=== PATIENT | female | born 1950 | race Caucasian/White ===

== ENCOUNTER 2017-07-10 11:35 | Emergency (ER) | payer MEDICARE, OTHER ==
--- NOTE | 2017-07-10 12:15 | PDOC ---
History of Present Illness - General Chief Complaint: Blood Sugar Problem Stated Complaint: Blood Sugar Problem Time Seen by Provider: 07/10/17 12:13 History Source: Patient - History of Present Illness Initial Comments: 07/10/17 12:49 66F with pmh of HTN, bleeding ulcers and anemia s/p transfusion 2 weeks ago presents with weakness and high blood sugar of 300 after pre-syncopal episode during visit to her PCP this morning [employer] Dr. Hazel Ledesma. Patient says that Dr. Ledesma asked her to stop taking her blood pressure medication. Called DR. Ledesma who said she was never on bloop pressure medication. He just told her to halve her Glipizide from 10mg to 5mg. Past History - Past Medical History Allergies/Adverse Reactions: Allergies Allergy/AdvReac Type Severity Reaction Status Date / Time No Known Allergies Allergy Verified 07/10/17 12:16 Home Medications: Ambulatory Orders Cholecalciferol (Vitamin D3) [Vitamin D3] 5,000 unit PO DAILY 07/10/17 Ferrous Sulfate [Ferosul] 300 mg PO DAILY 07/10/17 Glipizide 10 mg PO DAILY 07/10/17 Linagliptin [Tradjenta] 5 mg PO DAILY 07/10/17 Mesalamine [Asacol Hd -] 800 mg PO TID 07/10/17 Pantoprazole Sodium 40 mg PO DAILY 07/10/17 Review of Systems - Review of Systems Constitutional: No: Symptoms Reported HEENTM: No: Symptoms Reported Respiratory: No: Symptoms reported Cardiac (ROS): No: Symptoms Reported ABD/GI: No: Symptoms Reported : No: Symptoms Reported Musculoskeletal: Yes: Muscle Weakness (b/t) Neurological: Yes: Weakness *Physical Exam - Physical Exam General Appearance: Yes: Nourished, Appropriately Dressed, Apparent Distress HEENT: positive: EOMI, ESTEBAN, Normal ENT Inspection Neck: positive: Trachea midline. negative: Tender Respiratory/Chest: positive: Lungs Clear, Normal Breath Sounds. negative: Chest Tender Cardiovascular: positive: Regular Rhythm, Regular Rate, S1, S2 Vascular Pulses: Dorsalis-Pedis (R): 2+, Doralis-Pedis (L): 2+ Gastrointestinal/Abdominal: positive: Normal Bowel Sounds. negative: Tender Extremity: positive: Normal Capillary Refill Integumentary: positive: Normal Color Neurologic: positive: Fully Oriented, Alert, Normal Mood/Affect, Other (feels weaker) ED Treatment Course - LABORATORY CBC & Chemistry Diagram: 07/10/17 12:45 07/10/17 12:45 Medical Decision Making - Medical Decision Making 07/10/17 16:33 66F with pmh of HTN, bleeding ulcers and anemia s/p transfusion 2 weeks ago presents with weakness and high blood sugar of 300 after pre-syncopal episode during visit to her PCP this morning Anemia vs infection vs DKA - hyperglycemic event CBC negative for anemia, UA + for glucose, no ketones. Negative cardiac enzymes and EKG Spoke to Dr. Interiano who agrees to discharge patient and have her follow come to his office outpatient if she can ambulate. Patient able to ambulate, ready for discharge. 07/10/17 18:51 07/10/17 18:56 07/10/17 18:58 *DC/Admit/Observation/Transfer Diagnosis at time of Disposition: Hyperglycemia, Pre-syncope - Discharge Dispostion Disposition: HOME Condition at time of disposition: Improved Admit: No - Referrals Referrals: Thomas Interiano MD [Primary Care Provider] - - Patient Instructions Print Language: SWEDISH
[2017-07-10 12:16] VITALS: TEMP 98.4; BMI 34.7
[2017-07-10] MEDS ORDERED: SODIUM CHLORIDE 0.9% 1000 ML INFUS.BAG IV ONE (12:18)
[2017-07-10 12:52] LABS: BASOPHIL 0.2 % (0-2.0); EOSINOPHIL 0.3 % (0-4.5); MCHC 33.4 g/dl (32.0-36.0); MEAN CELL VOLUME 83.9 fl (80-96); NEUTROPHILS 82.3 % (42.8-82.8); PLATELET COUNT 151 K/MM3 (134-434); WHITE BLOOD COUNT 4.4 K/mm3 (4.0-10.0)
[2017-07-10 12:55] LABS: VENOUS BLOOD GAS HCO3 26.3 meq/L (19-25); VENOUS PH 7.42 (7.32-7.42)
[2017-07-10 13:20] LABS: CO2 28 mmol/L (21-32); GLUCOSE,RANDOM 260 mg/dL (74-106)
[2017-07-10 13:21] LABS: ALBUMIN 3.5 g/dl (3.4-5.0); ANION GAP 8 (8-16); CALCIUM 8.9 mg/dL (8.5-10.1); SGOT/AST 16 U/L (15-37); SGPT/ALT 30 U/L (12-78)
[2017-07-10 14:25] LABS: ALK PHOS 84 U/L (45-117); CREATININE 0.9 mg/dL (0.55-1.02); TOT PROT 6.8 g/dl (6.4-8.2)
[2017-07-10 16:11] LABS: BILIRUBIN,TOTAL 0.4 mg/dL (0.2-1.0)
[2017-07-10 16:17] LABS: URINE APPEARANCE CLEAR; URINE BILIRUBIN NEGATIVE (NEGATIVE); URINE BLOOD NEGATIVE (NEGATIVE); URINE COLOR COLORLESS; URINE GLUCOSE (UA) 3+ (NEGATIVE); URINE KETONE NEGATIVE (NEGATIVE); URINE LEUK ESTERASE NEGATIVE (NEGATIVE); URINE NITRITE NEGATIVE (NEGATIVE); URINE PROTEIN NEGATIVE (NEGATIVE); URINE UROBILINOGEN NEGATIVE mg/dL (0.2-1.0)
[2017-07-10 18:44] LABS: CPK 77 IU/L (26-192); TROPONIN I < 0.02 ng/ml (0.00-0.05)
[2017-07-10 19:09] VITALS: BP 158/75; PULSE 62
[2017-07-10 21:21] LABS: CPK 78 IU/L (26-192); TROPONIN I < 0.02 ng/ml (0.00-0.05)
--- NOTE | 2017-07-12 16:48 | EKG ---
Test Reason : Blood Pressure : / mmHG Vent. Rate : 083 BPM Atrial Rate : 083 BPM P-R Int : 154 ms QRS Dur : 072 ms QT Int : 380 ms P-R-T Axes : 054 001 010 degrees QTc Int : 446 ms NORMAL SINUS RHYTHM POSSIBLE LEFT ATRIAL ENLARGEMENT LEFT VENTRICULAR HYPERTROPHY ABNORMAL ECG NO PREVIOUS ECGS AVAILABLE Confirmed by LONNIE KHALIL MD ([id number]) on 07/12/2017 4:48:04 PM Referred By: Confirmed By:LONNIE KHALIL MD
== END 2017-07-10 19:10 | disposition home or self-care (01) ==
LOC: JER 11:35
DX: R73.9 Hyperglycemia, unspecified (principal); I10 Essential (primary) hypertension; D64.9 Anemia, unspecified
CPT/HCPCS: 36415; 80053; 81003; 82009; 82803; 84484; 85025; 93005; 93010; 99284-25

== ENCOUNTER 2017-09-18 17:40 | Inpatient (IN) | payer MEDICARE, OTHER ==
[2017-09-18 20:47] LABS: BASOPHIL 0.4 % (0-2.0); EOSINOPHIL 0.6 % (0-4.5); MCH 27.8 pg (25.7-33.7); MCHC 33.8 g/dl (32.0-36.0); MEAN CELL VOLUME 82.4 fl (80-96); MEAN PLT VOLUME 7.5 fl (7.5-11.1); NEUTROPHILS 81.7 % (42.8-82.8); PLATELET COUNT 220 K/MM3 (134-434); RDW 13.8 % (11.6-15.6)
--- NOTE | 2017-09-18 21:04 | PDOC ---
History of Present Illness <Ilda Rodriguez - Last Filed: 09/18/17 21:07> - General History Source: Patient Exam Limitations: No Limitations - History of Present Illness Initial Comments: 09/18/17 21:50 The patient is a 67 year old female, with a significant past medical history of NIDDM, HLD who presents to the emergency department with redness, swelling and pain to R foot for the past 5 days. Patient reports stepping on a nail on , and since then has been experiencing these symptoms. Patient has been treating the area with local cream however denies any relief. Upon arrival, patient reports headache. Patients vital signs significant for 99.3 temperature. She denies chest pain, dizziness. She denies abdominal pain, nausea, vomit, diarrhea or constipation. She denies dysuria, frequency, urgency or hematuria. Patient denies sick contacts or recent travel. <Unique Munoz - Last Filed: 09/18/17 21:51> - General Chief Complaint: Wound Infection Stated Complaint: FOOT INFECTION Time Seen by Provider: 09/18/17 19:23 Past History - Past Medical History Cancer: Yes (Uterine) Diabetes: Yes HTN: Yes - Immunization History Immunization Up to Date: Yes - Suicide/Smoking/Psychosocial Hx Smoking History: Never smoked Have you smoked in the past 12 months: No Information on smoking cessation initiated: No Hx Alcohol Use: No Drug/Substance Use Hx: No Substance Use Type: None <Ilda Rodriguez - Last Filed: 09/18/17 21:07> <Unique Munoz - Last Filed: 09/18/17 21:51> - Past Medical History Allergies/Adverse Reactions: Allergies Allergy/AdvReac Type Severity Reaction Status Date / Time No Known Allergies Allergy Verified 09/18/17 17:45 Home Medications: Ambulatory Orders Cholecalciferol (Vitamin D3) [Vitamin D3] 5,000 unit PO DAILY 07/10/17 Ferrous Sulfate [Ferosul] 300 mg PO BID 07/10/17 Linagliptin [Tradjenta] 5 mg PO DAILY 07/10/17 Mesalamine [Asacol Hd -] 800 mg PO TID 07/10/17 Pantoprazole Sodium 40 mg PO DAILY 07/10/17 Amlodipine Besylate 5 mg PO DAILY 09/18/17 Aspirin [ASA -] 81 mg PO DAILY 09/18/17 Hydrochlorothiazide [Hctz -] 12.5 mg PO DAILY 09/18/17 Insulin Degludec [Tresiba Flextouch U-100] 55 unit SQ DAILY 09/18/17 Metformin HCl 500 mg PO DAILY 09/18/17 Oxybutynin Chloride [Ditropan Xl] 10 mg PO DAILY 09/18/17 Psyllium Husk [Metamucil] 425 gm PO DAILY 09/18/17 Ramipril 2.5 mg PO DAILY 09/18/17 Review of Systems - Review of Systems Able to Perform ROS?: Yes Comments:: 09/18/17 21:50 CONSTITUTIONAL: Absent: fever, chills, diaphoresis, generalized weakness, malaise, loss of appetite HEENT: Absent: rhinorrhea, nasal congestion, throat pain, throat swelling, difficulty swallowing, mouth swelling, ear pain, eye pain, visual Changes CARDIOVASCULAR: Absent: chest pain, syncope, palpitations, irregular heart rate, lightheadedness , peripheral edema RESPIRATORY: Absent: cough, shortness of breath, dyspnea with exertion, orthopnea, wheezing, stridor, hemoptysis GASTROINTESTINAL: Absent: abdominal pain, abdominal distension, nausea, vomiting, diarrhea, constipation, melena, hematochezia GENITOURINARY: Absent: dysuria, frequency, urgency, hesitancy, hematuria, flank pain, genital pain MUSCULOSKELETAL: Absent: myalgia, arthralgia, joint swelling SKIN: + R foot puncture wound. Absent: rash, itching, pallor HEMATOLOGIC/IMMUNOLOGIC: Absent: easy bleeding, easy bruising, lymphadenopathy, frequent infections ENDOCRINE: Absent: unexplained weight gain, unexplained weight loss, heat intolerance, cold intolerance NEUROLOGIC: Absent: headache, focal weakness or paresthesias, dizziness, unsteady gait, seizure, mental status changes, bladder or bowel incontinence PSYCHIATRIC: Absent: anxiety, depression, suicidal or homicidal ideation, hallucinations. <Unique Munoz - Last Filed: 09/18/17 21:51> *Physical Exam - Vital Signs Last Vital Signs Temp Pulse Resp BP Pulse Ox 99.3 F 96 H 18 165/85 99 09/18/17 17:43 09/18/17 17:43 09/18/17 17:43 09/18/17 17:43 09/18/17 20:43 <Ilda Rodriguez - Last Filed: 09/18/17 21:07> - Vital Signs Last Vital Signs Temp Pulse Resp BP Pulse Ox 99.3 F 96 H 18 165/85 99 09/18/17 17:43 09/18/17 17:43 09/18/17 17:43 09/18/17 17:43 09/18/17 20:43 - Physical Exam Comments: 09/18/17 21:51 GENERAL: Well developed, well nourished. Awake and alert. No acute distress. HEENT: Normocephalic, atraumatic. PERRLA, EOMI. No conjunctival pallor. Sclera are non- icteric. Moist mucous membranes. Oropharynx is clear. NECK: Supple. Full ROM. No JVD. Carotid pulses 2+ and symmetric, without bruits. No thyromegaly. No lymphadenopathy. CARDIOVASCULAR: Regular rate and rhythm. +3/6 Systolic murmur. No rubs, or gallops. Distal pulses are 2+ and symmetric. PULMONARY: No evidence of respiratory distress. Lungs clear to auscultation bilaterally. No wheezing, rales or rhonchi. ABDOMINAL: Soft. Non-tender. Non-distended. No rebound or guarding. No organomegaly. Normoactive bowel sounds. MUSCULOSKELETAL Normal range of motion at all joints. No bony deformities or tenderness. No CVA tenderness. EXTREMITIES: +Warm, swollen, erythematous, R foot with streaking from knee to foot. +Puncture wound on ball of R foot. No cyanosis. No clubbing. No edema. No calf tenderness. SKIN: Warm and dry. Normal capillary refill. No rashes. No jaundice. NEUROLOGICAL: Alert, awake, appropriate. Cranial nerves 2-12 intact. No deficits to light touch and temperature in face, upper extremities and lower extremities. No motor deficits in the in face, upper extremities and lower extremities. Normoreflexic in the upper and lower extremities. Normal speech. Toes are down-going bilaterally. Gait is normal without ataxia. PSYCHIATRIC: Cooperative. Good eye contact. Appropriate mood and affect. <Unique Munoz - Last Filed: 09/18/17 21:51> ED Treatment Course - LABORATORY CBC & Chemistry Diagram: 09/18/17 20:30 09/18/17 20:30 - ADDITIONAL ORDERS Additional order review: 09/18/17 20:30 RBC 3.65 MCV 82.4 MCHC 33.8 RDW 13.8 MPV 7.5 Neutrophils % 81.7 Lymphocytes % 11.1 Monocytes % 6.2 Eosinophils % 0.6 D Basophils % 0.4 - RADIOLOGY Radiology Studies Ordered: Category Date Time Status CHEST X-RAY PORTABLE* [RAD] Stat Radiology 09/18/17 20:23 Ordered FOOT-RIGHT [RAD] Stat Radiology 09/18/17 20:37 Ordered <Ilda Rodriguez - Last Filed: 09/18/17 21:07> - LABORATORY CBC & Chemistry Diagram: 09/18/17 20:30 09/18/17 20:30 - ADDITIONAL ORDERS Additional order review: Laboratory Results 09/18/17 09/18/17 09/18/17 20:30 20:30 20:30 PT with INR 12.20 H INR 1.08 PTT (Actin FS) 29.2 Sodium 138 Potassium 4.6 Chloride 104 Carbon Dioxide 27 Anion Gap 7 L BUN 22 H Creatinine 1.1 H D Creat Clearance w eGFR 49.54 Random Glucose 165 H D Lactic Acid 1.1 Calcium 8.5 Total Bilirubin 0.5 D AST 12 L D ALT 35 Alkaline Phosphatase 81 Total Protein 7.2 Albumin 3.2 L 09/18/17 20:30 RBC 3.65 MCV 82.4 MCHC 33.8 RDW 13.8 MPV 7.5 Neutrophils % 81.7 Lymphocytes % 11.1 Monocytes % 6.2 Eosinophils % 0.6 D Basophils % 0.4 <Unique Munoz - Last Filed: 09/18/17 21:51> *DC/Admit/Observation/Transfer - Discharge Dispostion Admit: Yes <Ilda Rodriguez - Last Filed: 09/18/17 21:07> - Attestations Scribe Attestion: 09/18/17 21:51 Documentation prepared by Unique Munoz, acting as diagnostic medical sonographer for Ilda Rodriguez MD <Unique Munoz - Last Filed: 09/18/17 21:51> Diagnosis at time of Disposition: Puncture wound of foot without foreign body Qualifiers: Encounter type: initial encounter Laterality: right Qualified Code(s): S91.331A - Puncture wound without foreign body, right foot, initial encounter Cellulitis, leg Qualifiers: Laterality: right Qualified Code(s): L03.115 - Cellulitis of right lower limb Diabetes Qualifiers: Diabetes mellitus type: type 2 Diabetes mellitus complication status: with other specified complication Diabetes mellitus mcfp insulin use: without emt intermediate use Qualified Code(s): E11.69 - Type 2 diabetes mellitus with other specified complication - Referrals Referrals: Arlene Mcknight [Primary Care Provider] -
[2017-09-18 21:17] LABS: INR 1.08 (0.82-1.09); PROTHROMBIN TIME (PATIENT) 12.2 SEC (9.98-11.88)
[2017-09-18 21:19] LABS: ACTIVATED PTT 29.2 SECONDS (26.9-34.4)
[2017-09-18 21:25] LABS: ALBUMIN 3.2 g/dl (3.4-5.0); ALK PHOS 81 U/L (45-117); ANION GAP 7 (8-16); BILIRUBIN,TOTAL 0.5 mg/dL (0.2-1.0); CALCIUM 8.5 mg/dL (8.5-10.1); CO2 27 mmol/L (21-32); CREATININE 1.1 mg/dL (0.55-1.02); GLUCOSE,RANDOM 165 mg/dL (74-106); SGOT/AST 12 U/L (15-37); SGPT/ALT 35 U/L (12-78); TOT PROT 7.2 g/dl (6.4-8.2)
[2017-09-18] MEDS ORDERED: PIPERACILLIN/TAZOB 3.375 GM 50 ML IVPB ONE ×2 (22:25→22:32)
[2017-09-18] MEDS ORDERED: VANCOMYCIN 1,000 MG in DEXTROSE 5%-WATER - 250 ML IVPB STA (22:26)
[2017-09-18] MEDS ORDERED: TETANUS AND DIPHTHERIA TOXOID 0.5 ML DISP.SYRIN IM ONE (22:27)
[2017-09-18] MEDS ORDERED: VANCOMYCIN 1 GRAM (PRE-DOCKED) 250 ML IVPB ONE (22:32)
[2017-09-18] MEDS: HEPARIN NA (PORCINE) 5,000 UNITS/ML 1ML VIAL SQ SCH (22:50)
--- NOTE | 2017-09-18 22:58 | HP ---
Admitting History and Physical - Primary Care Physician PCP: Temo Guevara - Admission History of Present Illness: 67 year old female, with a significant past medical history of NIDDM, HLD who presents to the emergency department with redness, swelling and pain to R foot for the past 5 days. Patient reports stepping on a nail on , and since then has been experiencing these symptoms. Patient has been treating the area with local cream however denies any relief. Upon arrival, patient reports headache. Patients vital signs significant for 99.3 temperature. - Past Medical History Cardiovascular: Yes: HTN, Hyperlipdemia Endocrine: Yes: Diabetes Mellitus - Smoking History Smoking history: Never smoked Have you smoked in the past 12 months: No - Alcohol/Substance Use Hx Alcohol Use: No Home Medications - Allergies Allergies/Adverse Reactions: Allergies Allergy/AdvReac Type Severity Reaction Status Date / Time No Known Allergies Allergy Verified 09/18/17 17:45 - Home Medications Home Medications: Ambulatory Orders Cholecalciferol (Vitamin D3) [Vitamin D3] 5,000 unit PO DAILY 07/10/17 Ferrous Sulfate [Ferosul] 300 mg PO DAILY 07/10/17 Linagliptin [Tradjenta] 5 mg PO DAILY 07/10/17 Mesalamine [Asacol Hd -] 800 mg PO TID 07/10/17 Pantoprazole Sodium 40 mg PO DAILY 07/10/17 Amlodipine Besylate 5 mg PO DAILY 09/18/17 Aspirin [ASA -] 81 mg PO DAILY 09/18/17 Hydrochlorothiazide [Hctz -] 12.5 mg PO DAILY 09/18/17 Insulin Degludec [Tresiba Flextouch U-100] 55 unit SQ DAILY 09/18/17 Metformin HCl 500 mg PO DAILY 09/18/17 Oxybutynin Chloride [Ditropan Xl] 10 mg PO DAILY 09/18/17 Psyllium Husk [Metamucil] 425 gm PO DAILY 09/18/17 Ramipril 2.5 mg PO DAILY 09/18/17 Physical Examination Vital Signs: Vital Signs Temperature 99.3 F 09/18/17 17:43 Pulse Rate 96 H 09/18/17 17:43 Respiratory Rate 18 09/18/17 17:43 Blood Pressure 165/85 09/18/17 17:43 O2 Sat by Pulse Oximetry (%) 99 09/18/17 20:43 Constitutional: Yes: No Distress HENT: Yes: Atraumatic Neck: Yes: Supple Cardiovascular: Yes: Regular Rate and Rhythm Respiratory: Yes: CTA Bilaterally Gastrointestinal: Yes: Normal Bowel Sounds Extremities: Yes: Other (R foot cellulitis) Neurological: Yes: Alert, Oriented Problem List - Problems (1) Diabetes Assessment/Plan: insulin bgms Code(s): E11.9 - TYPE 2 DIABETES MELLITUS WITHOUT COMPLICATIONS Qualifiers: Diabetes mellitus type: type 2 Diabetes mellitus complication status: with other specified complication Diabetes mellitus senior care insulin use: without senior care use Qualified Code(s): E11.69 - Type 2 diabetes mellitus with other specified complication; E11.69 - Type 2 diabetes mellitus with other specified complication; E11.69 - Type 2 diabetes mellitus with other specified complication; E11.69 - Type 2 diabetes mellitus with other specified complication; Z79.4 - terminal carman (current) use of insulin; Z79.4 - terminal carman ( current) use of insulin; Z79.4 - terminal carman (current) use of insulin; Z79.4 - terminal carman (current) use of insulin (2) Puncture wound of foot without foreign body Assessment/Plan: iv abx id and ortho consult Code(s): S91.339A - PUNCTURE WOUND WITHOUT FOREIGN BODY, UNSP FOOT, INIT ENCNTR Qualifiers: Encounter type: initial encounter Laterality: right Qualified Code( s): S91.331A - Puncture wound without foreign body, right foot, initial encounter; S91.331A - Puncture wound without foreign body, right foot, initial encounter (3) Cellulitis and abscess of foot Code(s): L03.119 - CELLULITIS OF UNSPECIFIED PART OF LIMB L02.619 - CUTANEOUS ABSCESS OF UNSPECIFIED FOOT Assessment/Plan Laboratory Tests 09/18/17 09/18/17 09/18/17 20:30 20:30 20:30 WBC 7.0 D RBC 3.65 Hgb 10.2 L Hct 30.1 L MCV 82.4 MCH 27.8 MCHC 33.8 RDW 13.8 Plt Count 220 D MPV 7.5 Neutrophils % 81.7 Lymphocytes % 11.1 Monocytes % 6.2 Eosinophils % 0.6 D Basophils % 0.4 PT with INR 12.20 H INR 1.08 PTT (Actin FS) 29.2 Sodium 138 Potassium 4.6 Chloride 104 Carbon Dioxide 27 Anion Gap 7 L BUN 22 H Creatinine 1.1 H D Creat Clearance w eGFR 49.54 Random Glucose 165 H D Lactic Acid Calcium 8.5 Total Bilirubin 0.5 D AST 12 L D ALT 35 Alkaline Phosphatase 81 Total Protein 7.2 Albumin 3.2 L 09/18/17 20:30 WBC RBC Hgb Hct MCV MCH MCHC RDW Plt Count MPV Neutrophils % Lymphocytes % Monocytes % Eosinophils % Basophils % PT with INR INR PTT (Actin FS) Sodium Potassium Chloride Carbon Dioxide Anion Gap BUN Creatinine Creat Clearance w eGFR Random Glucose Lactic Acid 1.1 Calcium Total Bilirubin AST ALT Alkaline Phosphatase Total Protein Albumin Active Medications Generic Name Dose Route Start Last Admin Trade Name Freq PRN Reason Stop Dose Admin Amlodipine Besylate 5 mg 09/19/17 10:00 Norvasc - PO DAILY [facility] Aspirin 81 mg 09/19/17 10:00 Asa - PO DAILY [facility] Heparin Sodium (Porcine) 5,000 unit 09/18/17 22:49 Heparin - SQ BID [facility] Hydrochlorothiazide 12.5 mg 09/19/17 10:00 Hctz - PO DAILY [facility] Vancomycin HCl 1,000 mg/ 250 mls @ 250 mls/hr 09/18/17 22:26 09/18/17 22:46 Dextrose IVPB 09/18/17 23:25 250 mls/hr ONCE STA Administration Protocol Insulin Aspart 1 vial 09/19/17 07:00 Novolog Vial Sliding Scale - SQ ACHS [facility] Protocol Mesalamine 800 mg 09/19/17 06:00 Asacol Hd - PO TID [facility] Metformin HCl 500 mg 09/19/17 07:00 Glucophage - PO DAILY@0700 [facility] Non-Formulary Medication 10 mg 09/19/17 10:00 Oxybutynin Chloride [Ditropan Xl] PO DAILY [facility] Pantoprazole Sodium 40 mg 09/19/17 10:00 Protonix - PO DAILY [facility] Sitagliptin Phosphate 50 mg 09/19/17 07:00 Januvia - PO DAILY@0700 [facility]
[2017-09-19 01:19] VITALS: BMI 24.7
[2017-09-19] MEDS: metFORMIN HCL 500 MG TABLET (FP) PO SCH (06:08)
[2017-09-19] MEDS: sitaGLIPtin PHOSPHATE 50 MG TABLET PO SCH (06:08)
[2017-09-19] MEDS: MESALAMINE 800 MG TABLET.DR PO SCH ×4 (06:08→21:30)
[2017-09-19] MEDS: INSULIN SLIDING SCALE (NOVOLOG) 1 VIAL SQ SCH ×4 (06:09→21:29)
[2017-09-19] MEDS ORDERED: PT OWN MED DRAWER 7, Y5N ONE (09:07)
[2017-09-19] MEDS: amLODIPine BESYLATE 5 MG TABLET (FP) PO SCH (09:09)
[2017-09-19] MEDS: ASPIRIN 81 MG CHEWABLE TABLETS PO SCH (09:09)
[2017-09-19] MEDS: HYDROCHLOROTHIAZIDE 12.5 MG CAPSULE (FP) PO SCH (09:09)
[2017-09-19] MEDS: PANTOPRAZOLE 40 MG TABLET (FP) PO SCH (09:09)
[2017-09-19] MEDS: HEPARIN NA (PORCINE) 5,000 UNITS/ML 1ML VIAL SQ SCH ×2 (09:09→21:30)
[2017-09-19] MEDS ORDERED: PATIENT'S OWN MEDICATION (NON-FORMULARY) (Oxybutynin Chloride [Ditropan Xl] 10 MG) PO SCH (10:00)
[2017-09-19] MEDS ORDERED: INSULIN (NOVOLOG) ASPART 100 UNITS/ML 10ML VIAL ONE ×2 (11:25→21:04)
--- NOTE | 2017-09-19 15:44 | CON.ID ---
Consult Consult Specialty:: infectious diseases Reason for Consultation:: cellulitits of the rt leg and foot/nail injury - History of Present Illness Chief Complaint: pain swelling and redness of the rt leg History of Present Illness: 67 year old female, with a significant past medical history of NIDDM, HLD admitted with redness, swelling and pain to R foot for the past 5 days. Patient reports stepping on a nail on , and since then has been experiencing these symptoms. Patient has been treating the area with local cream however denies any relief. Upon arrival, patient reports headache. Patients vital signs significant for 99.3 temperature. patient lives in a basement and did not know the nail was there now she is c/o of pain and swelling which has not improved - History Source History Provided By: Patient Limitations to Obtaining History: Language Barrier - Past Medical History Cardio/Vascular: Yes: HTN, Hyperlipdemia Endocrine: Yes: Diabetes Mellitus - Alcohol/Substance Use Hx Alcohol Use: No - Smoking History Smoking history: Never smoked Have you smoked in the past 12 months: No Home Medications - Allergies Allergies/Adverse Reactions: Allergies Allergy/AdvReac Type Severity Reaction Status Date / Time No Known Allergies Allergy Verified 09/18/17 17:45 - Home Medications Home Medications: Ambulatory Orders Cholecalciferol (Vitamin D3) [Vitamin D3] 5,000 unit PO DAILY 07/10/17 Ferrous Sulfate [Ferosul] 300 mg PO DAILY 07/10/17 Linagliptin [Tradjenta] 5 mg PO DAILY 07/10/17 Mesalamine [Asacol Hd -] 800 mg PO TID 07/10/17 Pantoprazole Sodium 40 mg PO DAILY 07/10/17 Amlodipine Besylate 5 mg PO DAILY 09/18/17 Aspirin [ASA -] 81 mg PO DAILY 09/18/17 Hydrochlorothiazide [Hctz -] 12.5 mg PO DAILY 09/18/17 Insulin Degludec [Tresiba Flextouch U-100] 55 unit SQ DAILY 09/18/17 Metformin HCl 500 mg PO DAILY 09/18/17 Oxybutynin Chloride [Ditropan Xl] 10 mg PO DAILY 09/18/17 Psyllium Husk [Metamucil] 425 gm PO DAILY 09/18/17 Ramipril 2.5 mg PO DAILY 09/18/17 Review of Systems - Review of Systems Constitutional: reports: No Symptoms Eyes: reports: No Symptoms HENT: reports: No Symptoms Neck: reports: No Symptoms Cardiovascular: reports: No Symptoms Respiratory: reports: No Symptoms Gastrointestinal: reports: No Symptoms Genitourinary: reports: No Symptoms Musculoskeletal: reports: Muscle Pain, Other Integumentary: reports: Change in Color, Erythema, Wound Neurological: reports: No Symptoms Endocrine: reports: No Symptoms Hematology/Lymphatic: reports: No Symptoms Psychiatric: reports: No Symptoms Physical Exam Vital Signs: Vital Signs Temperature 99.1 F 09/19/17 14:12 Pulse Rate 84 09/19/17 14:12 Respiratory Rate 20 09/19/17 14:12 Blood Pressure 153/63 09/19/17 14:12 O2 Sat by Pulse Oximetry (%) 98 09/19/17 09:00 Constitutional: Yes: Well Nourished, Calm, Mild Distress Eyes: Yes: Conjunctiva Clear HENT: Yes: Atraumatic Neck: Yes: Supple, Trachea Midline Cardiovascular: Yes: Regular Rate and Rhythm Respiratory: Yes: Regular, CTA Bilaterally Gastrointestinal: Yes: Normal Bowel Sounds, Soft Musculoskeletal: Yes: Muscle Pain, Other Extremities: Yes: Erythema, Other (nail njury site noted) Integumentary: Yes: Erythema, Other Wound/Incision: Yes: Clean/Dry Neurological: Yes: Alert, Oriented Psychiatric: Yes: Alert, Oriented Imaging - Results Chest X-ray: Report Reviewed, Image Reviewed X-ray: Report Reviewed, Image Reviewed Assessment/Plan history noted,also noticed streaking of the leg and swelling and tenderness Problem List - Problems (1) Diabetes Code(s): E11.9 - TYPE 2 DIABETES MELLITUS WITHOUT COMPLICATIONS Qualifiers: Diabetes mellitus type: type 2 Diabetes mellitus complication status: with other specified complication Diabetes mellitus mcc insulin use: without mcc use Qualified Code(s): E11.69 - Type 2 diabetes mellitus with other specified complication; E11.69 - Type 2 diabetes mellitus with other specified complication; E11.69 - Type 2 diabetes mellitus with other specified complication; E11.69 - Type 2 diabetes mellitus with other specified complication; Z79.4 - office services coordinator (current) use of insulin; Z79.4 - snf ( current) use of insulin; Z79.4 - snf (current) use of insulin; Z79.4 - snf (current) use of insulin (2) Puncture wound of foot without foreign body Code(s): S91.339A - PUNCTURE WOUND WITHOUT FOREIGN BODY, UNSP FOOT, INIT ENCNTR Qualifiers: Encounter type: initial encounter Laterality: right Qualified Code( s): S91.331A - Puncture wound without foreign body, right foot, initial encounter; S91.331A - Puncture wound without foreign body, right foot, initial encounter (3) Cellulitis and abscess of foot Code(s): L03.119 - CELLULITIS OF UNSPECIFIED PART OF LIMB L02.619 - CUTANEOUS ABSCESS OF UNSPECIFIED FOOT plan patient going to need abx for few days started on vanco and zosyn elevation of leg rest as per primary team
[2017-09-19] MEDS: PIPERACILLIN/TAZOB 3.375 GM 50 ML IVPB SCH (16:09)
--- NOTE | 2017-09-19 16:35 | PN ---
Progress Note, Physician - Current Medication List Current Medications: Active Medications Amlodipine Besylate (Norvasc -) 5 mg PO DAILY [facility] Last Admin: 09/19/17 09:09 Dose: 5 mg Aspirin (Asa -) 81 mg PO DAILY [facility] Last Admin: 09/19/17 09:09 Dose: 81 mg Heparin Sodium (Porcine) (Heparin -) 5,000 unit SQ BID [facility] Last Admin: 09/19/17 09:09 Dose: 5,000 unit Hydrochlorothiazide (Hctz -) 12.5 mg PO DAILY [facility] Last Admin: 09/19/17 09:09 Dose: 12.5 mg Vancomycin HCl 1,250 mg/ (Dextrose) 250 mls @ 166.667 mls/hr IVPB DAILY@2200 [facility] PRN Reason: Protocol Piperacillin/Tazobactam/Dextrose (Zosyn 3.375gm Ivpb (Premix)) 50 mls @ 100 mls /hr IVPB Q8H-IV [facility] PRN Reason: Protocol Last Admin: 09/19/17 16:09 Dose: 100 mls/hr Insulin Aspart (Novolog Vial Sliding Scale -) 1 vial SQ ACHS [facility] PRN Reason: Protocol Last Admin: 09/19/17 11:27 Dose: 4 units Mesalamine (Asacol Hd -) 800 mg PO TID [facility] Last Admin: 09/19/17 15:47 Dose: 800 mg Metformin HCl (Glucophage -) 500 mg PO DAILY@0700 [facility] Last Admin: 09/19/17 06:08 Dose: 500 mg Oxybutynin Chloride (Ditropan -) 5 mg PO BID [facility] Pantoprazole Sodium (Protonix -) 40 mg PO DAILY [facility] Last Admin: 09/19/17 09:09 Dose: 40 mg Sitagliptin Phosphate (Januvia -) 50 mg PO DAILY@0700 [facility] Last Admin: 09/19/17 06:08 Dose: 50 mg - Objective Vital Signs: Vital Signs Temperature 99.1 F 09/19/17 14:12 Pulse Rate 84 09/19/17 14:12 Respiratory Rate 20 09/19/17 14:12 Blood Pressure 153/63 09/19/17 14:12 O2 Sat by Pulse Oximetry (%) 98 09/19/17 09:00 Constitutional: Yes: No Distress HENT: Yes: Atraumatic Neck: Yes: Supple Cardiovascular: Yes: Regular Rate and Rhythm Respiratory: Yes: CTA Bilaterally Gastrointestinal: Yes: Normal Bowel Sounds Extremities: Yes: Other (r foot cellulitis) Neurological: Yes: Alert, Oriented Labs: INR, PTT INR 1.08 (0.82-1.09) 09/18/17 20:30 Problem List - Problems (1) Diabetes Assessment/Plan: insulin bgms Code(s): E11.9 - TYPE 2 DIABETES MELLITUS WITHOUT COMPLICATIONS Qualifiers: Diabetes mellitus type: type 2 Diabetes mellitus complication status: with other specified complication Diabetes mellitus local company intermodal truck driver insulin use: without shelter use Qualified Code(s): E11.69 - Type 2 diabetes mellitus with other specified complication; E11.69 - Type 2 diabetes mellitus with other specified complication; E11.69 - Type 2 diabetes mellitus with other specified complication; E11.69 - Type 2 diabetes mellitus with other specified complication; Z79.4 - termite helper (current) use of insulin; Z79.4 - long-term ( current) use of insulin; Z79.4 - termite helper (current) use of insulin; Z79.4 - termite helper (current) use of insulin (2) Puncture wound of foot without foreign body Assessment/Plan: iv abx id and ortho consult Code(s): S91.339A - PUNCTURE WOUND WITHOUT FOREIGN BODY, UNSP FOOT, INIT ENCNTR Qualifiers: Encounter type: initial encounter Laterality: right Qualified Code( s): S91.331A - Puncture wound without foreign body, right foot, initial encounter; S91.331A - Puncture wound without foreign body, right foot, initial encounter (3) Cellulitis and abscess of foot Code(s): L03.119 - CELLULITIS OF UNSPECIFIED PART OF LIMB L02.619 - CUTANEOUS ABSCESS OF UNSPECIFIED FOOT
--- NOTE | 2017-09-19 16:39 | PN ---
Progress Note (short form) - Note Progress Note: Pt seen and examined. She does not speak israeli. She sustained a puncture wound to the right foot, after stepping on a nail 4 days ago. The right foot became increasingly swollen, red, painful. No pus or discharge. WBC=7.0 Bld Cx Pending PE Right foot with moderate swelling, erythema, tenderness. Grossly NVI. Good ROM at the ankle, but ROM of the foot is painful. No drainage, no obvious fluid collection. Imp Right foot cellulitis s/p puncture wound. No surgery required at this time. Rec No surgery necessary at this time. Con't IV antibiotics and elevation.
--- NOTE | 2017-09-19 19:52 | EKG ---
Test Reason : Blood Pressure : / mmHG Vent. Rate : 085 BPM Atrial Rate : 085 BPM P-R Int : 156 ms QRS Dur : 074 ms QT Int : 370 ms P-R-T Axes : 057 012 028 degrees QTc Int : 440 ms NORMAL SINUS RHYTHM MINIMAL VOLTAGE CRITERIA FOR LVH, MAY BE NORMAL VARIANT NONSPECIFIC ST ABNORMALITY ABNORMAL ECG WHEN COMPARED WITH ECG OF 10-JUL-2017 11:55, NO SIGNIFICANT CHANGE WAS FOUND REPEATV IF INDICATED Confirmed by LONNIE KHALIL MD ([id number]) on 09/19/2017 7:52:07 PM Referred By: Confirmed By:LONNIE KHALIL MD
[2017-09-19] MEDS: VANCOMYCIN 1,250 MG in DEXTROSE 5%-WATER - 250 ML IVPB SCH (21:30)
[2017-09-19] MEDS: OXYBUTYNIN CHLORIDE 5 MG TABLET PO SCH (21:30)
[2017-09-19] MEDS: ACETAMINOPHEN 325 MG TABLET (FP) PO PRN (21:53)
[2017-09-20] MEDS: PIPERACILLIN/TAZOB 3.375 GM 50 ML IVPB SCH ×3 (01:21→17:17)
[2017-09-20] MEDS: metFORMIN HCL 500 MG TABLET (FP) PO SCH (06:16)
[2017-09-20] MEDS: sitaGLIPtin PHOSPHATE 50 MG TABLET PO SCH (06:16)
[2017-09-20] MEDS: MESALAMINE 800 MG TABLET.DR PO SCH ×3 (06:17→21:38)
[2017-09-20] MEDS: INSULIN SLIDING SCALE (NOVOLOG) 1 VIAL SQ SCH ×4 (06:18→21:39)
[2017-09-20] MEDS ORDERED: INSULIN (NOVOLOG) ASPART 100 UNITS/ML 10ML VIAL ONE ×2 (06:40→11:53)
--- NOTE | 2017-09-20 09:35 | PN ---
Progress Note (short form) - Note Progress Note: Ortho Pt seen and examined s/p puncture wound right foot Selected Entries 09/20/17 09:13 Temperature 98.3 F Pulse Rate 87 Respiratory 20 Rate Blood Pressure 144/65 Laboratory Tests 09/18/17 20:30 Hgb 10.2 L Hct 30.1 L Plt Count 220 D + swelling, + errythema that has not extended, + ttp nvi a/p Abx as per ID no surgery at this time elevation pain control will follow d/w Dr. Patel
[2017-09-20] MEDS ORDERED: PT OWN MED DRAWER 7, Y5N ONE ×5 (09:52→21:31)
[2017-09-20] MEDS: ASPIRIN 81 MG CHEWABLE TABLETS PO SCH (09:54)
[2017-09-20] MEDS: amLODIPine BESYLATE 5 MG TABLET (FP) PO SCH (09:54)
[2017-09-20] MEDS: OXYBUTYNIN CHLORIDE 5 MG TABLET PO SCH ×2 (09:54→21:38)
[2017-09-20] MEDS: HEPARIN NA (PORCINE) 5,000 UNITS/ML 1ML VIAL SQ SCH ×2 (09:55→21:39)
[2017-09-20] MEDS: HYDROCHLOROTHIAZIDE 12.5 MG CAPSULE (FP) PO SCH (09:55)
[2017-09-20] MEDS: PANTOPRAZOLE 40 MG TABLET (FP) PO SCH (09:55)
--- NOTE | 2017-09-20 15:40 | PN ---
Progress Note, Physician History of Present Illness: swelling slightly better cellulitis better pain still present - Current Medication List Current Medications: Active Medications Acetaminophen (Tylenol -) 650 mg PO Q6H PRN PRN Reason: FEVER OR PAIN Last Admin: 09/19/17 21:53 Dose: 650 mg Amlodipine Besylate (Norvasc -) 5 mg PO DAILY [facility] Last Admin: 09/20/17 09:54 Dose: 5 mg Aspirin (Asa -) 81 mg PO DAILY [facility] Last Admin: 09/20/17 09:54 Dose: 81 mg Heparin Sodium (Porcine) (Heparin -) 5,000 unit SQ BID [facility] Last Admin: 09/20/17 09:55 Dose: 5,000 unit Hydrochlorothiazide (Hctz -) 12.5 mg PO DAILY [facility] Last Admin: 09/20/17 09:55 Dose: 12.5 mg Vancomycin HCl 1,250 mg/ (Dextrose) 250 mls @ 166.667 mls/hr IVPB DAILY@2200 [facility] PRN Reason: Protocol Last Admin: 09/19/17 21:30 Dose: 166.667 mls/hr Piperacillin/Tazobactam/Dextrose (Zosyn 3.375gm Ivpb (Premix)) 50 mls @ 100 mls /hr IVPB Q8H-IV [facility] PRN Reason: Protocol Last Admin: 09/20/17 11:39 Dose: 100 mls/hr Insulin Aspart (Novolog Vial Sliding Scale -) 1 vial SQ ACHS [facility] PRN Reason: Protocol Last Admin: 09/20/17 11:54 Dose: 4 units Mesalamine (Asacol Hd -) 800 mg PO TID [facility] Last Admin: 09/20/17 14:18 Dose: 800 mg Metformin HCl (Glucophage -) 500 mg PO DAILY@0700 [facility] Last Admin: 09/20/17 06:16 Dose: 500 mg Oxybutynin Chloride (Ditropan -) 5 mg PO BID [facility] Last Admin: 09/20/17 09:54 Dose: 5 mg Pantoprazole Sodium (Protonix -) 40 mg PO DAILY [facility] Last Admin: 09/20/17 09:55 Dose: 40 mg Sitagliptin Phosphate (Januvia -) 50 mg PO DAILY@0700 [facility] Last Admin: 09/20/17 06:16 Dose: 50 mg - Objective Vital Signs: Vital Signs Temperature 99.5 F 09/20/17 15:12 Pulse Rate 86 09/20/17 15:12 Respiratory Rate 20 09/20/17 15:12 Blood Pressure 139/77 09/20/17 15:12 O2 Sat by Pulse Oximetry (%) 100 09/20/17 09:00 Constitutional: Yes: No Distress, Calm Neck: Yes: Supple, Trachea Midline Cardiovascular: Yes: Regular Rate and Rhythm Respiratory: Yes: Regular, CTA Bilaterally Gastrointestinal: Yes: Normal Bowel Sounds, Soft Musculoskeletal: Yes: WNL Extremities: Yes: Other Integumentary: Yes: Erythema Wound/Incision: Yes: Clean/Dry Neurological: Yes: Alert, Oriented Psychiatric: Yes: Alert, Oriented Labs: INR, PTT INR 1.08 (0.82-1.09) 09/18/17 20:30 Assessment/Plan history noted,also noticed streaking of the leg and swelling and tenderness Problem List - Problems (1) Diabetes Code(s): E11.9 - TYPE 2 DIABETES MELLITUS WITHOUT COMPLICATIONS Qualifiers: Diabetes mellitus type: type 2 Diabetes mellitus complication status: with other specified complication Diabetes mellitus custodial insulin use: without intermodal dispatcher use Qualified Code(s): E11.69 - Type 2 diabetes mellitus with other specified complication; E11.69 - Type 2 diabetes mellitus with other specified complication; E11.69 - Type 2 diabetes mellitus with other specified complication; E11.69 - Type 2 diabetes mellitus with other specified complication; Z79.4 - shelter (current) use of insulin; Z79.4 - shelter ( current) use of insulin; Z79.4 - bed bug exterminator (current) use of insulin; Z79.4 - bed bug exterminator (current) use of insulin (2) Puncture wound of foot without foreign body Code(s): S91.339A - PUNCTURE WOUND WITHOUT FOREIGN BODY, UNSP FOOT, INIT ENCNTR Qualifiers: Encounter type: initial encounter Laterality: right Qualified Code( s): S91.331A - Puncture wound without foreign body, right foot, initial encounter; S91.331A - Puncture wound without foreign body, right foot, initial encounter (3) Cellulitis and abscess of foot Code(s): L03.119 - CELLULITIS OF UNSPECIFIED PART OF LIMB L02.619 - CUTANEOUS ABSCESS OF UNSPECIFIED FOOT punctuate wound plan continue abx follow the cellulitits elevation of the leg rest as per primary
--- NOTE | 2017-09-20 17:44 | PN ---
Progress Note, Physician - Current Medication List Current Medications: Active Medications Acetaminophen (Tylenol -) 650 mg PO Q6H PRN PRN Reason: FEVER OR PAIN Last Admin: 09/19/17 21:53 Dose: 650 mg Amlodipine Besylate (Norvasc -) 5 mg PO DAILY [facility] Last Admin: 09/20/17 09:54 Dose: 5 mg Aspirin (Asa -) 81 mg PO DAILY [facility] Last Admin: 09/20/17 09:54 Dose: 81 mg Heparin Sodium (Porcine) (Heparin -) 5,000 unit SQ BID [facility] Last Admin: 09/20/17 09:55 Dose: 5,000 unit Hydrochlorothiazide (Hctz -) 12.5 mg PO DAILY [facility] Last Admin: 09/20/17 09:55 Dose: 12.5 mg Vancomycin HCl 1,250 mg/ (Dextrose) 250 mls @ 166.667 mls/hr IVPB DAILY@2200 [facility] PRN Reason: Protocol Last Admin: 09/19/17 21:30 Dose: 166.667 mls/hr Piperacillin/Tazobactam/Dextrose (Zosyn 3.375gm Ivpb (Premix)) 50 mls @ 100 mls /hr IVPB Q8H-IV [facility] PRN Reason: Protocol Last Admin: 09/20/17 17:17 Dose: 100 mls/hr Insulin Aspart (Novolog Vial Sliding Scale -) 1 vial SQ ACHS [facility] PRN Reason: Protocol Last Admin: 09/20/17 17:17 Dose: 4 units Mesalamine (Asacol Hd -) 800 mg PO TID [facility] Last Admin: 09/20/17 14:18 Dose: 800 mg Metformin HCl (Glucophage -) 500 mg PO DAILY@0700 [facility] Last Admin: 09/20/17 06:16 Dose: 500 mg Oxybutynin Chloride (Ditropan -) 5 mg PO BID [facility] Last Admin: 09/20/17 09:54 Dose: 5 mg Pantoprazole Sodium (Protonix -) 40 mg PO DAILY [facility] Last Admin: 09/20/17 09:55 Dose: 40 mg Sitagliptin Phosphate (Januvia -) 50 mg PO DAILY@0700 [facility] Last Admin: 09/20/17 06:16 Dose: 50 mg - Objective Vital Signs: Vital Signs Temperature 99.5 F 09/20/17 15:12 Pulse Rate 86 09/20/17 15:12 Respiratory Rate 20 09/20/17 15:12 Blood Pressure 139/77 09/20/17 15:12 O2 Sat by Pulse Oximetry (%) 100 09/20/17 09:00 Constitutional: Yes: No Distress HENT: Yes: Atraumatic Neck: Yes: Supple Cardiovascular: Yes: Regular Rate and Rhythm Respiratory: Yes: CTA Bilaterally Gastrointestinal: Yes: Normal Bowel Sounds Extremities: Yes: Other (R foot cellulitis) Neurological: Yes: Alert, Oriented Labs: INR, PTT INR 1.08 (0.82-1.09) 09/18/17 20:30 Problem List - Problems (1) Diabetes Assessment/Plan: insulin bgms Code(s): E11.9 - TYPE 2 DIABETES MELLITUS WITHOUT COMPLICATIONS Qualifiers: Diabetes mellitus type: type 2 Diabetes mellitus complication status: with other specified complication Diabetes mellitus prison insulin use: without oil heaterman use Qualified Code(s): E11.69 - Type 2 diabetes mellitus with other specified complication; E11.69 - Type 2 diabetes mellitus with other specified complication; E11.69 - Type 2 diabetes mellitus with other specified complication; E11.69 - Type 2 diabetes mellitus with other specified complication; Z79.4 - skilled nursing (current) use of insulin; Z79.4 - intermediate card tender ( current) use of insulin; Z79.4 - intermediate card tender (current) use of insulin; Z79.4 - intermediate card tender (current) use of insulin (2) Puncture wound of foot without foreign body Assessment/Plan: iv abx id and ortho consult Code(s): S91.339A - PUNCTURE WOUND WITHOUT FOREIGN BODY, UNSP FOOT, INIT ENCNTR Qualifiers: Encounter type: initial encounter Laterality: right Qualified Code( s): S91.331A - Puncture wound without foreign body, right foot, initial encounter; S91.331A - Puncture wound without foreign body, right foot, initial encounter (3) Cellulitis and abscess of foot Code(s): L03.119 - CELLULITIS OF UNSPECIFIED PART OF LIMB L02.619 - CUTANEOUS ABSCESS OF UNSPECIFIED FOOT
[2017-09-20] MEDS: VANCOMYCIN 1,250 MG in DEXTROSE 5%-WATER - 250 ML IVPB SCH (21:46)
[2017-09-21] MEDS: PIPERACILLIN/TAZOB 3.375 GM 50 ML IVPB SCH ×3 (02:14→17:18)
[2017-09-21] MEDS: MESALAMINE 800 MG TABLET.DR PO SCH ×3 (06:14→21:50)
[2017-09-21] MEDS: metFORMIN HCL 500 MG TABLET (FP) PO SCH (06:15)
[2017-09-21] MEDS: INSULIN SLIDING SCALE (NOVOLOG) 1 VIAL SQ SCH ×5 (06:16→21:51)
[2017-09-21] MEDS: sitaGLIPtin PHOSPHATE 50 MG TABLET PO SCH (06:16)
[2017-09-21 07:34] LABS: BASOPHIL 0.3 % (0-2.0); EOSINOPHIL 0.7 % (0-4.5); MCH 27.1 pg (25.7-33.7); MEAN CELL VOLUME 79.6 fl (80-96); MEAN PLT VOLUME 7.3 fl (7.5-11.1); NEUTROPHILS 77.2 % (42.8-82.8); PLATELET COUNT 224 K/MM3 (134-434); RDW 13.8 % (11.6-15.6); WHITE BLOOD COUNT 7.2 K/mm3 (4.0-10.0)
[2017-09-21 08:03] LABS: ALBUMIN 2.7 g/dl (3.4-5.0); ANION GAP 7 (8-16); CALCIUM 8.3 mg/dL (8.5-10.1); CO2 27 mmol/L (21-32)
[2017-09-21 08:06] LABS: ALK PHOS 88 U/L (45-117); BILIRUBIN,TOTAL 0.5 mg/dL (0.2-1.0); GLUCOSE,RANDOM 174 mg/dL (74-106); SGOT/AST 19 U/L (15-37); SGPT/ALT 37 U/L (12-78); TOT PROT 6.5 g/dl (6.4-8.2)
[2017-09-21] MEDS ORDERED: PT OWN MED DRAWER 7, Y5N ONE ×2 (09:05→21:15)
[2017-09-21] MEDS: HYDROCHLOROTHIAZIDE 12.5 MG CAPSULE (FP) PO SCH (09:19)
[2017-09-21] MEDS: ASPIRIN 81 MG CHEWABLE TABLETS PO SCH (09:19)
[2017-09-21] MEDS: amLODIPine BESYLATE 5 MG TABLET (FP) PO SCH (09:19)
[2017-09-21] MEDS: HEPARIN NA (PORCINE) 5,000 UNITS/ML 1ML VIAL SQ SCH ×2 (09:19→21:51)
[2017-09-21] MEDS: PANTOPRAZOLE 40 MG TABLET (FP) PO SCH (09:19)
[2017-09-21] MEDS: OXYBUTYNIN CHLORIDE 5 MG TABLET PO SCH ×2 (09:19→21:50)
[2017-09-21] MEDS ORDERED: INSULIN (NOVOLOG) ASPART 100 UNITS/ML 10ML VIAL ONE (11:56)
--- NOTE | 2017-09-21 15:14 | PN ---
Progress Note, Physician History of Present Illness: patient still with c/o of the foot foot still swollen and now i think has formed pus tenderness present redness still there - Current Medication List Current Medications: Active Medications Acetaminophen (Tylenol -) 650 mg PO Q6H PRN PRN Reason: FEVER OR PAIN Last Admin: 09/19/17 21:53 Dose: 650 mg Amlodipine Besylate (Norvasc -) 5 mg PO DAILY [facility] Last Admin: 09/21/17 09:19 Dose: 5 mg Aspirin (Asa -) 81 mg PO DAILY [facility] Last Admin: 09/21/17 09:19 Dose: 81 mg Heparin Sodium (Porcine) (Heparin -) 5,000 unit SQ BID [facility] Last Admin: 09/21/17 09:19 Dose: 5,000 unit Hydrochlorothiazide (Hctz -) 12.5 mg PO DAILY [facility] Last Admin: 09/21/17 09:19 Dose: 12.5 mg Vancomycin HCl 1,250 mg/ (Dextrose) 250 mls @ 166.667 mls/hr IVPB DAILY@2200 [facility] PRN Reason: Protocol Last Admin: 09/20/17 21:46 Dose: 166.667 mls/hr Piperacillin/Tazobactam/Dextrose (Zosyn 3.375gm Ivpb (Premix)) 50 mls @ 100 mls /hr IVPB Q8H-IV [facility] PRN Reason: Protocol Last Admin: 09/21/17 09:19 Dose: 100 mls/hr Insulin Aspart (Novolog Vial Sliding Scale -) 1 vial SQ ACHS [facility] PRN Reason: Protocol Last Admin: 09/21/17 12:07 Dose: 4 units Mesalamine (Asacol Hd -) 800 mg PO TID [facility] Last Admin: 09/21/17 14:20 Dose: 800 mg Metformin HCl (Glucophage -) 500 mg PO DAILY@0700 [facility] Last Admin: 09/21/17 06:15 Dose: 500 mg Oxybutynin Chloride (Ditropan -) 5 mg PO BID [facility] Last Admin: 09/21/17 09:19 Dose: 5 mg Pantoprazole Sodium (Protonix -) 40 mg PO DAILY [facility] Last Admin: 09/21/17 09:19 Dose: 40 mg Sitagliptin Phosphate (Januvia -) 50 mg PO DAILY@0700 [facility] Last Admin: 10/26/17 06:16 Dose: 50 mg - Objective Vital Signs: Vital Signs Temperature 97.9 F 09/21/17 14:09 Pulse Rate 79 09/21/17 14:09 Respiratory Rate 20 09/21/17 14:09 Blood Pressure 131/65 09/21/17 14:09 O2 Sat by Pulse Oximetry (%) 98 09/20/17 21:00 Constitutional: Yes: Calm, Mild Distress Eyes: Yes: Conjunctiva Clear HENT: Yes: Atraumatic Cardiovascular: Yes: Regular Rate and Rhythm Respiratory: Yes: Regular, CTA Bilaterally Gastrointestinal: Yes: Normal Bowel Sounds, Soft Musculoskeletal: Yes: Other Extremities: Yes: Other (left foot abscess) Integumentary: Yes: Erythema, Other Wound/Incision: Yes: Open to air Neurological: Yes: Alert, Oriented Psychiatric: Yes: Alert, Oriented Labs: CBC, BMP 09/21/17 06:00 09/21/17 06:00 INR, PTT INR 1.08 (0.82-1.09) 09/18/17 20:30 Assessment/Plan history noted,also noticed streaking of the leg and swelling and tenderness Problem List - Problems (1) Diabetes Code(s): E11.9 - TYPE 2 DIABETES MELLITUS WITHOUT COMPLICATIONS Qualifiers: Diabetes mellitus type: type 2 Diabetes mellitus complication status: with other specified complication Diabetes mellitus intermediate accountant insulin use: without intermediate accountant use Qualified Code(s): E11.69 - Type 2 diabetes mellitus with other specified complication; E11.69 - Type 2 diabetes mellitus with other specified complication; E11.69 - Type 2 diabetes mellitus with other specified complication; E11.69 - Type 2 diabetes mellitus with other specified complication; Z79.4 - long-term (current) use of insulin; Z79.4 - long-term ( current) use of insulin; Z79.4 - long-term (current) use of insulin; Z79.4 - long-term (current) use of insulin (2) Puncture wound of foot without foreign body Code(s): S91.339A - PUNCTURE WOUND WITHOUT FOREIGN BODY, UNSP FOOT, INIT ENCNTR Qualifiers: Encounter type: initial encounter Laterality: right Qualified Code( s): S91.331A - Puncture wound without foreign body, right foot, initial encounter; S91.331A - Puncture wound without foreign body, right foot, initial encounter (3) Cellulitis and abscess of foot Code(s): L03.119 - CELLULITIS OF UNSPECIFIED PART OF LIMB L02.619 - CUTANEOUS ABSCESS OF UNSPECIFIED FOOT punctuate wound plan continue abx follow the cellulitits patient needs incision and drainage rest as per the team
--- NOTE | 2017-09-21 19:41 | PN ---
Progress Note, Physician History of Present Illness: no complaints - Current Medication List Current Medications: Active Medications Acetaminophen (Tylenol -) 650 mg PO Q6H PRN PRN Reason: FEVER OR PAIN Last Admin: 09/19/17 21:53 Dose: 650 mg Amlodipine Besylate (Norvasc -) 5 mg PO DAILY [facility] Last Admin: 09/21/17 09:19 Dose: 5 mg Aspirin (Asa -) 81 mg PO DAILY [facility] Last Admin: 09/21/17 09:19 Dose: 81 mg Heparin Sodium (Porcine) (Heparin -) 5,000 unit SQ BID [facility] Last Admin: 09/21/17 09:19 Dose: 5,000 unit Hydrochlorothiazide (Hctz -) 12.5 mg PO DAILY [facility] Last Admin: 09/21/17 09:19 Dose: 12.5 mg Vancomycin HCl 1,250 mg/ (Dextrose) 250 mls @ 166.667 mls/hr IVPB DAILY@2200 [facility] PRN Reason: Protocol Last Admin: 09/20/17 21:46 Dose: 166.667 mls/hr Piperacillin/Tazobactam/Dextrose (Zosyn 3.375gm Ivpb (Premix)) 50 mls @ 100 mls /hr IVPB Q8H-IV [facility] PRN Reason: Protocol Last Admin: 09/21/17 17:18 Dose: 100 mls/hr Insulin Aspart (Novolog Vial Sliding Scale -) 1 vial SQ ACHS [facility] PRN Reason: Protocol Last Admin: 09/21/17 17:31 Dose: Not Given Mesalamine (Asacol Hd -) 800 mg PO TID [facility] Last Admin: 09/21/17 14:20 Dose: 800 mg Metformin HCl (Glucophage -) 500 mg PO DAILY@0700 [facility] Last Admin: 09/21/17 06:15 Dose: 500 mg Oxybutynin Chloride (Ditropan -) 5 mg PO BID [facility] Last Admin: 09/21/17 09:19 Dose: 5 mg Pantoprazole Sodium (Protonix -) 40 mg PO DAILY [facility] Last Admin: 09/21/17 09:19 Dose: 40 mg Sitagliptin Phosphate (Januvia -) 50 mg PO DAILY@0700 [facility] Last Admin: 09/21/17 06:16 Dose: 50 mg - Objective Vital Signs: Vital Signs Temperature 98.2 F 09/21/17 18:00 Pulse Rate 74 09/21/17 18:00 Respiratory Rate 20 09/21/17 18:00 Blood Pressure 135/68 09/21/17 18:00 O2 Sat by Pulse Oximetry (%) 95 09/21/17 09:00 Constitutional: Yes: No Distress HENT: Yes: Atraumatic Neck: Yes: Supple Cardiovascular: Yes: Regular Rate and Rhythm Respiratory: Yes: CTA Bilaterally Extremities: Yes: Other (R FOOT SWOLLEN) Neurological: Yes: Alert, Oriented Labs: CBC, BMP 09/21/17 06:00 09/21/17 06:00 INR, PTT INR 1.08 (0.82-1.09) 09/18/17 20:30 Problem List - Problems (1) Diabetes Assessment/Plan: insulin bgms Code(s): E11.9 - TYPE 2 DIABETES MELLITUS WITHOUT COMPLICATIONS Qualifiers: Diabetes mellitus type: type 2 Diabetes mellitus complication status: with other specified complication Diabetes mellitus long-term insulin use: without extermination supervisor use Qualified Code(s): E11.69 - Type 2 diabetes mellitus with other specified complication; E11.69 - Type 2 diabetes mellitus with other specified complication; E11.69 - Type 2 diabetes mellitus with other specified complication; E11.69 - Type 2 diabetes mellitus with other specified complication; Z79.4 - watermaster (current) use of insulin; Z79.4 - watermaster ( current) use of insulin; Z79.4 - group home (current) use of insulin; Z79.4 - group home (current) use of insulin (2) Puncture wound of foot without foreign body Assessment/Plan: iv abx id and ortho NEED TO FOLLOW UP Code(s): S91.339A - PUNCTURE WOUND WITHOUT FOREIGN BODY, UNSP FOOT, INIT ENCNTR Qualifiers: Encounter type: initial encounter Laterality: right Qualified Code( s): S91.331A - Puncture wound without foreign body, right foot, initial encounter; S91.331A - Puncture wound without foreign body, right foot, initial encounter (3) Cellulitis and abscess of foot Code(s): L03.119 - CELLULITIS OF UNSPECIFIED PART OF LIMB L02.619 - CUTANEOUS ABSCESS OF UNSPECIFIED FOOT
[2017-09-21] MEDS: VANCOMYCIN 1,250 MG in DEXTROSE 5%-WATER - 250 ML IVPB SCH (21:51)
[2017-09-22] MEDS: PIPERACILLIN/TAZOB 3.375 GM 50 ML IVPB SCH ×3 (01:08→16:59)
[2017-09-22] MEDS: MESALAMINE 800 MG TABLET.DR PO SCH ×3 (06:20→21:15)
[2017-09-22] MEDS: sitaGLIPtin PHOSPHATE 50 MG TABLET PO SCH (06:21)
[2017-09-22] MEDS: metFORMIN HCL 500 MG TABLET (FP) PO SCH (06:21)
[2017-09-22] MEDS: INSULIN SLIDING SCALE (NOVOLOG) 1 VIAL SQ SCH ×4 (06:22→21:15)
[2017-09-22] MEDS: PANTOPRAZOLE 40 MG TABLET (FP) PO SCH (10:01)
[2017-09-22] MEDS: OXYBUTYNIN CHLORIDE 5 MG TABLET PO SCH ×2 (10:01→21:14)
[2017-09-22] MEDS: HEPARIN NA (PORCINE) 5,000 UNITS/ML 1ML VIAL SQ SCH ×2 (10:01→21:14)
[2017-09-22] MEDS: ASPIRIN 81 MG CHEWABLE TABLETS PO SCH (10:01)
[2017-09-22] MEDS: amLODIPine BESYLATE 5 MG TABLET (FP) PO SCH (10:01)
[2017-09-22] MEDS: HYDROCHLOROTHIAZIDE 12.5 MG CAPSULE (FP) PO SCH (10:01)
[2017-09-22] MEDS ORDERED: INSULIN (NOVOLOG) ASPART 100 UNITS/ML 10ML VIAL ONE (11:25)
[2017-09-22] MEDS: ACETAMINOPHEN 325 MG TABLET (FP) PO PRN ×2 (11:35→22:08)
--- NOTE | 2017-09-22 12:21 | PN ---
Progress Note (short form) - Note Progress Note: Ortho Pt seen and examined s/p puncture wound right foot- abscess has formed Selected Entries 09/22/17 05:24 Temperature 98.6 F Pulse Rate 80 Respiratory 20 Rate Blood Pressure 146/77 Laboratory Tests 09/21/17 06:00 WBC 7.2 Hgb 9.6 L Hct 28.2 L Plt Count 224 + swelling, + erythema,+ abscess on bottom of foot + ttp nvi a/p Will need I & D Podiatry consulted Keep NPO d/w Dr. Pryor
[2017-09-22] MEDS ORDERED: LIDOCAINE HCL 1%, 10 MG/ML (20ML VIAL) ONE (13:49)
--- NOTE | 2017-09-22 14:13 | PN ---
Progress Note (short form) - Note Progress Note: Ortho Pt seen and examined s/p puncture wound right foot- abscess has formed- seen with Dr. Pryor a/p Will need I & D Consent obtained, local administered, Under sterile technique right foot was I&D cultures sent Podiatry consult will follow
[2017-09-22] MEDS ORDERED: oxyCODONE HCL 5 MG TABLET PO PRN (14:14)
[2017-09-22] MEDS ORDERED: LIDOCAINE HCL 1%, 10 MG/ML (20ML VIAL) NR ONE (14:15)
--- NOTE | 2017-09-22 14:23 | PN ---
Progress Note, Physician History of Present Illness: no complaints - Current Medication List Current Medications: Active Medications Acetaminophen (Tylenol -) 650 mg PO Q6H PRN PRN Reason: FEVER OR PAIN Last Admin: 09/22/17 11:35 Dose: 650 mg Amlodipine Besylate (Norvasc -) 5 mg PO DAILY [facility] Last Admin: 09/22/17 10:01 Dose: 5 mg Aspirin (Asa -) 81 mg PO DAILY [facility] Last Admin: 09/22/17 10:01 Dose: 81 mg Heparin Sodium (Porcine) (Heparin -) 5,000 unit SQ BID [facility] Last Admin: 09/22/17 10:01 Dose: 5,000 unit Hydrochlorothiazide (Hctz -) 12.5 mg PO DAILY [facility] Last Admin: 09/22/17 10:01 Dose: 12.5 mg Vancomycin HCl 1,250 mg/ (Dextrose) 250 mls @ 166.667 mls/hr IVPB DAILY@2200 [facility] PRN Reason: Protocol Last Admin: 09/21/17 21:51 Dose: 166.667 mls/hr Piperacillin/Tazobactam/Dextrose (Zosyn 3.375gm Ivpb (Premix)) 50 mls @ 100 mls /hr IVPB Q8H-IV [facility] PRN Reason: Protocol Last Admin: 09/22/17 10:03 Dose: 100 mls/hr Insulin Aspart (Novolog Vial Sliding Scale -) 1 vial SQ ACHS [facility] PRN Reason: Protocol Last Admin: 09/22/17 11:27 Dose: 2 units Lidocaine HCl (Xylocaine 1%) 10 ml SQ ONCE ONE Stop: 09/22/17 14:16 Mesalamine (Asacol Hd -) 800 mg PO TID [facility] Last Admin: 09/22/17 06:20 Dose: 800 mg Metformin HCl (Glucophage -) 500 mg PO DAILY@0700 [facility] Last Admin: 09/22/17 06:21 Dose: 500 mg Oxybutynin Chloride (Ditropan -) 5 mg PO BID [facility] Last Admin: 09/22/17 10:01 Dose: 5 mg Oxycodone HCl (Roxicodone -) 5 mg PO Q4H PRN PRN Reason: PAIN LEVEL 6-10 Pantoprazole Sodium (Protonix -) 40 mg PO DAILY [facility] Last Admin: 09/22/17 10:01 Dose: 40 mg Sitagliptin Phosphate (Januvia -) 50 mg PO DAILY@0700 [facility] Last Admin: 09/22/17 06:21 Dose: 50 mg - Objective Vital Signs: Vital Signs Temperature 98.2 F 09/22/17 13:58 Pulse Rate 80 09/22/17 13:58 Respiratory Rate 20 09/22/17 13:58 Blood Pressure 132/64 09/22/17 13:58 O2 Sat by Pulse Oximetry (%) 96 09/21/17 21:00 Constitutional: Yes: No Distress HENT: Yes: Atraumatic Neck: Yes: Supple Cardiovascular: Yes: Regular Rate and Rhythm Respiratory: Yes: CTA Bilaterally Gastrointestinal: Yes: Normal Bowel Sounds Extremities: Yes: Other (r foot swollen, cellulitis) Edema: Yes Edema: RLE: Trace (r foot) Neurological: Yes: Alert, Oriented Labs: CBC, BMP 09/21/17 06:00 09/21/17 06:00 INR, PTT INR 1.08 (0.82-1.09) 09/18/17 20:30 Problem List - Problems (1) Diabetes Assessment/Plan: insulin, oral hypoglycemics bgms Code(s): E11.9 - TYPE 2 DIABETES MELLITUS WITHOUT COMPLICATIONS Qualifiers: Diabetes mellitus type: type 2 Diabetes mellitus complication status: with other specified complication Diabetes mellitus predatory animal exterminator insulin use: without usp use Qualified Code(s): E11.69 - Type 2 diabetes mellitus with other specified complication; E11.69 - Type 2 diabetes mellitus with other specified complication; E11.69 - Type 2 diabetes mellitus with other specified complication; E11.69 - Type 2 diabetes mellitus with other specified complication; Z79.4 - predatory animal exterminator (current) use of insulin; Z79.4 - nursing home ( current) use of insulin; Z79.4 - nursing home (current) use of insulin; Z79.4 - nursing home (current) use of insulin (2) Puncture wound of foot without foreign body Assessment/Plan: iv abx for i and d podiatry consult ordered Code(s): S91.339A - PUNCTURE WOUND WITHOUT FOREIGN BODY, UNSP FOOT, INIT ENCNTR Qualifiers: Encounter type: initial encounter Laterality: right Qualified Code( s): S91.331A - Puncture wound without foreign body, right foot, initial encounter; S91.331A - Puncture wound without foreign body, right foot, initial encounter (3) Cellulitis and abscess of foot Assessment/Plan: on abx Code(s): L03.119 - CELLULITIS OF UNSPECIFIED PART OF LIMB L02.619 - CUTANEOUS ABSCESS OF UNSPECIFIED FOOT
--- NOTE | 2017-09-22 14:24 | PN ---
Progress Note, Physician History of Present Illness: stable i and d done no issues dsg in place - Current Medication List Current Medications: Active Medications Acetaminophen (Tylenol -) 650 mg PO Q6H PRN PRN Reason: FEVER OR PAIN Last Admin: 09/22/17 11:35 Dose: 650 mg Amlodipine Besylate (Norvasc -) 5 mg PO DAILY [facility] Last Admin: 09/22/17 10:01 Dose: 5 mg Aspirin (Asa -) 81 mg PO DAILY [facility] Last Admin: 09/22/17 10:01 Dose: 81 mg Heparin Sodium (Porcine) (Heparin -) 5,000 unit SQ BID [facility] Last Admin: 09/22/17 10:01 Dose: 5,000 unit Hydrochlorothiazide (Hctz -) 12.5 mg PO DAILY [facility] Last Admin: 09/22/17 10:01 Dose: 12.5 mg Piperacillin/Tazobactam/Dextrose (Zosyn 3.375gm Ivpb (Premix)) 50 mls @ 100 mls /hr IVPB Q8H-IV [facility] PRN Reason: Protocol Last Admin: 09/22/17 10:03 Dose: 100 mls/hr Insulin Aspart (Novolog Vial Sliding Scale -) 1 vial SQ ACHS [facility] PRN Reason: Protocol Last Admin: 09/22/17 11:27 Dose: 2 units Lidocaine HCl (Xylocaine 1%) 10 ml SQ ONCE ONE Stop: 09/22/17 14:16 Mesalamine (Asacol Hd -) 800 mg PO TID [facility] Last Admin: 09/22/17 06:20 Dose: 800 mg Metformin HCl (Glucophage -) 500 mg PO DAILY@0700 [facility] Last Admin: 09/22/17 06:21 Dose: 500 mg Oxybutynin Chloride (Ditropan -) 5 mg PO BID [facility] Last Admin: 09/22/17 10:01 Dose: 5 mg Oxycodone HCl (Roxicodone -) 5 mg PO Q4H PRN PRN Reason: PAIN LEVEL 6-10 Pantoprazole Sodium (Protonix -) 40 mg PO DAILY [facility] Last Admin: 09/22/17 10:01 Dose: 40 mg Sitagliptin Phosphate (Januvia -) 50 mg PO DAILY@0700 [facility] Last Admin: 09/22/17 06:21 Dose: 50 mg - Objective Vital Signs: Vital Signs Temperature 98.2 F 09/22/17 13:58 Pulse Rate 80 09/22/17 13:58 Respiratory Rate 20 09/22/17 13:58 Blood Pressure 132/64 09/22/17 13:58 O2 Sat by Pulse Oximetry (%) 96 09/21/17 21:00 Constitutional: Yes: No Distress, Calm Cardiovascular: Yes: Regular Rate and Rhythm Respiratory: Yes: Regular, CTA Bilaterally Gastrointestinal: Yes: Normal Bowel Sounds, Soft Musculoskeletal: Yes: WNL Extremities: Yes: Other Wound/Incision: Yes: Dressing Dry and Intact, Other (i and d done) Neurological: Yes: Alert, Oriented Psychiatric: Yes: Alert, Oriented Labs: CBC, BMP 09/21/17 06:00 09/21/17 06:00 INR, PTT INR 1.08 (0.82-1.09) 09/18/17 20:30 Assessment/Plan history noted,also noticed streaking of the leg and swelling and tenderness Problem List - Problems (1) Diabetes Code(s): E11.9 - TYPE 2 DIABETES MELLITUS WITHOUT COMPLICATIONS Qualifiers: Diabetes mellitus type: type 2 Diabetes mellitus complication status: with other specified complication Diabetes mellitus regional intermodal truck driver insulin use: without skilled nursing use Qualified Code(s): E11.69 - Type 2 diabetes mellitus with other specified complication; E11.69 - Type 2 diabetes mellitus with other specified complication; E11.69 - Type 2 diabetes mellitus with other specified complication; E11.69 - Type 2 diabetes mellitus with other specified complication; Z79.4 - rodent exterminator (current) use of insulin; Z79.4 - [facility] ( current) use of insulin; Z79.4 - [facility] (current) use of insulin; Z79.4 - [facility] (current) use of insulin (2) Puncture wound of foot without foreign body Code(s): S91.339A - PUNCTURE WOUND WITHOUT FOREIGN BODY, UNSP FOOT, INIT ENCNTR Qualifiers: Encounter type: initial encounter Laterality: right Qualified Code( s): S91.331A - Puncture wound without foreign body, right foot, initial encounter; S91.331A - Puncture wound without foreign body, right foot, initial encounter (3) Cellulitis and abscess of foot Code(s): L03.119 - CELLULITIS OF UNSPECIFIED PART OF LIMB L02.619 - CUTANEOUS ABSCESS OF UNSPECIFIED FOOT punctuate wound plan continue abx follow the cellulitits await for cx rest as per primary team
--- NOTE | 2017-09-22 16:01 | CONS ---
DATE OF CONSULTATION: 09/22/2017 ORTHOPEDIC CONSULTATION HISTORY OF PRESENT ILLNESS: Patient is a 67-year-old female who has been in the hospital the past few days status post stepping on a nail. She was placed on IV antibiotics and was getting better, however, today she got worse, and the foot looked more erythematous with an area of what appeared to be some fluctuance on the plantar surface of the foot near the puncture wound. No streaking. No lymphadenopathy. Otherwise, good range of motion in her ankle and her toes. As patient was going in the wrong direction with the obvious area of fluctuance, I consented the patient for a bedside incision and drainage via traffic coordinator, the nurse on the floor. PROCEDURE: Patient's foot was prepped with One Step Prep. The area was infiltrated with 1% lidocaine plain. A small 1-inch stab incision over the maximum fluctuance was performed in the plantar aspect of the foot. Culture stick was applied and sent. The wound was opened with a clamp in all directions to allow egress of all fluid. It was irrigated with irrigation on the floor and then was packed with Iodoform bandage and a sterile dressing. The patient tolerated the bedside procedure well and I will follow the patient on the floor. Podiatry consult has been called as well. DANIA MANCUSO M.D. [id number]
[2017-09-22] MEDS ORDERED: PT OWN MED DRAWER 7, Y5N ONE ×2 (16:50→20:09)
[2017-09-23] MEDS: PIPERACILLIN/TAZOB 3.375 GM 50 ML IVPB SCH ×3 (02:17→17:24)
[2017-09-23] MEDS ORDERED: PT OWN MED DRAWER 7, Y5N ONE ×2 (05:34→19:58)
[2017-09-23] MEDS: INSULIN SLIDING SCALE (NOVOLOG) 1 VIAL SQ SCH ×4 (06:19→22:42)
[2017-09-23] MEDS: MESALAMINE 800 MG TABLET.DR PO SCH ×3 (06:20→22:42)
[2017-09-23] MEDS: metFORMIN HCL 500 MG TABLET (FP) PO SCH (06:20)
[2017-09-23] MEDS: sitaGLIPtin PHOSPHATE 50 MG TABLET PO SCH (06:20)
[2017-09-23] MEDS: HEPARIN NA (PORCINE) 5,000 UNITS/ML 1ML VIAL SQ SCH ×2 (10:14→22:42)
[2017-09-23] MEDS: PANTOPRAZOLE 40 MG TABLET (FP) PO SCH (10:15)
[2017-09-23] MEDS: HYDROCHLOROTHIAZIDE 12.5 MG CAPSULE (FP) PO SCH (10:15)
[2017-09-23] MEDS: ASPIRIN 81 MG CHEWABLE TABLETS PO SCH (10:15)
[2017-09-23] MEDS: ACETAMINOPHEN 325 MG TABLET (FP) PO PRN (10:15)
[2017-09-23] MEDS: amLODIPine BESYLATE 5 MG TABLET (FP) PO SCH (10:15)
[2017-09-23] MEDS: OXYBUTYNIN CHLORIDE 5 MG TABLET PO SCH ×2 (10:15→22:42)
[2017-09-23] MEDS ORDERED: INSULIN (NOVOLOG) ASPART 100 UNITS/ML 10ML VIAL ONE (11:45)
--- NOTE | 2017-09-23 15:09 | PN ---
Progress Note, Physician History of Present Illness: Pt seen and examined. Chart reviewed, events noted. Pt with Rt foot cellulitis/ abscess due to puncture by nail. She states she has sharp pain during nighttime occasionally but pain has decreased, denies chills. Has no specific complaints. - Current Medication List Current Medications: Active Medications Acetaminophen (Tylenol -) 650 mg PO Q6H PRN PRN Reason: FEVER OR PAIN Last Admin: 09/23/17 10:15 Dose: 650 mg Amlodipine Besylate (Norvasc -) 5 mg PO DAILY [facility] Last Admin: 09/23/17 10:15 Dose: 5 mg Aspirin (Asa -) 81 mg PO DAILY [facility] Last Admin: 09/23/17 10:15 Dose: 81 mg Heparin Sodium (Porcine) (Heparin -) 5,000 unit SQ BID [facility] Last Admin: 09/23/17 10:14 Dose: 5,000 unit Hydrochlorothiazide (Hctz -) 12.5 mg PO DAILY [facility] Last Admin: 09/23/17 10:15 Dose: 12.5 mg Piperacillin/Tazobactam/Dextrose (Zosyn 3.375gm Ivpb (Premix)) 50 mls @ 100 mls /hr IVPB Q8H-IV [facility] PRN Reason: Protocol Last Admin: 09/23/17 10:17 Dose: 100 mls/hr Insulin Aspart (Novolog Vial Sliding Scale -) 1 vial SQ ACHS [facility] PRN Reason: Protocol Last Admin: 09/23/17 11:46 Dose: 4 units Mesalamine (Asacol Hd -) 800 mg PO TID [facility] Last Admin: 09/23/17 13:54 Dose: 800 mg Metformin HCl (Glucophage -) 500 mg PO DAILY@0700 [facility] Last Admin: 09/23/17 06:20 Dose: 500 mg Oxybutynin Chloride (Ditropan -) 5 mg PO BID [facility] Last Admin: 09/23/17 10:15 Dose: 5 mg Oxycodone HCl (Roxicodone -) 5 mg PO Q4H PRN PRN Reason: PAIN LEVEL 6-10 Last Admin: 09/22/17 16:43 Dose: 5 mg Pantoprazole Sodium (Protonix -) 40 mg PO DAILY [facility] Last Admin: 09/23/17 10:15 Dose: 40 mg Sitagliptin Phosphate (Januvia -) 50 mg PO DAILY@0700 [facility] Last Admin: 09/23/17 06:20 Dose: 50 mg - Objective Vital Signs: Vital Signs Temperature 98.3 F 09/23/17 11:00 Pulse Rate 85 09/23/17 11:00 Respiratory Rate 18 09/23/17 11:00 Blood Pressure 114/72 09/23/17 11:00 O2 Sat by Pulse Oximetry (%) 100 09/23/17 09:00 Constitutional: Yes: No Distress, Calm Cardiovascular: Yes: Regular Rate and Rhythm Respiratory: Yes: CTA Bilaterally Gastrointestinal: Yes: Normal Bowel Sounds, Soft Extremities: Yes: Other (Rt foot edema/warmth, dressing intact, plantar wound site clean) Wound/Incision: Yes: Dressing Dry and Intact Labs: CBC, BMP 09/21/17 06:00 09/21/17 06:00 INR, PTT INR 1.08 (0.82-1.09) 09/18/17 20:30 Microbiology 09/18/17 20:30 Blood - Peripheral Venous Blood Culture - Preliminary NO GROWTH OBTAINED AFTER 96 HOURS, INCUBATION TO CONTINUE FOR 1 DAYS. 09/18/17 20:30 Blood - Peripheral Venous Blood Culture - Preliminary NO GROWTH OBTAINED AFTER 96 HOURS, INCUBATION TO CONTINUE FOR 1 DAYS. Problem List - Problems (1) Cellulitis and abscess of foot Code(s): L03.119 - CELLULITIS OF UNSPECIFIED PART OF LIMB L02.619 - CUTANEOUS ABSCESS OF UNSPECIFIED FOOT (2) Diabetes Code(s): E11.9 - TYPE 2 DIABETES MELLITUS WITHOUT COMPLICATIONS Qualifiers: Diabetes mellitus type: type 2 Diabetes mellitus complication status: with other specified complication Diabetes mellitus detention insulin use: without cyber systems engineer use Qualified Code(s): E11.69 - Type 2 diabetes mellitus with other specified complication; E11.69 - Type 2 diabetes mellitus with other specified complication; E11.69 - Type 2 diabetes mellitus with other specified complication; E11.69 - Type 2 diabetes mellitus with other specified complication; Z79.4 - assisted (current) use of insulin; Z79.4 - butane compressor operator ( current) use of insulin; Z79.4 - assisted (current) use of insulin; Z79.4 - assisted (current) use of insulin (3) Puncture wound of foot without foreign body Code(s): S91.339A - PUNCTURE WOUND WITHOUT FOREIGN BODY, UNSP FOOT, INIT ENCNTR Qualifiers: Encounter type: initial encounter Laterality: right Qualified Code( s): S91.331A - Puncture wound without foreign body, right foot, initial encounter; S91.331A - Puncture wound without foreign body, right foot, initial encounter Assessment/Plan Rt foot s/p I+D - continue current antibiotic - f/u fluid culture - blood cultures no growth thus far continue monitor
--- NOTE | 2017-09-23 17:05 | PN ---
Progress Note, Physician History of Present Illness: no complaints - Current Medication List Current Medications: Active Medications Acetaminophen (Tylenol -) 650 mg PO Q6H PRN PRN Reason: FEVER OR PAIN Last Admin: 09/23/17 10:15 Dose: 650 mg Amlodipine Besylate (Norvasc -) 5 mg PO DAILY [facility] Last Admin: 09/23/17 10:15 Dose: 5 mg Aspirin (Asa -) 81 mg PO DAILY [facility] Last Admin: 09/23/17 10:15 Dose: 81 mg Heparin Sodium (Porcine) (Heparin -) 5,000 unit SQ BID [facility] Last Admin: 09/23/17 10:14 Dose: 5,000 unit Hydrochlorothiazide (Hctz -) 12.5 mg PO DAILY [facility] Last Admin: 09/23/17 10:15 Dose: 12.5 mg Piperacillin/Tazobactam/Dextrose (Zosyn 3.375gm Ivpb (Premix)) 50 mls @ 100 mls /hr IVPB Q8H-IV [facility] PRN Reason: Protocol Last Admin: 09/23/17 10:17 Dose: 100 mls/hr Insulin Aspart (Novolog Vial Sliding Scale -) 1 vial SQ ACHS [facility] PRN Reason: Protocol Last Admin: 09/23/17 11:46 Dose: 4 units Mesalamine (Asacol Hd -) 800 mg PO TID [facility] Last Admin: 09/23/17 13:54 Dose: 800 mg Metformin HCl (Glucophage -) 500 mg PO DAILY@0700 [facility] Last Admin: 09/23/17 06:20 Dose: 500 mg Oxybutynin Chloride (Ditropan -) 5 mg PO BID [facility] Last Admin: 09/23/17 10:15 Dose: 5 mg Oxycodone HCl (Roxicodone -) 5 mg PO Q4H PRN PRN Reason: PAIN LEVEL 6-10 Last Admin: 09/22/17 16:43 Dose: 5 mg Pantoprazole Sodium (Protonix -) 40 mg PO DAILY [facility] Last Admin: 09/23/17 10:15 Dose: 40 mg Sitagliptin Phosphate (Januvia -) 50 mg PO DAILY@0700 [facility] Last Admin: 09/23/17 06:20 Dose: 50 mg - Objective Vital Signs: Vital Signs Temperature 98.3 F 09/23/17 15:05 Pulse Rate 73 09/23/17 15:05 Respiratory Rate 18 09/23/17 15:05 Blood Pressure 132/59 09/23/17 15:05 O2 Sat by Pulse Oximetry (%) 100 09/23/17 09:00 Constitutional: Yes: No Distress HENT: Yes: Atraumatic Neck: Yes: Supple Cardiovascular: Yes: Regular Rate and Rhythm Respiratory: Yes: CTA Bilaterally Gastrointestinal: Yes: Normal Bowel Sounds Extremities: Yes: Other (R FOOT IN DRESSING S/P 1 AND D) Neurological: Yes: Alert, Oriented Labs: CBC, BMP 09/21/17 06:00 09/21/17 06:00 INR, PTT INR 1.08 (0.82-1.09) 09/18/17 20:30 Problem List - Problems (1) Diabetes Assessment/Plan: insulin, oral hypoglycemics bgms Code(s): E11.9 - TYPE 2 DIABETES MELLITUS WITHOUT COMPLICATIONS Qualifiers: Diabetes mellitus type: type 2 Diabetes mellitus complication status: with other specified complication Diabetes mellitus marine oil terminal superintendent insulin use: without marine oil terminal superintendent use Qualified Code(s): E11.69 - Type 2 diabetes mellitus with other specified complication; E11.69 - Type 2 diabetes mellitus with other specified complication; E11.69 - Type 2 diabetes mellitus with other specified complication; E11.69 - Type 2 diabetes mellitus with other specified complication; Z79.4 - watermaster (current) use of insulin; Z79.4 - watermaster ( current) use of insulin; Z79.4 - [facility] (current) use of insulin; Z79.4 - [facility] (current) use of insulin (2) Puncture wound of foot without foreign body Assessment/Plan: iv abx S/P i and d wound care and dressing change Code(s): S91.339A - PUNCTURE WOUND WITHOUT FOREIGN BODY, UNSP FOOT, INIT ENCNTR Qualifiers: Encounter type: initial encounter Laterality: right Qualified Code( s): S91.331A - Puncture wound without foreign body, right foot, initial encounter; S91.331A - Puncture wound without foreign body, right foot, initial encounter (3) Cellulitis and abscess of foot Code(s): L03.119 - CELLULITIS OF UNSPECIFIED PART OF LIMB L02.619 - CUTANEOUS ABSCESS OF UNSPECIFIED FOOT
--- NOTE | 2017-09-23 20:05 | PN ---
Progress Note (short form) - Note Progress Note: MUCH IMPROVED DECREASED SWELLING AND REDNESS PLAN: CONTINUE ABX, CHANGE PACKING DAILY
[2017-09-24] MEDS: PIPERACILLIN/TAZOB 3.375 GM 50 ML IVPB SCH ×3 (01:52→17:33)
[2017-09-24] MEDS: sitaGLIPtin PHOSPHATE 50 MG TABLET PO SCH (06:06)
[2017-09-24] MEDS: INSULIN SLIDING SCALE (NOVOLOG) 1 VIAL SQ SCH ×4 (06:06→21:56)
[2017-09-24] MEDS: MESALAMINE 800 MG TABLET.DR PO SCH ×3 (06:06→21:51)
[2017-09-24] MEDS: metFORMIN HCL 500 MG TABLET (FP) PO SCH (06:06)
[2017-09-24] MEDS: ASPIRIN 81 MG CHEWABLE TABLETS PO SCH (10:14)
[2017-09-24] MEDS: OXYBUTYNIN CHLORIDE 5 MG TABLET PO SCH ×2 (10:14→21:51)
[2017-09-24] MEDS: PANTOPRAZOLE 40 MG TABLET (FP) PO SCH (10:14)
[2017-09-24] MEDS: HEPARIN NA (PORCINE) 5,000 UNITS/ML 1ML VIAL SQ SCH ×2 (10:14→21:51)
[2017-09-24] MEDS: amLODIPine BESYLATE 5 MG TABLET (FP) PO SCH (10:14)
[2017-09-24] MEDS: HYDROCHLOROTHIAZIDE 12.5 MG CAPSULE (FP) PO SCH (10:14)
--- NOTE | 2017-09-24 15:17 | PN ---
Progress Note, Physician History of Present Illness: no complaints - Current Medication List Current Medications: Active Medications Acetaminophen (Tylenol -) 650 mg PO Q6H PRN PRN Reason: FEVER OR PAIN Last Admin: 09/23/17 10:15 Dose: 650 mg Amlodipine Besylate (Norvasc -) 5 mg PO DAILY [facility] Last Admin: 09/24/17 10:14 Dose: 5 mg Aspirin (Asa -) 81 mg PO DAILY [facility] Last Admin: 09/24/17 10:14 Dose: 81 mg Heparin Sodium (Porcine) (Heparin -) 5,000 unit SQ BID [facility] Last Admin: 09/24/17 10:14 Dose: 5,000 unit Hydrochlorothiazide (Hctz -) 12.5 mg PO DAILY [facility] Last Admin: 09/24/17 10:14 Dose: 12.5 mg Piperacillin/Tazobactam/Dextrose (Zosyn 3.375gm Ivpb (Premix)) 50 mls @ 100 mls /hr IVPB Q8H-IV [facility] PRN Reason: Protocol Last Admin: 09/24/17 10:14 Dose: 100 mls/hr Insulin Aspart (Novolog Vial Sliding Scale -) 1 vial SQ ACHS [facility] PRN Reason: Protocol Last Admin: 09/24/17 12:15 Dose: 4 units Mesalamine (Asacol Hd -) 800 mg PO TID [facility] Last Admin: 09/24/17 14:51 Dose: 800 mg Metformin HCl (Glucophage -) 500 mg PO DAILY@0700 [facility] Last Admin: 09/24/17 06:06 Dose: 500 mg Oxybutynin Chloride (Ditropan -) 5 mg PO BID [facility] Last Admin: 09/24/17 10:14 Dose: 5 mg Oxycodone HCl (Roxicodone -) 5 mg PO Q4H PRN PRN Reason: PAIN LEVEL 6-10 Last Admin: 09/22/17 16:43 Dose: 5 mg Pantoprazole Sodium (Protonix -) 40 mg PO DAILY [facility] Last Admin: 09/24/17 10:14 Dose: 40 mg Sitagliptin Phosphate (Januvia -) 50 mg PO DAILY@0700 [facility] Last Admin: 09/24/17 06:06 Dose: 50 mg - Objective Vital Signs: Vital Signs Temperature 98.4 F 09/24/17 14:52 Pulse Rate 82 09/24/17 14:52 Respiratory Rate 18 09/24/17 14:52 Blood Pressure 130/58 09/24/17 14:52 O2 Sat by Pulse Oximetry (%) 97 09/23/17 21:00 Constitutional: Yes: No Distress HENT: Yes: Atraumatic Neck: Yes: Supple Cardiovascular: Yes: Regular Rate and Rhythm Respiratory: Yes: CTA Bilaterally Gastrointestinal: Yes: Normal Bowel Sounds Extremities: Yes: Other (R FOOT IN DRESSING TOES WARM MOVING ALL TOES) Neurological: Yes: Alert, Oriented Labs: CBC, BMP 09/21/17 06:00 09/21/17 06:00 INR, PTT INR 1.08 (0.82-1.09) 09/18/17 20:30 Problem List - Problems (1) Diabetes Assessment/Plan: insulin, oral hypoglycemics bgms Code(s): E11.9 - TYPE 2 DIABETES MELLITUS WITHOUT COMPLICATIONS Qualifiers: Diabetes mellitus type: type 2 Diabetes mellitus complication status: with other specified complication Diabetes mellitus long term care administrator insulin use: without long term care administrator use Qualified Code(s): E11.69 - Type 2 diabetes mellitus with other specified complication; E11.69 - Type 2 diabetes mellitus with other specified complication; E11.69 - Type 2 diabetes mellitus with other specified complication; E11.69 - Type 2 diabetes mellitus with other specified complication; Z79.4 - [facility] (current) use of insulin; Z79.4 - [facility] ( current) use of insulin; Z79.4 - [facility] (current) use of insulin; Z79.4 - continuous churn buttermaker (current) use of insulin (2) Puncture wound of foot without foreign body Assessment/Plan: iv abx S/P i and d wound care and dressing change Code(s): S91.339A - PUNCTURE WOUND WITHOUT FOREIGN BODY, UNSP FOOT, INIT ENCNTR Qualifiers: Encounter type: initial encounter Laterality: right Qualified Code( s): S91.331A - Puncture wound without foreign body, right foot, initial encounter; S91.331A - Puncture wound without foreign body, right foot, initial encounter (3) Cellulitis and abscess of foot Assessment/Plan: on abx Code(s): L03.119 - CELLULITIS OF UNSPECIFIED PART OF LIMB L02.619 - CUTANEOUS ABSCESS OF UNSPECIFIED FOOT
--- NOTE | 2017-09-24 17:41 | PN ---
Progress Note, Physician History of Present Illness: Pt seen and examined. States she feels well, denies pain. Remains afebrile. Has no specific complaints. - Current Medication List Current Medications: Active Medications Acetaminophen (Tylenol -) 650 mg PO Q6H PRN PRN Reason: FEVER OR PAIN Last Admin: 09/23/17 10:15 Dose: 650 mg Amlodipine Besylate (Norvasc -) 5 mg PO DAILY [facility] Last Admin: 09/24/17 10:14 Dose: 5 mg Aspirin (Asa -) 81 mg PO DAILY [facility] Last Admin: 09/24/17 10:14 Dose: 81 mg Heparin Sodium (Porcine) (Heparin -) 5,000 unit SQ BID [facility] Last Admin: 09/24/17 10:14 Dose: 5,000 unit Hydrochlorothiazide (Hctz -) 12.5 mg PO DAILY [facility] Last Admin: 09/24/17 10:14 Dose: 12.5 mg Piperacillin/Tazobactam/Dextrose (Zosyn 3.375gm Ivpb (Premix)) 50 mls @ 100 mls /hr IVPB Q8H-IV [facility] PRN Reason: Protocol Last Admin: 09/24/17 17:33 Dose: 100 mls/hr Insulin Aspart (Novolog Vial Sliding Scale -) 1 vial SQ ACHS [facility] PRN Reason: Protocol Last Admin: 09/24/17 17:33 Dose: 6 units Mesalamine (Asacol Hd -) 800 mg PO TID [facility] Last Admin: 09/24/17 14:51 Dose: 800 mg Metformin HCl (Glucophage -) 500 mg PO DAILY@0700 [facility] Last Admin: 09/24/17 06:06 Dose: 500 mg Oxybutynin Chloride (Ditropan -) 5 mg PO BID [facility] Last Admin: 09/24/17 10:14 Dose: 5 mg Oxycodone HCl (Roxicodone -) 5 mg PO Q4H PRN PRN Reason: PAIN LEVEL 6-10 Last Admin: 09/22/17 16:43 Dose: 5 mg Pantoprazole Sodium (Protonix -) 40 mg PO DAILY [facility] Last Admin: 09/24/17 10:14 Dose: 40 mg Sitagliptin Phosphate (Januvia -) 50 mg PO DAILY@0700 [facility] Last Admin: 09/24/17 06:06 Dose: 50 mg - Objective Vital Signs: Vital Signs Temperature 98.4 F 09/24/17 14:52 Pulse Rate 82 09/24/17 14:52 Respiratory Rate 18 09/24/17 14:52 Blood Pressure 130/58 09/24/17 14:52 O2 Sat by Pulse Oximetry (%) 97 09/23/17 21:00 Constitutional: Yes: No Distress, Calm Neck: Yes: WNL Cardiovascular: Yes: Regular Rate and Rhythm Respiratory: Yes: CTA Bilaterally Gastrointestinal: Yes: Normal Bowel Sounds, Soft Extremities: Yes: Other (Mild foot edema, no warmth or tenderness) Wound/Incision: Yes: Other (plantar foot wound site clean) Labs: CBC, BMP 09/21/17 06:00 09/21/17 06:00 INR, PTT INR 1.08 (0.82-1.09) 09/18/17 20:30 Microbiology 09/22/17 14:15 Drainage Gram Stain - Final 09/22/17 14:15 Drainage Body Fluid Culture - Preliminary Non Lactose Fermenting Gnb Lactose Fermenting Neg Bacilli 09/22/17 23:50 Blood - Peripheral Venous Blood Culture - Preliminary NO GROWTH OBTAINED AFTER 24 HOURS, INCUBATION TO CONTINUE FOR 4 DAYS. 09/22/17 23:50 Blood - Peripheral Venous Blood Culture - Preliminary NO GROWTH OBTAINED AFTER 24 HOURS, INCUBATION TO CONTINUE FOR 4 DAYS. 09/18/17 20:30 Blood - Peripheral Venous Blood Culture - Final NO GROWTH AFTER 5 DAYS INCUBATION 09/18/17 20:30 Blood - Peripheral Venous Blood Culture - Final NO GROWTH AFTER 5 DAYS INCUBATION Problem List - Problems (1) Cellulitis and abscess of foot Code(s): L03.119 - CELLULITIS OF UNSPECIFIED PART OF LIMB L02.619 - CUTANEOUS ABSCESS OF UNSPECIFIED FOOT (2) Diabetes Code(s): E11.9 - TYPE 2 DIABETES MELLITUS WITHOUT COMPLICATIONS Qualifiers: Diabetes mellitus type: type 2 Diabetes mellitus complication status: with other specified complication Diabetes mellitus truck terminal manager insulin use: without truck terminal manager use Qualified Code(s): E11.69 - Type 2 diabetes mellitus with other specified complication; E11.69 - Type 2 diabetes mellitus with other specified complication; E11.69 - Type 2 diabetes mellitus with other specified complication; E11.69 - Type 2 diabetes mellitus with other specified complication; Z79.4 - jail (current) use of insulin; Z79.4 - jail ( current) use of insulin; Z79.4 - jail (current) use of insulin; Z79.4 - termite renewal inspector (current) use of insulin (3) Puncture wound of foot without foreign body Code(s): S91.339A - PUNCTURE WOUND WITHOUT FOREIGN BODY, UNSP FOOT, INIT ENCNTR Qualifiers: Encounter type: initial encounter Laterality: right Qualified Code( s): S91.331A - Puncture wound without foreign body, right foot, initial encounter; S91.331A - Puncture wound without foreign body, right foot, initial encounter Assessment/Plan Foot cellulitis s/p drainage of superficial abscess Poorly controlled diabetic - continue antibiotics - appears to be improving - f/u wound culture isolate case d/w family at bedside
[2017-09-24] MEDS ORDERED: PT OWN MED DRAWER 7, Y5N ONE (20:51)
[2017-09-25] MEDS: PIPERACILLIN/TAZOB 3.375 GM 50 ML IVPB SCH ×3 (01:56→18:11)
[2017-09-25] MEDS ORDERED: PT OWN MED DRAWER 7, Y5N ONE ×3 (05:12→23:18)
[2017-09-25] MEDS: metFORMIN HCL 500 MG TABLET (FP) PO SCH (06:13)
[2017-09-25] MEDS: MESALAMINE 800 MG TABLET.DR PO SCH ×3 (06:13→23:27)
[2017-09-25] MEDS: sitaGLIPtin PHOSPHATE 50 MG TABLET PO SCH (06:13)
[2017-09-25] MEDS: INSULIN SLIDING SCALE (NOVOLOG) 1 VIAL SQ SCH ×4 (06:14→23:27)
[2017-09-25 06:52] LABS: BASOPHIL 0.3 % (0-2.0); EOSINOPHIL 1.4 % (0-4.5); MCH 27.8 pg (25.7-33.7); MCHC 35.2 g/dl (32.0-36.0); MEAN CELL VOLUME 78.9 fl (80-96); MEAN PLT VOLUME 7.7 fl (7.5-11.1); NEUTROPHILS 71.2 % (42.8-82.8); PLATELET COUNT 280 K/MM3 (134-434); RDW 14.6 % (11.6-15.6); WHITE BLOOD COUNT 5.7 K/mm3 (4.0-10.0)
[2017-09-25 06:54] LABS: ALBUMIN 2.5 g/dl (3.4-5.0); ANION GAP 8 (8-16); BILIRUBIN,TOTAL 0.3 mg/dL (0.2-1.0); CALCIUM 8.4 mg/dL (8.5-10.1); CO2 27 mmol/L (21-32); CREATININE 1.1 mg/dL (0.55-1.02); GLUCOSE,RANDOM 188 mg/dL (74-106); SGOT/AST 13 U/L (15-37); SGPT/ALT 33 U/L (12-78); TOT PROT 6.4 g/dl (6.4-8.2)
[2017-09-25 06:55] LABS: ALK PHOS 94 U/L (45-117)
[2017-09-25] MEDS: ASPIRIN 81 MG CHEWABLE TABLETS PO SCH (09:19)
[2017-09-25] MEDS: amLODIPine BESYLATE 5 MG TABLET (FP) PO SCH (09:19)
[2017-09-25] MEDS: HYDROCHLOROTHIAZIDE 12.5 MG CAPSULE (FP) PO SCH (09:19)
[2017-09-25] MEDS: PANTOPRAZOLE 40 MG TABLET (FP) PO SCH (09:19)
[2017-09-25] MEDS: HEPARIN NA (PORCINE) 5,000 UNITS/ML 1ML VIAL SQ SCH ×3 (09:20→23:44)
--- NOTE | 2017-09-25 10:08 | PN ---
Progress Note (short form) - Note Progress Note: Ortho Pt seen and examined s/p right foot I&D, foot is feeling better. Pt c/o abdominal discomfort and not feeling well Microbiology 09/22/17 14:15 Drainage Gram Stain - Final 09/22/17 14:15 Drainage Anaerobic Culture - Final NO ANAEROBES WERE ISOLATED 09/22/17 14:15 Drainage Body Fluid Culture - Preliminary Aeromonas Hydrophilia Group Lactose Fermenting Neg Bacilli Selected Entries 09/25/17 09:47 Temperature 98 F Pulse Rate 75 Respiratory 20 Rate Blood Pressure 143/72 Laboratory Tests 09/25/17 05:35 WBC 5.7 Hgb 9.1 L Hct 25.7 L Plt Count 280 D right foot- improving, decr swelling, decr erythema, mild ttp, no drainage, packing removed nvi a/p Wound re-packed, sterile dressing applied Abx as per ID elevation will follow d/w Dr. Pryor
[2017-09-25] MEDS ORDERED: INSULIN (NOVOLOG) ASPART 100 UNITS/ML 10ML VIAL ONE (12:09)
[2017-09-25] MEDS: OXYBUTYNIN CHLORIDE 5 MG TABLET PO SCH ×2 (12:19→23:27)
--- NOTE | 2017-09-25 12:22 | PN ---
Progress Note, Physician History of Present Illness: patient doing well leg looks much better no complaints swelling erythema improving - Current Medication List Current Medications: Active Medications Acetaminophen (Tylenol -) 650 mg PO Q6H PRN PRN Reason: FEVER OR PAIN Last Admin: 09/23/17 10:15 Dose: 650 mg Amlodipine Besylate (Norvasc -) 5 mg PO DAILY [facility] Last Admin: 09/25/17 09:19 Dose: 5 mg Aspirin (Asa -) 81 mg PO DAILY [facility] Last Admin: 09/25/17 09:19 Dose: 81 mg Heparin Sodium (Porcine) (Heparin -) 5,000 unit SQ BID [facility] Last Admin: 09/25/17 09:20 Dose: 5,000 unit Hydrochlorothiazide (Hctz -) 12.5 mg PO DAILY [facility] Last Admin: 09/25/17 09:19 Dose: 12.5 mg Piperacillin/Tazobactam/Dextrose (Zosyn 3.375gm Ivpb (Premix)) 50 mls @ 100 mls /hr IVPB Q8H-IV [facility] PRN Reason: Protocol Last Admin: 09/25/17 09:19 Dose: 100 mls/hr Insulin Aspart (Novolog Vial Sliding Scale -) 1 vial SQ ACHS [facility] PRN Reason: Protocol Last Admin: 09/25/17 12:18 Dose: 6 units Mesalamine (Asacol Hd -) 800 mg PO TID [facility] Last Admin: 09/25/17 06:13 Dose: Not Given Metformin HCl (Glucophage -) 500 mg PO DAILY@0700 [facility] Last Admin: 09/25/17 06:13 Dose: 500 mg Oxybutynin Chloride (Ditropan -) 5 mg PO BID [facility] Last Admin: 09/25/17 12:19 Dose: 5 mg Oxycodone HCl (Roxicodone -) 5 mg PO Q4H PRN PRN Reason: PAIN LEVEL 6-10 Last Admin: 09/22/17 16:43 Dose: 5 mg Pantoprazole Sodium (Protonix -) 40 mg PO DAILY [facility] Last Admin: 09/25/17 09:19 Dose: 40 mg Sitagliptin Phosphate (Januvia -) 50 mg PO DAILY@0700 [facility] Last Admin: 09/25/17 06:13 Dose: 50 mg - Objective Vital Signs: Vital Signs Temperature 98 F 09/25/17 09:47 Pulse Rate 75 09/25/17 09:47 Respiratory Rate 20 09/25/17 09:47 Blood Pressure 143/72 09/25/17 09:47 O2 Sat by Pulse Oximetry (%) 97 09/23/17 21:00 Constitutional: Yes: No Distress, Calm Cardiovascular: Yes: Regular Rate and Rhythm Respiratory: Yes: Regular, CTA Bilaterally Gastrointestinal: Yes: Normal Bowel Sounds, Soft Musculoskeletal: Yes: Other Extremities: Yes: Other (cellulitis improving) Wound/Incision: Yes: Dressing Dry and Intact Neurological: Yes: Alert, Oriented Psychiatric: Yes: Alert, Oriented Labs: CBC, BMP 09/25/17 05:35 09/25/17 05:35 INR, PTT INR 1.08 (0.82-1.09) 09/18/17 20:30 Assessment/Plan history noted,also noticed streaking of the leg and swelling and tenderness Problem List - Problems (1) Diabetes Code(s): E11.9 - TYPE 2 DIABETES MELLITUS WITHOUT COMPLICATIONS Qualifiers: Diabetes mellitus type: type 2 Diabetes mellitus complication status: with other specified complication Diabetes mellitus exterminator helper insulin use: without exterminator helper use Qualified Code(s): E11.69 - Type 2 diabetes mellitus with other specified complication; E11.69 - Type 2 diabetes mellitus with other specified complication; E11.69 - Type 2 diabetes mellitus with other specified complication; E11.69 - Type 2 diabetes mellitus with other specified complication; Z79.4 - termite exterminator helper (current) use of insulin; Z79.4 - termite exterminator helper ( current) use of insulin; Z79.4 - intermediate (current) use of insulin; Z79.4 - intermediate (current) use of insulin (2) Puncture wound of foot without foreign body Code(s): S91.339A - PUNCTURE WOUND WITHOUT FOREIGN BODY, UNSP FOOT, INIT ENCNTR Qualifiers: Encounter type: initial encounter Laterality: right Qualified Code( s): S91.331A - Puncture wound without foreign body, right foot, initial encounter; S91.331A - Puncture wound without foreign body, right foot, initial encounter (3) Cellulitis and abscess of foot Code(s): L03.119 - CELLULITIS OF UNSPECIFIED PART OF LIMB L02.619 - CUTANEOUS ABSCESS OF UNSPECIFIED FOOT punctuate wound plan continue abx follow the cellulitits await for cx rest as per primary team patient improving
--- NOTE | 2017-09-25 17:31 | PN ---
Progress Note, Physician History of Present Illness: no complaints - Current Medication List Current Medications: Active Medications Acetaminophen (Tylenol -) 650 mg PO Q6H PRN PRN Reason: FEVER OR PAIN Last Admin: 09/23/17 10:15 Dose: 650 mg Amlodipine Besylate (Norvasc -) 5 mg PO DAILY [facility] Last Admin: 09/25/17 09:19 Dose: 5 mg Aspirin (Asa -) 81 mg PO DAILY [facility] Last Admin: 09/25/17 09:19 Dose: 81 mg Heparin Sodium (Porcine) (Heparin -) 5,000 unit SQ BID [facility] Last Admin: 09/25/17 09:20 Dose: 5,000 unit Hydrochlorothiazide (Hctz -) 12.5 mg PO DAILY [facility] Last Admin: 09/25/17 09:19 Dose: 12.5 mg Piperacillin/Tazobactam/Dextrose (Zosyn 3.375gm Ivpb (Premix)) 50 mls @ 100 mls /hr IVPB Q8H-IV [facility] PRN Reason: Protocol Last Admin: 09/25/17 09:19 Dose: 100 mls/hr Insulin Aspart (Novolog Vial Sliding Scale -) 1 vial SQ ACHS [facility] PRN Reason: Protocol Last Admin: 09/25/17 12:18 Dose: 6 units Mesalamine (Asacol Hd -) 800 mg PO TID [facility] Last Admin: 09/25/17 16:10 Dose: 800 mg Metformin HCl (Glucophage -) 500 mg PO DAILY@0700 [facility] Last Admin: 09/25/17 06:13 Dose: 500 mg Oxybutynin Chloride (Ditropan -) 5 mg PO BID [facility] Last Admin: 09/25/17 12:19 Dose: 5 mg Pantoprazole Sodium (Protonix -) 40 mg PO DAILY [facility] Last Admin: 09/25/17 09:19 Dose: 40 mg Sitagliptin Phosphate (Januvia -) 50 mg PO DAILY@0700 [facility] Last Admin: 09/25/17 06:13 Dose: 50 mg - Objective Vital Signs: Vital Signs Temperature 98 F 09/25/17 13:58 Pulse Rate 81 09/25/17 13:58 Respiratory Rate 20 09/25/17 13:58 Blood Pressure 140/76 09/25/17 13:58 O2 Sat by Pulse Oximetry (%) 97 09/23/17 21:00 Constitutional: Yes: No Distress HENT: Yes: Atraumatic Neck: Yes: Supple Cardiovascular: Yes: Regular Rate and Rhythm Respiratory: Yes: CTA Bilaterally Gastrointestinal: Yes: Normal Bowel Sounds Extremities: Yes: Other (r foot cellulitis) Neurological: Yes: Alert, Oriented Labs: CBC, BMP 09/25/17 05:35 09/25/17 05:35 INR, PTT INR 1.08 (0.82-1.09) 09/18/17 20:30 Problem List - Problems (1) Diabetes Assessment/Plan: insulin, oral hypoglycemics bgms stable Code(s): E11.9 - TYPE 2 DIABETES MELLITUS WITHOUT COMPLICATIONS Qualifiers: Diabetes mellitus type: type 2 Diabetes mellitus complication status: with other specified complication Diabetes mellitus residential insulin use: without buttermilk drier operator use Qualified Code(s): E11.69 - Type 2 diabetes mellitus with other specified complication; E11.69 - Type 2 diabetes mellitus with other specified complication; E11.69 - Type 2 diabetes mellitus with other specified complication; E11.69 - Type 2 diabetes mellitus with other specified complication; Z79.4 - watermaster (current) use of insulin; Z79.4 - detention ( current) use of insulin; Z79.4 - detention (current) use of insulin; Z79.4 - detention (current) use of insulin (2) Puncture wound of foot without foreign body Assessment/Plan: iv abx S/P i and d wound care and dressing change Code(s): S91.339A - PUNCTURE WOUND WITHOUT FOREIGN BODY, UNSP FOOT, INIT ENCNTR Qualifiers: Encounter type: initial encounter Laterality: right Qualified Code( s): S91.331A - Puncture wound without foreign body, right foot, initial encounter; S91.331A - Puncture wound without foreign body, right foot, initial encounter (3) Cellulitis and abscess of foot Assessment/Plan: on abx Code(s): L03.119 - CELLULITIS OF UNSPECIFIED PART OF LIMB L02.619 - CUTANEOUS ABSCESS OF UNSPECIFIED FOOT
[2017-09-26] MEDS: PIPERACILLIN/TAZOB 3.375 GM 50 ML IVPB SCH ×2 (01:26→09:38)
[2017-09-26] MEDS: metFORMIN HCL 500 MG TABLET (FP) PO SCH (06:00)
[2017-09-26] MEDS: sitaGLIPtin PHOSPHATE 50 MG TABLET PO SCH (06:00)
[2017-09-26] MEDS: MESALAMINE 800 MG TABLET.DR PO SCH ×2 (06:00→14:09)
[2017-09-26] MEDS: INSULIN SLIDING SCALE (NOVOLOG) 1 VIAL SQ SCH ×3 (06:01→17:04)
[2017-09-26] MEDS ORDERED: PT OWN MED DRAWER 7, Y5N ONE (09:36)
[2017-09-26] MEDS: amLODIPine BESYLATE 5 MG TABLET (FP) PO SCH (09:39)
[2017-09-26] MEDS: OXYBUTYNIN CHLORIDE 5 MG TABLET PO SCH (09:39)
[2017-09-26] MEDS: HYDROCHLOROTHIAZIDE 12.5 MG CAPSULE (FP) PO SCH (09:40)
[2017-09-26] MEDS: PANTOPRAZOLE 40 MG TABLET (FP) PO SCH (09:40)
[2017-09-26] MEDS: HEPARIN NA (PORCINE) 5,000 UNITS/ML 1ML VIAL SQ SCH (09:40)
[2017-09-26] MEDS: ASPIRIN 81 MG CHEWABLE TABLETS PO SCH (09:40)
[2017-09-26] MEDS ORDERED: INSULIN (NOVOLOG) ASPART 100 UNITS/ML 10ML VIAL ONE (12:03)
--- NOTE | 2017-09-26 13:39 | PN ---
Progress Note, Physician History of Present Illness: patient doing well no issues cellulittis improving wound looks good dressing removed wound looked at - Current Medication List Current Medications: Active Medications Acetaminophen (Tylenol -) 650 mg PO Q6H PRN PRN Reason: FEVER OR PAIN Last Admin: 09/23/17 10:15 Dose: 650 mg Amlodipine Besylate (Norvasc -) 5 mg PO DAILY [facility] Last Admin: 09/26/17 09:39 Dose: 5 mg Aspirin (Asa -) 81 mg PO DAILY [facility] Last Admin: 09/26/17 09:40 Dose: 81 mg Heparin Sodium (Porcine) (Heparin -) 5,000 unit SQ BID [facility] Last Admin: 09/26/17 09:40 Dose: 5,000 unit Hydrochlorothiazide (Hctz -) 12.5 mg PO DAILY [facility] Last Admin: 09/26/17 09:40 Dose: 12.5 mg Insulin Aspart (Novolog Vial Sliding Scale -) 1 vial SQ ACHS [facility] PRN Reason: Protocol Last Admin: 09/26/17 12:05 Dose: 6 units Mesalamine (Asacol Hd -) 800 mg PO TID [facility] Last Admin: 09/26/17 06:00 Dose: 800 mg Metformin HCl (Glucophage -) 500 mg PO DAILY@0700 [facility] Last Admin: 09/26/17 06:00 Dose: 500 mg Oxybutynin Chloride (Ditropan -) 5 mg PO BID [facility] Last Admin: 09/26/17 09:39 Dose: 5 mg Pantoprazole Sodium (Protonix -) 40 mg PO DAILY [facility] Last Admin: 09/26/17 09:40 Dose: 40 mg Sitagliptin Phosphate (Januvia -) 50 mg PO DAILY@0700 [facility] Last Admin: 09/26/17 06:00 Dose: 50 mg - Objective Vital Signs: Vital Signs Temperature 97.8 F 09/26/17 09:00 Pulse Rate 70 09/26/17 09:00 Respiratory Rate 18 09/26/17 09:00 Blood Pressure 140/70 09/26/17 09:00 O2 Sat by Pulse Oximetry (%) 98 09/26/17 09:00 Constitutional: Yes: No Distress, Calm Cardiovascular: Yes: Regular Rate and Rhythm Respiratory: Yes: Regular, CTA Bilaterally Gastrointestinal: Yes: Normal Bowel Sounds, Soft Musculoskeletal: Yes: Other Extremities: Yes: Erythema (improving), Other Wound/Incision: Yes: Clean/Dry, Dressing Removed, Other Neurological: Yes: Alert, Oriented Psychiatric: Yes: Alert, Oriented Labs: CBC, BMP 09/25/17 05:35 09/25/17 05:35 INR, PTT INR 1.08 (0.82-1.09) 09/18/17 20:30 Assessment/Plan history noted,also noticed streaking of the leg and swelling and tenderness Problem List - Problems (1) Diabetes Code(s): E11.9 - TYPE 2 DIABETES MELLITUS WITHOUT COMPLICATIONS Qualifiers: Diabetes mellitus type: type 2 Diabetes mellitus complication status: with other specified complication Diabetes mellitus chcf insulin use: without chcf use Qualified Code(s): E11.69 - Type 2 diabetes mellitus with other specified complication; E11.69 - Type 2 diabetes mellitus with other specified complication; E11.69 - Type 2 diabetes mellitus with other specified complication; E11.69 - Type 2 diabetes mellitus with other specified complication; Z79.4 - terminal gauger (current) use of insulin; Z79.4 - terminal gauger ( current) use of insulin; Z79.4 - USP (current) use of insulin; Z79.4 - terminal gauger (current) use of insulin (2) Puncture wound of foot without foreign body Code(s): S91.339A - PUNCTURE WOUND WITHOUT FOREIGN BODY, UNSP FOOT, INIT ENCNTR Qualifiers: Encounter type: initial encounter Laterality: right Qualified Code( s): S91.331A - Puncture wound without foreign body, right foot, initial encounter; S91.331A - Puncture wound without foreign body, right foot, initial encounter (3) Cellulitis and abscess of foot Code(s): L03.119 - CELLULITIS OF UNSPECIFIED PART OF LIMB L02.619 - CUTANEOUS ABSCESS OF UNSPECIFIED FOOT punctuate wound plan all cx report noted one cx still to be identified switching patient to oral abx patient switched to oral bactrim for 7 more days and augmentin for 7 more days wound care to follow
[2017-09-26] MEDS ORDERED: SULFAMETHOXAZOLE/TRIMETHOPRIM 800MG/160MG D.S. TABLET PO SCH (13:45)
--- NOTE | 2017-09-26 16:56 | DS ---
Physical Examination Vital Signs: Vital Signs Temperature 98.1 F 09/26/17 14:38 Pulse Rate 73 09/26/17 14:38 Respiratory Rate 18 09/26/17 14:38 Blood Pressure 138/71 09/26/17 14:38 O2 Sat by Pulse Oximetry (%) 98 09/26/17 09:00 Constitutional: Yes: No Distress HENT: Yes: Atraumatic Neck: Yes: Supple Cardiovascular: Yes: Regular Rate and Rhythm Respiratory: Yes: CTA Bilaterally Gastrointestinal: Yes: Normal Bowel Sounds Extremities: Yes: Other (R FOOT IMPROVING) Edema: RLE: 1+ Neurological: Yes: Alert, Oriented Labs: CBC, BMP 09/25/17 05:35 09/25/17 05:35 Discharge Summary Reason For Visit: PUNCTURE WOUND OF FOOT WITHOUT FOREIGN BODY Current Active Problems Cellulitis and abscess of foot (Acute) Cellulitis, leg (Acute) Diabetes (Acute) Puncture wound of foot without foreign body (Acute) - Instructions Diet, Activity, Other Instructions: SEE YOUR PRIMARY DOCTOR IN 2 DAYS. KEEP DRESSING DRY AND CLEAN. FOLLOW UP WITH DR. MANCUSO ON MONDAY. CALL [phone]. Referrals: Arlene Mcknight [Primary Care Provider] - - Home Medications Comprehensive Discharge Medication List: Ambulatory Orders Cholecalciferol (Vitamin D3) [Vitamin D3] 5,000 unit PO DAILY 07/10/17 Ferrous Sulfate [Ferosul] 300 mg PO DAILY 07/10/17 Linagliptin [Tradjenta] 5 mg PO DAILY 07/10/17 Mesalamine [Asacol HD -] 800 mg PO TID 07/10/17 Pantoprazole Sodium 40 mg PO DAILY 07/10/17 Amlodipine Besylate 5 mg PO DAILY 09/18/17 Aspirin [ASA -] 81 mg PO DAILY 09/18/17 Hydrochlorothiazide [Hctz -] 12.5 mg PO DAILY 09/18/17 Insulin Degludec [Tresiba Flextouch U-100] 55 unit SQ DAILY 09/18/17 Metformin HCl 500 mg PO DAILY 09/18/17 Oxybutynin Chloride [Ditropan Xl] 10 mg PO DAILY 09/18/17 Psyllium Husk [Metamucil] 425 gm PO DAILY 09/18/17 Ramipril 2.5 mg PO DAILY 09/18/17 Amox-Tr/K Cl [Augmentin 875-125mg Tablet -] 1 tab PO BID@0800,1730 #14 tablet bactrim 1 po bid x7 days [place] [facility]
[2017-09-26] MEDS ORDERED: AMOX TR/POT CLAV 875MG/125MG TABLETS (FP) PO SCH (17:30)
[2017-09-26 18:15] VITALS: BP 152/72; PULSE 77; TEMP 97.7
== END 2017-09-26 19:26 | disposition home or self-care (01) | DRG 603 ==
LOC: JER 17:40 → J7W 21:08
PROVIDERS: ADMIT Internal Medicine; ATTEND Internal Medicine
PROC: 0H9MXZZ Drainage of Right Foot Skin, External Approach (ICD-10-PCS; principal; 2017-09-22)
DX: L03.115 Cellulitis of right lower limb (principal); L02.611 Cutaneous abscess of right foot; S91.331A Puncture wound without foreign body, right foot, initial encounter; W45.0XXA Nail entering through skin, initial encounter; Y93.89 Activity, other specified; Y92.89 Other specified places as the place of occurrence of the external cause; Y99.8 Other external cause status; E78.5 Hyperlipidemia, unspecified; Z79.4 Long term (current) use of insulin; E11.65 Type 2 diabetes mellitus with hyperglycemia
CPT/HCPCS: 36415; 71020-TC; 73630-TC-RT; 80053; 83605; 85025; 85610; 85730; 87040; 87070; 87075; 87186; 87205; 93005; 93010; 99284-25; J1644

== ENCOUNTER 2017-11-29 12:04 | Inpatient (IN) | payer MEDICARE, OTHER ==
--- NOTE | 2017-11-29 13:04 | PDOC ---
*Physical Exam - Physical Exam Comments: 11/29/17 13:03 The patient was examined by [LEANDRO Hernadez] under my direct supervision. I personally evaluated the patient. I concur with the above findings and the plan of care. ED Treatment Course - LABORATORY CBC & Chemistry Diagram: 12/04/17 07:00 12/04/17 07:00 *DC/Admit/Observation/Transfer Diagnosis at time of Disposition: Hematuria, Anemia - Discharge Dispostion Disposition: HOME Condition at time of disposition: Improved - Prescriptions - Referrals - Patient Instructions - Post Discharge Activity
[2017-11-29] MEDS ORDERED: SODIUM CHLORIDE 1,000 ML IV STA (13:11)
[2017-11-29] MEDS ORDERED: morphine CARPU-JECT 2 MG/1 ML DISP.SYRIN IVPUSH ONE (13:11)
[2017-11-29 13:13] VITALS: BMI 25.2
[2017-11-29] MEDS ORDERED: morphine CARPU-JECT 10 MG/1 ML DISP.SYRIN ONE (13:13)
--- NOTE | 2017-11-29 13:44 | PDOC ---
History of Present Illness - General Chief Complaint: Vaginal Bleeding Stated Complaint: VAGINAL BLEEDING Time Seen by Provider: 11/29/17 12:51 History Source: Patient Exam Limitations: No Limitations - History of Present Illness Travel History: No Initial Comments: 11/29/17 15:03 67-year-old female presents to the ED with sudden onset of low suprapubic pressure along with vaginal bleeding that started at 6 AM this morning has increased over the past few hours. Patient also states feels a pressure and denies any urinary or bowel complaints. Patient states history of uterine cancer numerous years ago and states has had no vaginal bleeding since menopause. Patient states is anemic of unknown etiology and states her last colonoscopy was 4 years ago. Patient denies fever, chills, nausea but does state generalized weakness. Timing/Duration: reports: constant Quality: reports: severe, cramping, fullness Abdominal Pain Onset Location: reports: suprapubic Pain Radiation: reports: no radiation Activities at Onset: reports: none Aggravating Factors: improves with: None Alleviating Factors: improves with: None Past History - Travel Traveled outside of the country in the last 30 days: No - Past Medical History Allergies/Adverse Reactions: Allergies Allergy/AdvReac Type Severity Reaction Status Date / Time No Known Allergies Allergy Verified 11/29/17 13:09 Home Medications: Ambulatory Orders Cholecalciferol (Vitamin D3) [Vitamin D3] 5,000 unit PO DAILY 07/10/17 Ferrous Sulfate [Ferosul] 300 mg PO DAILY 07/10/17 Linagliptin [Tradjenta] 5 mg PO DAILY 07/10/17 Mesalamine [Asacol HD -] 800 mg PO TID 07/10/17 Pantoprazole Sodium 40 mg PO DAILY 07/10/17 Amlodipine Besylate 5 mg PO DAILY 09/18/17 Aspirin [ASA -] 81 mg PO DAILY 09/18/17 Hydrochlorothiazide [Hctz -] 12.5 mg PO DAILY 09/18/17 Insulin Degludec [Tresiba Flextouch U-100] 55 unit SQ DAILY 09/18/17 Metformin HCl 500 mg PO DAILY 09/18/17 Oxybutynin Chloride [Ditropan Xl] 10 mg PO DAILY 09/18/17 Psyllium Husk [Metamucil] 425 gm PO DAILY 09/18/17 Ramipril 2.5 mg PO DAILY 09/18/17 Sulfamethoxazole/Trimethoprim [Bactrim DS -] 1 each PO BID #14 tablet 09/26/17 Anemia: Yes Asthma: No Cancer: Yes (Uterine) Cardiac Disorders: No CVA: No COPD: No CHF: No Dementia: No Diabetes: Yes GI Disorders: No Disorders: No HTN: Yes Hypercholesterolemia: No Liver Disease: No Seizures: No Thyroid Disease: No - Surgical History Abdominal Surgery: No Appendectomy: No Cardiac Surgery: No Cholecystectomy: No Lung Surgery: No Neurologic Surgery: No Orthopedic Surgery: No - Immunization History Immunization Up to Date: Yes - Suicide/Smoking/Psychosocial Hx Smoking History: Never smoked Have you smoked in the past 12 months: No Information on smoking cessation initiated: No Hx Alcohol Use: No Drug/Substance Use Hx: No Substance Use Type: None Hx Substance Use Treatment: No Patient Lives Alone: No Lives with/in: spouse/SO Review of Systems - Review of Systems Able to Perform ROS?: Yes Constitutional: No: Symptoms Reported HEENTM: No: Symptoms Reported Respiratory: No: Symptoms reported Cardiac (ROS): No: Symptoms Reported ABD/GI: Yes: Abdominal cramping : Yes: Discharge (vaginal) Musculoskeletal: No: Symptoms Reported Integumentary: No: Symptoms Reported Neurological: No: Symptoms reported Hematologic/Lymphatic: Yes: Anemia *Physical Exam - Vital Signs Last Vital Signs Temp Pulse Resp BP Pulse Ox 97.7 F 120 H 20 161/95 100 11/29/17 12:05 11/29/17 12:05 11/29/17 12:05 11/29/17 12:05 11/29/17 12:05 - Physical Exam General Appearance: Yes: Nourished, Appropriately Dressed, Mild Distress HEENT: negative: Pale Conjunctivae Respiratory/Chest: positive: Lungs Clear, Normal Breath Sounds. negative: Respiratory Distress, Accessory Muscle Use Cardiovascular: positive: Regular Rhythm, Tachycardia. negative: Murmur Female Pelvic Exam: positive: vaginal bleeding (bright red blood noted at opening of vaginal canal, no clots), other (pt refused completion of pelvic exam. Visualized vaginal canal partially with speculum) Gastrointestinal/Abdominal: positive: Soft, Tenderness (midsuprapubic) Integumentary: positive: Normal Color, Warm, Moist Neurologic: positive: Motor Strength 5/5 (ambulatory) ED Treatment Course - LABORATORY CBC & Chemistry Diagram: 11/30/17 06:07 11/30/17 06:07 - RADIOLOGY Radiology Studies Ordered: Category Date Time Status PELVIC / BLADDER US [US] Stat Ultrasound 11/29/17 13:11 Ordered TRANSVAGINAL ULTRASOUND US [US] Stat Ultrasound 11/29/17 13:11 Ordered - Medications Given in the ED: ED Medications Discontinued Medications Generic Name Dose Route Start Last Admin Trade Name Amparo PRN Reason Stop Dose Admin Morphine Sulfate 4 mg 11/29/17 13:11 11/29/17 13:29 Morphine Injection - IVPUSH 11/29/17 13:12 4 mg ONCE ONE Administration Medical Decision Making - Critical Care Time Total Critical Care Time (minutes): 45 Critical Care Statement: The care of this patient involved high complexity decision making to prevent further life threatening deterioration of the patient 's condition and/or to evaluate & treat vital organ system(s) failure or risk of failure. - Medical Decision Making 11/29/17 15:04 Patient with history of uterine cancer 25 years ago now sudden onset of vaginal bleeding and suprapubic pressure since 6 AM this morning. Patient with normal vital signs but appears to be very uncomfortable complaining of severe pressure. Patient refused full pelvic exam and had bright red blood at opening of the vault. Unable to visualize cervix. Pt with suprapubic tenderness with questionable bladder distention vs mass over vertical suprapubic healed incision ( from BTL). Patient concerning for uterine mass vs bladder mass. Patient ordered for urine, labs, morphine IV, IV fluids and ultrasound. 11/29/17 15:36 Laboratory Tests 11/29/17 11/29/17 13:30 13:30 WBC 9.3 D Hgb 8.8 L Hct 27.4 L Neutrophils % 90.8 H D PT with INR 11.90 H INR 1.05 Requested to come to the ultrasound by plant maintenance technician secondary to patient complaining of inability to void after receiving the pelvic ultrasound. As per tech clots were visualized with inside the bladder. I have placed a #14 Catheter without difficulty but had noticed numerous clots during drainage. Patient had approximately 60 mL of normal saline irrigation in order to allow passage of clots and decompression of bladder. Patient had a total of 900 mL prior to whatley catheter placement. Patient drained approximately 450 mL of hematuria with small clots upon placement. Patient will be admitted to service. repeat vitals in ultrasound stable. Pt states states relief and no pressure presently. Pt will return to the main ED and be placed on ekg monitor tech . Selected Entries 11/29/17 16:07 Pulse Rate [ 87 Right Radial] Respiratory 18 Rate Blood Pressure 164/80 [Left Arm] O2 Sat by Pulse 99 Oximetry (%) 11/29/17 17:02 Patient continues to drain hematuria at approximately 50 mL an hour. Patient has a second bag of IV fluids infusing. Vital signs stable. Case discussed with hospitalist accepted to [facility]. Pt will also need repeat cbc to check h/h. Urology will be consult. 11/29/17 17:03 Laboratory Tests 11/29/17 11/29/17 11/29/17 13:30 13:30 15:30 Sodium 134 L Potassium 4.3 Chloride 101 Carbon Dioxide 22 Anion Gap 11 BUN 30 H D Creatinine 1.0 Random Glucose 292 H D Calcium 8.3 L Total Bilirubin 0.4 D AST 14 L ALT 25 D Alkaline Phosphatase 108 Total Protein 7.1 Albumin 3.4 D Urine Protein 3+ H Urine Glucose (UA) 3+ H Urine Ketones Negative Urine Blood 3+ H Urine Nitrite Negative Ur Leukocyte Esterase Pending Blood Type O POSITIVE *DC/Admit/Observation/Transfer Diagnosis at time of Disposition: Hematuria, Anemia - Discharge Dispostion Admit: Yes - Referrals - Patient Instructions - Post Discharge Activity
[2017-11-29 14:02] LABS: RBC 3.38 M/mm3 (3.60-5.2)
[2017-11-29 14:04] LABS: BASO % 0.3 % (0-2.0); HEMATOCRIT 27.4 % (32.4-45.2); HEMOGLOBIN 8.8 GM/dL (10.7-15.3); LYMPH % 4.6 % (8-40); MCH 26.1 pg (25.7-33.7); MCHC 32.2 g/dl (32.0-36.0); MEAN PLT VOLUME 8.1 fl (7.5-11.1); MONO % 4.3 % (3.8-10.2); NEUT % 90.8 % (42.8-82.8); PLATELET COUNT 188 K/MM3 (134-434); RDW 16.5 % (11.6-15.6); WHITE BLOOD COUNT 9.3 K/mm3 (4.0-10.0)
[2017-11-29 14:25] LABS: INR 1.05 (0.82-1.09); PROTHROMBIN TIME (PATIENT) 11.9 SEC (9.98-11.88)
[2017-11-29 14:55] LABS: ALBUMIN 3.4 g/dl (3.4-5.0); ANION GAP 11 (8-16); BILIRUBIN,TOTAL 0.4 mg/dL (0.2-1.0); BLOOD UREA NITROGEN 30 mg/dL (7-18); CALCIUM 8.3 mg/dL (8.5-10.1); CHLORIDE 101 mmol/L (98-107); CO2 22 mmol/L (21-32); GLUCOSE,RANDOM 292 mg/dL (74-106); POTASSIUM 4.3 mmol/L (3.5-5.1); SGOT/AST 14 U/L (15-37); SGPT/ALT 25 U/L (12-78); SODIUM 134 mmol/L (136-145); TOT PROT 7.1 g/dl (6.4-8.2)
[2017-11-29 14:56] LABS: ALK PHOS 108 U/L (45-117)
[2017-11-29] MEDS ORDERED: ONDANSETRON 4 MG/2 ML VIAL ONE ×2 (15:18→17:03)
[2017-11-29] MEDS ORDERED: HYDROmorphone HCL CARPU-JECT 1 MG/1 ML DISP.SYRIN ONE (15:18)
[2017-11-29 15:47] LABS: URINE APPEARANCE TURBID; URINE BILIRUBIN NEGATIVE (NEGATIVE); URINE BLOOD 3+ (NEGATIVE); URINE COLOR AMBER; URINE GLUCOSE (UA) 3+ (NEGATIVE); URINE KETONE NEGATIVE (NEGATIVE); URINE LEUK ESTERASE NEGATIVE (NEGATIVE); URINE NITRITE NEGATIVE (NEGATIVE); URINE UROBILINOGEN NEGATIVE mg/dL (0.2-1.0)
[2017-11-29 16:11] LABS: URINE PROTEIN 3+ (NEGATIVE)
[2017-11-29] MEDS ORDERED: ONDANSETRON 4 MG/2 ML VIAL IVPUSH ONE (16:58)
--- NOTE | 2017-11-29 17:04 | HP ---
CHIEF COMPLAINT: Suprapubic pressure and vaginal bleeding HISTORY OF PRESENT ILLNESS: 67 year-old female with a PMH significant for HTN, HLD, IDDM, and remote history of uterine cancer. Presented to the ED with complaint of vaginal bleeding and suprapubic pain and pressure. Speculum exam in ED +blood in vaginal canal. Worsening suprapubic pressure prompted placement of a whatley with 650ccs carlos hematuria. Recent Travel: No PAST MEDICAL HISTORY: Hypertension IDDM Uterine cancer PAST SURGICAL HISTORY: Social History: Smoking: never Alcohol: no Drugs: no Family History: Allergies No Known Allergies Allergy (Verified 11/29/17 13:09) HOME MEDICATIONS: Home Medications Medication Instructions Recorded Cholecalciferol (Vitamin D3) 5,000 unit PO DAILY 07/10/17 [Vitamin D3] Ferrous Sulfate [Ferosul] 300 mg PO DAILY 07/10/17 Linagliptin [Tradjenta] 5 mg PO DAILY 07/10/17 Mesalamine [Asacol HD -] 800 mg PO TID 07/10/17 Pantoprazole Sodium 40 mg PO DAILY 07/10/17 Amlodipine Besylate 5 mg PO DAILY 09/18/17 Aspirin [ASA -] 81 mg PO DAILY 09/18/17 Hydrochlorothiazide [Hctz -] 12.5 mg PO DAILY 09/18/17 Insulin Degludec [Tresiba 55 unit SQ DAILY 09/18/17 Flextouch U-100] Metformin HCl 500 mg PO DAILY 09/18/17 Oxybutynin Chloride [Ditropan Xl] 10 mg PO DAILY 09/18/17 Psyllium Husk [Metamucil] 425 gm PO DAILY 09/18/17 Ramipril 2.5 mg PO DAILY 09/18/17 Amox-Tr/K Cl [Augmentin 875-125mg 1 tab PO BID@0800,1730 #14 tablet 09/26/17 Tablet -] Sulfamethoxazole/Trimethoprim 1 each PO BID #14 tablet 09/26/17 [Bactrim DS -] REVIEW OF SYSTEMS Unable to obtain; patient slow to respond to questions, weak, cannot give history at time of exam PHYSICAL EXAMINATION Vital Signs - 24 hr 11/29/17 11/29/17 12:05 16:07 Temperature 97.7 F Pulse Rate 120 H Pulse Rate [ 87 Right Radial] Respiratory 20 18 Rate Blood Pressure 161/95 Blood Pressure 164/80 [Left Arm] O2 Sat by Pulse 100 99 Oximetry (%) GENERAL: A&Ox2. Pale, weak-appearing. Slow, delayed responses to supervisor respiratory's questions,. HEAD: Normal with no signs of trauma. EYES: Pupils equal, round and reactive to light, extraocular movements intact, sclera anicteric, conjunctiva clear. No lid lag. EARS, NOSE, THROAT: Ears normal, nares patent, oropharynx clear without exudates. Moist mucous membranes. NECK: Normal range of motion, supple without lymphadenopathy, JVD, or masses. LUNGS: Breath sounds equal, clear to auscultation bilaterally. No wheezes, and no crackles. No accessory muscle use. HEART: Regular rate and rhythm, normal S1 and S2 ABDOMEN: Area of firmness mid suprapubic area; nontender, not distended MUSCULOSKELETAL: Normal range of motion at all joints. No bony deformities or tenderness. No CVA tenderness. UPPER EXTREMITIES: 2+ pulses, warm, well-perfused. No cyanosis. No clubbing. No peripheral edema. LOWER EXTREMITIES: 2+ pulses, warm, well-perfused. No calf tenderness. No peripheral edema. NEUROLOGICAL: Cranial nerves II-XII intact. Normal speech. SKIN: Pale; warm, dry Laboratory Results - last 24 hr 11/29/17 11/29/17 11/29/17 13:30 13:30 13:30 WBC 9.3 D RBC 3.38 L Hgb 8.8 L Hct 27.4 L MCV 81.0 MCH 26.1 MCHC 32.2 RDW 16.5 H D Plt Count 188 D MPV 8.1 Neutrophils % 90.8 H D Lymphocytes % 4.6 L D Monocytes % 4.3 Eosinophils % 0.0 D Basophils % 0.3 PT with INR 11.90 H INR 1.05 Sodium Potassium Chloride Carbon Dioxide Anion Gap BUN Creatinine Creat Clearance w eGFR Random Glucose Calcium Total Bilirubin AST ALT Alkaline Phosphatase Total Protein Albumin Urine Color Urine Appearance Urine pH Ur Specific Lennon Urine Protein Urine Glucose (UA) Urine Ketones Urine Blood Urine Nitrite Urine Bilirubin Urine Urobilinogen Blood Type O POSITIVE Antibody Screen Negative 11/29/17 11/29/17 13:30 15:30 WBC RBC Hgb Hct MCV MCH MCHC RDW Plt Count MPV Neutrophils % Lymphocytes % Monocytes % Eosinophils % Basophils % PT with INR INR Sodium 134 L Potassium 4.3 Chloride 101 Carbon Dioxide 22 Anion Gap 11 BUN 30 H D Creatinine 1.0 Creat Clearance w eGFR 55.30 Random Glucose 292 H D Calcium 8.3 L Total Bilirubin 0.4 D AST 14 L ALT 25 D Alkaline Phosphatase 108 Total Protein 7.1 Albumin 3.4 D Urine Color Samira Urine Appearance Turbid Urine pH 7.0 Ur Specific Lennon 1.024 Urine Protein 3+ H Urine Glucose (UA) 3+ H Urine Ketones Negative Urine Blood 3+ H Urine Nitrite Negative Urine Bilirubin Negative Urine Urobilinogen Negative Blood Type Antibody Screen ASSESSMENT/PLAN 67 year-old female with a PMH significant for HTN, HLD, IDDM, and remote history of uterine cancer. Admitted for carlos hematuria. Carlos hematuria Acute blood loss anemia --650cc's carlos hematuria in ED --Hgb 8.8; hemodynamically stable --type and screen; 2U PRBC ordered on hold --cbc q6h DVT prophylaxis: SCDs Dispo: requires inpatient care Visit type - Emergency Visit Emergency Visit: Yes ED Registration Date: 11/29/17 Care time: The patient presented to the Emergency Department on the above date and was hospitalized for further evaluation of their emergent condition. - New Patient This patient is new to me today: Yes Date on this admission: 11/30/17 - Critical Care Critical Care patient: No
[2017-11-29 20:26] LABS: HEMATOCRIT 23.5 % (32.4-45.2); HEMOGLOBIN 7.7 GM/dL (10.7-15.3); MCH 26.6 pg (25.7-33.7); MCHC 32.7 g/dl (32.0-36.0); MEAN CELL VOLUME 81.4 fl (80-96); MEAN PLT VOLUME 7.4 fl (7.5-11.1); PLATELET COUNT 167 K/MM3 (134-434); RBC 2.89 M/mm3 (3.60-5.2); RDW 16.8 % (11.6-15.6); WHITE BLOOD COUNT 6.8 K/mm3 (4.0-10.0)
[2017-11-30 05:15] LABS: HEMATOCRIT 25.9 % (32.4-45.2); HEMOGLOBIN 8.5 GM/dL (10.7-15.3); MCH 26.4 pg (25.7-33.7); MCHC 32.7 g/dl (32.0-36.0); MEAN CELL VOLUME 80.8 fl (80-96); MEAN PLT VOLUME 7.7 fl (7.5-11.1); PLATELET COUNT 158 K/MM3 (134-434); RDW 15.8 % (11.6-15.6); WHITE BLOOD COUNT 5.9 K/mm3 (4.0-10.0)
[2017-11-30] MEDS ORDERED: INSULIN REGULAR HUMAN 100 UNITS/ML *VIAL IVPUSH ONE (05:34)
[2017-11-30 07:44] LABS: INR 1.08 (0.82-1.09); PROTHROMBIN TIME (PATIENT) 12.2 SEC (9.98-11.88)
[2017-11-30 07:46] LABS: ACTIVATED PTT 27.3 SECONDS (26.9-34.4)
[2017-11-30 08:11] LABS: ALBUMIN 2.8 g/dl (3.4-5.0); ALK PHOS 75 U/L (45-117); ANION GAP 6 (8-16); BLOOD UREA NITROGEN 19 mg/dL (7-18); CALCIUM 7.8 mg/dL (8.5-10.1); CHLORIDE 108 mmol/L (98-107); CO2 26 mmol/L (21-32); CREATININE 0.8 mg/dL (0.55-1.02); GLUCOSE,RANDOM 128 mg/dL (74-106); PHOSPHOROUS 3.3 mg/dL (2.5-4.9); POTASSIUM 4.4 mmol/L (3.5-5.1); SGOT/AST 11 U/L (15-37); SGPT/ALT 20 U/L (12-78); SODIUM 140 mmol/L (136-145); TOT PROT 5.7 g/dl (6.4-8.2)
[2017-11-30 08:21] LABS: BASO % 0.1 % (0-2.0); EOS % 0.6 % (0-4.5); HEMATOCRIT 26.5 % (32.4-45.2); HEMOGLOBIN 8.6 GM/dL (10.7-15.3); LYMPH % 15.9 % (8-40); MCH 26.4 pg (25.7-33.7); MCHC 32.3 g/dl (32.0-36.0); MEAN CELL VOLUME 81.5 fl (80-96); MEAN PLT VOLUME 8.2 fl (7.5-11.1); MONO % 8.8 % (3.8-10.2); NEUT % 74.6 % (42.8-82.8); PLATELET COUNT 153 K/MM3 (134-434); RBC 3.25 M/mm3 (3.60-5.2); RDW 15.9 % (11.6-15.6); WHITE BLOOD COUNT 5.5 K/mm3 (4.0-10.0)
[2017-11-30] MEDS: CHOLECALCIFEROL (VITAMIN D3) 1,000 UNIT TABLET (FP) PO SCH ×2 (10:52→11:00)
[2017-11-30] MEDS: amLODIPine BESYLATE 5 MG TABLET (FP) PO SCH (10:52)
[2017-11-30] MEDS: HYDROCHLOROTHIAZIDE 12.5 MG CAPSULE (FP) PO SCH (10:52)
[2017-11-30] MEDS: PANTOPRAZOLE 40 MG TABLET (FP) PO SCH (10:52)
[2017-11-30] MEDS: FERROUS SO4 300 MG/5 ML ORAL SOLN UNIT DOSE CUPS PO SCH ×2 (10:53→10:59)
[2017-11-30] MEDS: RAMIPRIL 2.5 MG CAPSULE (FP) PO SCH ×2 (10:53→10:58)
[2017-11-30] MEDS: INSULIN SLIDING SCALE (NOVOLOG) 1 VIAL SQ SCH ×3 (11:11→22:05)
[2017-11-30] MEDS ORDERED: INSULIN REGULAR HUMAN 100 UNITS/ML *VIAL ONE (11:12)
--- NOTE | 2017-11-30 12:30 | EKG ---
Test Reason : Blood Pressure : / mmHG Vent. Rate : 101 BPM Atrial Rate : 101 BPM P-R Int : 166 ms QRS Dur : 084 ms QT Int : 356 ms P-R-T Axes : 058 012 023 degrees QTc Int : 461 ms SINUS TACHYCARDIA WITH PREMATURE ATRIAL COMPLEXES WITH ABERRANT CONDUCTION MINIMAL VOLTAGE CRITERIA FOR LVH, MAY BE NORMAL VARIANT BORDERLINE ECG WHEN COMPARED WITH ECG OF 29-NOV-2017 12:57, ABERRANT CONDUCTION IS NOW PRESENT Confirmed by TONY EMERSON, AN ([id number]) on 11/30/2017 12:30:26 PM Referred By: Confirmed By:AN JIMENEZ MD
--- NOTE | 2017-11-30 12:31 | EKG ---
Test Reason : Blood Pressure : / mmHG Vent. Rate : 116 BPM Atrial Rate : 116 BPM P-R Int : 140 ms QRS Dur : 070 ms QT Int : 328 ms P-R-T Axes : 056 008 013 degrees QTc Int : 455 ms SINUS TACHYCARDIA MINIMAL VOLTAGE CRITERIA FOR LVH, MAY BE NORMAL VARIANT NONSPECIFIC ST ABNORMALITY ABNORMAL ECG WHEN COMPARED WITH ECG OF 18-SEP-2017 20:47, NO SIGNIFICANT CHANGE WAS FOUND Confirmed by TONY EMERSON, AN ([id number]) on 11/30/2017 12:30:55 PM Referred By: Confirmed By:AN JIMENEZ MD
[2017-11-30 14:01] LABS: BASO % 0.4 % (0-2.0); EOS % 0.3 % (0-4.5); HEMATOCRIT 28.4 % (32.4-45.2); HEMOGLOBIN 9.2 GM/dL (10.7-15.3); LYMPH % 9.7 % (8-40); MCH 26.3 pg (25.7-33.7); MCHC 32.4 g/dl (32.0-36.0); MEAN CELL VOLUME 81.2 fl (80-96); MEAN PLT VOLUME 7.8 fl (7.5-11.1); MONO % 6.7 % (3.8-10.2); NEUT % 82.9 % (42.8-82.8); PLATELET COUNT 176 K/MM3 (134-434); RDW 16.1 % (11.6-15.6); WHITE BLOOD COUNT 6.2 K/mm3 (4.0-10.0)
[2017-11-30] MEDS: MESALAMINE 800 MG TABLET.DR PO SCH ×2 (14:45→22:05)
--- NOTE | 2017-11-30 18:11 | PN ---
Physical Exam: SUBJECTIVE: Patient seen and examined earlier in the ED. OBJECTIVE: 450cc of gross hematuria seen in [place] Vital Signs Period Temp Pulse Resp BP Sys/Pollack Pulse Ox Last 24 Hr 98.2 F-99.6 F 79-89 16-18 124-161/52-94 97-99 GENERAL: The patient is awake, alert, and fully oriented, in no acute distress. HEAD: Normal with no signs of trauma. EYES: PERRL, extraocular movements intact, sclera anicteric, conjunctiva clear. No ptosis. ENT: Ears normal, nares patent, oropharynx clear without exudates, moist mucous membranes. NECK: Trachea midline, full range of motion, supple. LUNGS: Breath sounds equal, clear to auscultation bilaterally, no wheezes, no crackles, no accessory muscle use. HEART: Regular rate and rhythm, S1, S2 without murmur, rub or gallop. ABDOMEN: mildly distended, no guarding, no rebound, no hepatosplenomegaly, no masses. EXTREMITIES: no edema. NEUROLOGICAL: Normal speech, gait not observed. PSYCH: Normal mood, normal affect. SKIN: Warm, dry, normal turgor, no rashes or lesions noted Laboratory Results - last 24 hr 11/29/17 11/29/17 11/29/17 13:30 15:30 19:35 WBC RBC Hgb Hct MCV MCH MCHC RDW Plt Count MPV Neutrophils % Lymphocytes % Monocytes % Eosinophils % Basophils % PT with INR INR PTT (Actin FS) Sodium Potassium Chloride Carbon Dioxide Anion Gap BUN Creatinine Creat Clearance w eGFR POC Glucometer Random Glucose Calcium Phosphorus Magnesium Total Bilirubin AST ALT Alkaline Phosphatase Total Protein Albumin Ur Leukocyte Esterase Negative Blood Type O POSITIVE O POSITIVE Antibody Screen Negative Crossmatch See Detail 11/29/17 11/30/17 11/30/17 20:21 05:05 06:07 WBC 6.8 5.9 5.5 RBC 2.89 L 3.20 L 3.25 L Hgb 7.7 L D 8.5 L D 8.6 L Hct 23.5 L 25.9 L 26.5 L MCV 81.4 80.8 81.5 MCH 26.6 26.4 26.4 MCHC 32.7 32.7 32.3 RDW 16.8 H 15.8 H 15.9 H Plt Count 167 158 153 MPV 7.4 L 7.7 8.2 Neutrophils % 74.6 Lymphocytes % 15.9 D Monocytes % 8.8 D Eosinophils % 0.6 D Basophils % 0.1 PT with INR INR PTT (Actin FS) Sodium Potassium Chloride Carbon Dioxide Anion Gap BUN Creatinine Creat Clearance w eGFR POC Glucometer Random Glucose Calcium Phosphorus Magnesium Total Bilirubin AST ALT Alkaline Phosphatase Total Protein Albumin Ur Leukocyte Esterase Blood Type Antibody Screen Crossmatch 11/30/17 11/30/17 11/30/17 06:07 06:07 09:27 WBC RBC Hgb Hct MCV MCH MCHC RDW Plt Count MPV Neutrophils % Lymphocytes % Monocytes % Eosinophils % Basophils % PT with INR 12.20 H INR 1.08 PTT (Actin FS) 27.3 Sodium 140 Potassium 4.4 Chloride 108 H Carbon Dioxide 26 Anion Gap 6 L BUN 19 H D Creatinine 0.8 Creat Clearance w eGFR > 60 POC Glucometer [phone] Random Glucose 128 H D Calcium 7.8 L Phosphorus 3.3 Magnesium 2.0 Total Bilirubin 1.0 D AST 11 L D ALT 20 Alkaline Phosphatase 75 D Total Protein 5.7 L Albumin 2.8 L Ur Leukocyte Esterase Blood Type Antibody Screen Crossmatch 11/30/17 11/30/17 11:09 13:48 WBC 6.2 RBC 3.50 L Hgb 9.2 L Hct 28.4 L MCV 81.2 MCH 26.3 MCHC 32.4 RDW 16.1 H Plt Count 176 MPV 7.8 Neutrophils % 82.9 H Lymphocytes % 9.7 D Monocytes % 6.7 Eosinophils % 0.3 Basophils % 0.4 D PT with INR INR PTT (Actin FS) Sodium Potassium Chloride Carbon Dioxide Anion Gap BUN Creatinine Creat Clearance w eGFR POC Glucometer [phone] Random Glucose Calcium Phosphorus Magnesium Total Bilirubin AST ALT Alkaline Phosphatase Total Protein Albumin Ur Leukocyte Esterase Blood Type Antibody Screen Crossmatch Active Medications Generic Name Dose Route Start Last Admin Trade Name Freq PRN Reason Stop Dose Admin Amlodipine Besylate 5 mg 11/30/17 10:00 11/30/17 10:52 Norvasc - PO 5 mg DAILY LUIS MIGUEL Administration Cholecalciferol 5,000 unit 11/30/17 10:00 11/30/17 11:00 Vitamin D3 - PO 5,000 unit DAILY LUIS MIGUEL Administration Ferrous Sulfate 300 mg 11/30/17 10:00 11/30/17 10:59 Feosol PO 300 mg DAILY LUIS MIGUEL Administration Hydrochlorothiazide 12.5 mg 11/30/17 10:00 11/30/17 10:52 Hctz - PO 12.5 mg DAILY LUIS MIGUEL Administration Insulin Aspart 1 vial 11/30/17 11:00 11/30/17 11:11 Novolog Vial Sliding Scale - SQ 2 units ACHS LUIS MIGUEL Administration Protocol Mesalamine 800 mg 11/30/17 14:00 11/30/17 14:45 Asacol Hd - PO 800 mg TID LUIS MIGUEL Administration Pantoprazole Sodium 40 mg 11/30/17 10:00 11/30/17 10:52 Protonix - PO 40 mg DAILY LUIS MIGUEL Administration Ramipril 2.5 mg 11/30/17 10:00 11/30/17 10:58 Altace - PO 2.5 mg DAILY LUIS MIGUEL Administration ASSESSMENT/PLAN: Patient is a 67 year-old female with a PMH significant for HTN, HLD, IDDM and uterine cancer. Presented to the ED with complaints of vaginal bleeding and suprapubic pain and pressure. A whatley cathether was placed in the ED for worsening suprapubic pain and discomfort. See in the ED earlier today and a whatley was noted to contain 400cc of rodolfo hematuria. hmg/hmt currently stable. Bladder ultrasound 11/29/2017: ecogenic materail within the urinary bladder suspicious for clots : Hematuria Rodolfo Hematuria Acute blood loss anemia hmg remains stable, recheck at 10pm 2 units of prbc on hold irrigate whatley with 30cc of sterile saline prn q4 Urology consulted, possible cysto? No flank pain, or tenderness No fevers, WBC within normal limits F.E.N. NS @ 100cc/hr Electrolytes: monitor Nutrition: low salt Prophy: GI: Protonix DVT: SCDs Disposition: requires inpatient hospitalization.
[2017-11-30] MEDS: SODIUM CHLORIDE 1,000 ML IV SCH (20:06)
[2017-11-30 22:44] LABS: BASO % 0.2 % (0-2.0); EOS % 0.4 % (0-4.5); HEMATOCRIT 25.8 % (32.4-45.2); HEMOGLOBIN 8.6 GM/dL (10.7-15.3); LYMPH % 13.8 % (8-40); MCH 26.8 pg (25.7-33.7); MCHC 33.2 g/dl (32.0-36.0); MEAN CELL VOLUME 80.8 fl (80-96); MEAN PLT VOLUME 7.9 fl (7.5-11.1); MONO % 8.4 % (3.8-10.2); NEUT % 77.2 % (42.8-82.8); PLATELET COUNT 151 K/MM3 (134-434); RDW 15.5 % (11.6-15.6); WHITE BLOOD COUNT 5.7 K/mm3 (4.0-10.0)
[2017-12-01] MEDS: MESALAMINE 800 MG TABLET.DR PO SCH ×3 (06:04→21:15)
[2017-12-01 07:39] LABS: BASO % 0.3 % (0-2.0); EOS % 0.8 % (0-4.5); HEMATOCRIT 25.4 % (32.4-45.2); HEMOGLOBIN 8.5 GM/dL (10.7-15.3); MCH 26.9 pg (25.7-33.7); MCHC 33.4 g/dl (32.0-36.0); MEAN CELL VOLUME 80.3 fl (80-96); MONO % 8.9 % (3.8-10.2); PLATELET COUNT 149 K/MM3 (134-434); RBC 3.16 M/mm3 (3.60-5.2); RDW 15.8 % (11.6-15.6); WHITE BLOOD COUNT 4.9 K/mm3 (4.0-10.0)
[2017-12-01 08:03] LABS: ALBUMIN 2.7 g/dl (3.4-5.0); ANION GAP 9 (8-16); BLOOD UREA NITROGEN 15 mg/dL (7-18); CALCIUM 8.3 mg/dL (8.5-10.1); CHLORIDE 107 mmol/L (98-107); CO2 25 mmol/L (21-32); CREATININE 0.9 mg/dL (0.55-1.02); GLUCOSE,RANDOM 151 mg/dL (74-106); POTASSIUM 3.9 mmol/L (3.5-5.1); SGOT/AST 11 U/L (15-37); SGPT/ALT 20 U/L (12-78); SODIUM 141 mmol/L (136-145)
[2017-12-01 08:05] LABS: ALK PHOS 74 U/L (45-117); BILIRUBIN,TOTAL 0.8 mg/dL (0.2-1.0); TOT PROT 5.9 g/dl (6.4-8.2)
[2017-12-01] MEDS: INSULIN SLIDING SCALE (NOVOLOG) 1 VIAL SQ SCH ×4 (09:15→21:14)
[2017-12-01] MEDS ORDERED: INSULIN (NOVOLOG) ASPART 100 UNITS/ML 10ML VIAL ONE ×2 (09:39→11:24)
[2017-12-01] MEDS: PANTOPRAZOLE 40 MG TABLET (FP) PO SCH (10:11)
[2017-12-01] MEDS: FERROUS SO4 300 MG/5 ML ORAL SOLN UNIT DOSE CUPS PO SCH (10:11)
[2017-12-01] MEDS: HYDROCHLOROTHIAZIDE 12.5 MG CAPSULE (FP) PO SCH (10:11)
[2017-12-01] MEDS: RAMIPRIL 2.5 MG CAPSULE (FP) PO SCH (10:11)
[2017-12-01] MEDS: amLODIPine BESYLATE 5 MG TABLET (FP) PO SCH (10:11)
[2017-12-01] MEDS: CHOLECALCIFEROL (VITAMIN D3) 1,000 UNIT TABLET (FP) PO SCH (10:11)
--- NOTE | 2017-12-01 13:29 | CON.GU ---
Consult Consult Specialty:: Reason for Consultation:: hematuria - History of Present Illness Chief Complaint: vaginal bleeding and SP pressure History of Present Illness: 67 yo f pres to ER c/o SP pressure and vaginal bleeding, found to have gross hematuria and cons req. Pt had whatley inserted and feels better today, without any further gross hematuria or pain. - History Source History Provided By: Patient, Medical Record - Past Medical History Cardio/Vascular: Yes: HTN, Hyperlipdemia Endocrine: Yes: Diabetes Mellitus - Alcohol/Substance Use Hx Alcohol Use: No - Smoking History Smoking history: Never smoked Have you smoked in the past 12 months: No Home Medications - Allergies Allergies/Adverse Reactions: Allergies Allergy/AdvReac Type Severity Reaction Status Date / Time No Known Allergies Allergy Verified 11/29/17 13:09 - Home Medications Home Medications: Ambulatory Orders Cholecalciferol (Vitamin D3) [Vitamin D3] 5,000 unit PO DAILY 07/10/17 Ferrous Sulfate [Ferosul] 300 mg PO DAILY 07/10/17 Linagliptin [Tradjenta] 5 mg PO DAILY 07/10/17 Mesalamine [Asacol HD -] 800 mg PO TID 07/10/17 Pantoprazole Sodium 40 mg PO DAILY 07/10/17 Amlodipine Besylate 5 mg PO DAILY 09/18/17 Aspirin [ASA -] 81 mg PO DAILY 09/18/17 Hydrochlorothiazide [Hctz -] 12.5 mg PO DAILY 09/18/17 Insulin Degludec [Tresiba Flextouch U-100] 55 unit SQ DAILY 09/18/17 Metformin HCl 500 mg PO DAILY 09/18/17 Oxybutynin Chloride [Ditropan Xl] 10 mg PO DAILY 09/18/17 Psyllium Husk [Metamucil] 425 gm PO DAILY 09/18/17 Ramipril 2.5 mg PO DAILY 09/18/17 Sulfamethoxazole/Trimethoprim [Bactrim DS -] 1 each PO BID #14 tablet 09/26/17 Review of Systems - Review of Systems Genitourinary: reports: Hematuria Physical Exam- Vital Signs: Vital Signs Temperature 98.3 F 12/01/17 10:00 Pulse Rate 83 12/01/17 10:00 Respiratory Rate 16 12/01/17 10:00 Blood Pressure 139/65 12/01/17 10:00 O2 Sat by Pulse Oximetry (%) 98 12/01/17 10:00 Gastrointestinal: Yes: WNL, Normal Bowel Sounds, Soft Renal/: Yes: Whatley Present (clear yellow urine) Labs: CBC, BMP 12/01/17 07:20 12/01/17 07:20 Imaging - Results Ultrasound: Report Reviewed Problem List - Problems (1) Hematuria Code(s): R31.9 - HEMATURIA, UNSPECIFIED Qualifiers: Hematuria type: gross Qualified Code(s): R31.0 - Gross hematuria Assessment/Plan Imp: gross hematuria, hx uterine ca Rec: u/a, ur c+s, whatley, CT abd pelvis pre and post iv contrast. Await ct findings, OK to remove whatley. She may need cystoscopy and evacuation of clots if seen on CT.
--- NOTE | 2017-12-01 14:29 | PN ---
Physical Exam: SUBJECTIVE: Patient seen and examined, states she feels better today. Family at bedside. No issues overnight, no abdominal pain, no flank pain. OBJECTIVE: Pt received 1 unit of prbc and has not needed any further blood, CBC stable: blood bank informed to release hold Clear yellow urine on whatley, no suprapubic pain Discussed with urologist who saw pt today, CT scan of abd/pelvis ordered Repeat ua/uc studies, d/c whatley Continue IVF for now Vital Signs Period Temp Pulse Resp BP Sys/Pollack Pulse Ox Last 24 Hr 97.9 F-98.4 F 71-89 14-18 129-161/65-79 98-100 GENERAL: The patient is awake, alert, and fully oriented, in no acute distress. HEAD: Normal with no signs of trauma. EYES: PERRL, extraocular movements intact, sclera anicteric, conjunctiva clear. No ptosis. ENT: Ears normal, nares patent, oropharynx clear without exudates, moist mucous membranes. NECK: Trachea midline, full range of motion, supple. LUNGS: Breath sounds equal, clear to auscultation bilaterally, no wheezes, no crackles, no accessory muscle use. HEART: Regular rate and rhythm ABDOMEN: Soft, nontender, nondistended, normoactive bowel sounds, no guarding, no suparpubic pain or tenderness, no flank pain EXTREMITIES: no edema. NEUROLOGICAL: Normal speech, gait not observed. PSYCH: Normal mood, normal affect. SKIN: Warm, dry, normal turgor, no rashes or lesions noted Laboratory Results - last 24 hr 11/30/17 11/30/17 12/01/17 18:05 22:00 00:41 WBC 5.7 RBC 3.20 L Hgb 8.6 L Hct 25.8 L MCV 80.8 MCH 26.8 MCHC 33.2 RDW 15.5 Plt Count 151 MPV 7.9 Neutrophils % 77.2 Lymphocytes % 13.8 D Monocytes % 8.4 Eosinophils % 0.4 Basophils % 0.2 Sodium Potassium Chloride Carbon Dioxide Anion Gap BUN Creatinine Creat Clearance w eGFR POC Glucometer [phone] Random Glucose Calcium Total Bilirubin AST ALT Alkaline Phosphatase Total Protein Albumin 12/01/17 12/01/17 12/01/17 07:20 07:20 08:21 WBC 4.9 RBC 3.16 L Hgb 8.5 L Hct 25.4 L MCV 80.3 MCH 26.9 MCHC 33.4 RDW 15.8 H Plt Count 149 MPV 8.0 Neutrophils % 75.0 Lymphocytes % 15.0 Monocytes % 8.9 Eosinophils % 0.8 D Basophils % 0.3 Sodium 141 Potassium 3.9 Chloride 107 Carbon Dioxide 25 Anion Gap 9 BUN 15 D Creatinine 0.9 Creat Clearance w eGFR > 60 POC Glucometer 164.51986 Random Glucose 151 H Calcium 8.3 L Total Bilirubin 0.8 AST 11 L ALT 20 Alkaline Phosphatase 74 Total Protein 5.9 L Albumin 2.7 L 12/01/17 11:19 WBC RBC Hgb Hct MCV MCH MCHC RDW Plt Count MPV Neutrophils % Lymphocytes % Monocytes % Eosinophils % Basophils % Sodium Potassium Chloride Carbon Dioxide Anion Gap BUN Creatinine Creat Clearance w eGFR POC Glucometer [phone] Random Glucose Calcium Total Bilirubin AST ALT Alkaline Phosphatase Total Protein Albumin Active Medications Generic Name Dose Route Start Last Admin Trade Name Freq PRN Reason Stop Dose Admin Amlodipine Besylate 5 mg 11/30/17 10:00 12/01/17 10:11 Norvasc - PO 5 mg DAILY LUIS MIGUEL Administration Cholecalciferol 5,000 unit 11/30/17 10:00 12/01/17 10:11 Vitamin D3 - PO 5,000 unit DAILY LUIS MIGUEL Administration Ferrous Sulfate 300 mg 11/30/17 10:00 12/01/17 10:11 Feosol PO 300 mg DAILY LUIS MIGUEL Administration Hydrochlorothiazide 12.5 mg 11/30/17 10:00 12/01/17 10:11 Hctz - PO 12.5 mg DAILY LUIS MIGUEL Administration Sodium Chloride 1,000 mls @ 100 mls/hr 11/30/17 18:30 11/30/17 20:06 Normal Saline - IV 100 mls/hr ASDIR LUIS MIGUEL Administration Insulin Aspart 1 vial 11/30/17 11:00 12/01/17 11:21 Novolog Vial Sliding Scale - SQ 6 units ACHS LUIS MIGUEL Administration Protocol Mesalamine 800 mg 11/30/17 14:00 12/01/17 06:04 Asacol Hd - PO 800 mg TID LUIS MIGUEL Administration Pantoprazole Sodium 40 mg 11/30/17 10:00 12/01/17 10:11 Protonix - PO 40 mg DAILY LUIS MIGUEL Administration Ramipril 2.5 mg 11/30/17 10:00 12/01/17 10:11 Altace - PO 2.5 mg DAILY LUIS MIGUEL Administration ASSESSMENT/PLAN: Patient is a 67 year-old female with a PMH significant for hypertension, hyperlipidemia, diabetes and uterine cancer. Presented to the ED on with complaints of vaginal bleeding and suprapubic pain and pressure that began on 11/29/2017 in the a.m. that worsened over the past few hours. She has a hx of uterine cancer numerous years ago but denies any vaginal bleed since menopause or any hematuria episodes. Her last colonoscopy was 4 years ago. Imaging: Bladder ultrasound 11/29/2017: ecogenic materail within the urinary bladder suspicious for clots Vaginal ultrasound 11/29/2017: No uterine masses seen : Hematuria with blood loss anemia, acute Carlos Hematuria seen in whatley cath on admission, transvaginal u/s negative for masses Urine now clear yellow, apx 500cc s/p 1 unit of prbc, serial CBCs stable No flank pain or tenderness, wbc stable, no fevers CT abd/pelvis w/contrast ordered, possible cysto as per urology Whatley d/c by urology Monitor intake and output Urine culture <10,000 cfu Repeat UA, UC ordered Voiding trial Cardiology: Hypertension, above goal Amlodopine 5mg x 1 now Endocrine: Diabetes BGM monitoring Novolog sliding scale Diabetic diet F.E.N. NS @ 100cc/hr Electrolytes: monitor Nutrition: low salt Prophy: GI: Protonix DVT: SCDs Disposition: requires inpatient hospitalization. Visit type - Emergency Visit Emergency Visit: Yes ED Registration Date: 11/29/17 Care time: The patient presented to the Emergency Department on the above date and was hospitalized for further evaluation of their emergent condition. - New Patient This patient is new to me today: No - Critical Care Critical Care patient: No - Discharge Referral Referred to [facility] No
[2017-12-01 15:59] LABS: BASO % 0.1 % (0-2.0); EOS % 0.7 % (0-4.5); HEMATOCRIT 28.8 % (32.4-45.2); HEMOGLOBIN 9.7 GM/dL (10.7-15.3); LYMPH % 15.1 % (8-40); MCH 27.1 pg (25.7-33.7); MCHC 33.6 g/dl (32.0-36.0); MEAN CELL VOLUME 80.6 fl (80-96); MEAN PLT VOLUME 7.9 fl (7.5-11.1); MONO % 7.3 % (3.8-10.2); NEUT % 76.8 % (42.8-82.8); PLATELET COUNT 171 K/MM3 (134-434); RBC 3.57 M/mm3 (3.60-5.2); RDW 15.4 % (11.6-15.6)
[2017-12-01 16:02] LABS: URINE APPEARANCE CLEAR; URINE BILIRUBIN NEGATIVE (NEGATIVE); URINE BLOOD 1+ (NEGATIVE); URINE COLOR STRAW; URINE GLUCOSE (UA) 1+ (NEGATIVE); URINE KETONE NEGATIVE (NEGATIVE); URINE NITRITE NEGATIVE (NEGATIVE); URINE UROBILINOGEN NEGATIVE mg/dL (0.2-1.0)
[2017-12-01 16:04] LABS: URINE LEUK ESTERASE 2+ (NEGATIVE); URINE PROTEIN 2+ (NEGATIVE)
[2017-12-01] MEDS ORDERED: amLODIPine BESYLATE 5 MG TABLET (FP) PO ONE (16:55)
[2017-12-01 17:25] LABS: URINE BACTERIA RARE /hpf (NONE SEEN); URINE MUCUS RARE
[2017-12-01] MEDS: SODIUM CHLORIDE 1,000 ML IV SCH (17:51)
[2017-12-02] MEDS: INSULIN SLIDING SCALE (NOVOLOG) 1 VIAL SQ SCH ×4 (06:14→21:30)
[2017-12-02] MEDS: MESALAMINE 800 MG TABLET.DR PO SCH ×3 (06:14→21:24)
--- NOTE | 2017-12-02 09:24 | PN ---
Physical Exam: SUBJECTIVE: Patient seen and examined. Feels much better. Hematuria has subsided. No other bleeding source or episodes. OBJECTIVE: Vital Signs Period Temp Pulse Resp BP Sys/Pollack Pulse Ox Last 24 Hr 98.2 F-98.8 F 77-89 16-20 132-161/65-80 98-100 GENERAL: The patient is awake, alert, and fully oriented, in no acute distress. LUNGS: Breath sounds CTA HEART: RRR, S1, S2 ABDOMEN: Soft, nontender, nondistended, normoactive bowel sounds, no guarding, no rebound : external exam, no obvious bleeding EXTREMITIES: 2+ pulses, warm, well-perfused, no edema. NEUROLOGICAL: Cranial nerves II through XII grossly intact. Normal speech, gait not observed. Laboratory Results - last 24 hr 12/01/17 12/01/17 12/01/17 11:19 15:05 15:30 WBC 6.0 RBC 3.57 L Hgb 9.7 L D Hct 28.8 L MCV 80.6 MCH 27.1 MCHC 33.6 RDW 15.4 Plt Count 171 MPV 7.9 Neutrophils % 76.8 Lymphocytes % 15.1 Monocytes % 7.3 Eosinophils % 0.7 Basophils % 0.1 POC Glucometer [phone] Urine Color Straw Urine Appearance Clear Urine pH 6.0 Ur Specific [place] 1.006 Urine Protein 2+ H Urine Glucose (UA) 1+ H D Urine Ketones Negative Urine Blood 1+ H Urine Nitrite Negative Urine Bilirubin Negative Urine Urobilinogen Negative Ur Leukocyte Esterase 2+ H Urine WBC (Auto) 22 Urine RBC (Auto) 11 Urine Bacteria Rare Urine Mucus Rare Active Medications Generic Name Dose Route Start Last Admin Trade Name Freq PRN Reason Stop Dose Admin Amlodipine Besylate 5 mg 11/30/17 10:12/01/17 10:11 Norvasc - PO 5 mg DAILY LUIS MIGUEL Administration Cholecalciferol 5,000 unit 11/30/17 10:12/01/17 10:11 Vitamin D3 - PO 5,000 unit DAILY LUIS MIGUEL Administration Ferrous Sulfate 300 mg 11/30/17 10:00 12/01/17 10:11 Feosol PO 300 mg DAILY LUIS MIGUEL Administration Hydrochlorothiazide 12.5 mg 11/30/17 10:00 12/01/17 10:11 Hctz - PO 12.5 mg DAILY LUIS MIGUEL Administration Sodium Chloride 1,000 mls @ 100 mls/hr 11/30/17 18:30 12/01/17 17:51 Normal Saline - IV 100 mls/hr ASDIR LUIS MIGUEL Administration Insulin Aspart 1 vial 11/30/17 11:00 12/02/17 06:14 Novolog Vial Sliding Scale - SQ 2 units ACHS LUIS MIGUEL Administration Protocol Mesalamine 800 mg 11/30/17 14:00 12/02/17 06:14 Asacol Hd - PO 800 mg TID LUIS MIGUEL Administration Pantoprazole Sodium 40 mg 11/30/17 10:00 12/01/17 10:11 Protonix - PO 40 mg DAILY LUIS MIGUEL Administration Ramipril 2.5 mg 11/30/17 10:00 12/01/17 10:11 Altace - PO 2.5 mg DAILY LUIS MIGUEL Administration ASSESSMENT/PLAN 67 year-old female with a PMH significant for HTN, HLD, IDDM, and remote history of uterine cancer. Admitted for rodolfo hematuria. Rodolfo hematuria Acute blood loss anemia --hematuria has resolved, Hgb 9.7, hemodynamically stable --has not required transfusion Bilateral hydronephrosis Bilateral hydroureter Left ureteral stricture Bilateral uretritis --12/01 CT: mild bilateral hydronephrosis and hydroureter R>L; thickening and enhancementn of ureteral millan bilaterally down to the UV junction; significant narrowing of distal left ureter; suggestive of bilateral uretritis; possible thickening of urinary bladder --pending urology consult --renal function stable DVT prophylaxis: SCDs Dispo: requires inpatient care Visit type - Emergency Visit Emergency Visit: Yes ED Registration Date: 11/29/17 Care time: The patient presented to the Emergency Department on the above date and was hospitalized for further evaluation of their emergent condition. - New Patient This patient is new to me today: Yes Date on this admission: 12/04/17 - Critical Care Critical Care patient: No
[2017-12-02] MEDS: RAMIPRIL 2.5 MG CAPSULE (FP) PO SCH (10:18)
[2017-12-02] MEDS: CHOLECALCIFEROL (VITAMIN D3) 1,000 UNIT TABLET (FP) PO SCH (10:18)
[2017-12-02] MEDS: amLODIPine BESYLATE 5 MG TABLET (FP) PO SCH (10:19)
[2017-12-02] MEDS: FERROUS SO4 300 MG/5 ML ORAL SOLN UNIT DOSE CUPS PO SCH (10:20)
[2017-12-02] MEDS: PANTOPRAZOLE 40 MG TABLET (FP) PO SCH (10:20)
[2017-12-02] MEDS: HYDROCHLOROTHIAZIDE 12.5 MG CAPSULE (FP) PO SCH (10:20)
--- NOTE | 2017-12-02 13:40 | PN ---
Progres Note Chief Complaint: pt w/o c/o History of Present Illness: pt w/o c/o, voiding clear yellow urine w/o prob - Objective Vital Signs: Vital Signs Temperature 97.7 F 12/02/17 10:00 Pulse Rate 86 12/02/17 10:00 Respiratory Rate 18 12/02/17 10:00 Blood Pressure 150/73 12/02/17 10:00 O2 Sat by Pulse Oximetry (%) 98 12/01/17 21:00 Gastrointestinal: Yes: WNL, Normal Bowel Sounds, Soft Genitourinary: Yes: WNL Labs/Additional Data: CBC, BMP 12/01/17 15:30 12/01/17 07:20 INR, PTT INR 1.08 (0.82-1.09) 11/30/17 06:07 Blood Type Blood Type O POSITIVE 11/29/17 19:35 Antibody Screen Negative 11/29/17 13:30 Imaging - Results Cat Scan: Report Reviewed, Image Reviewed Problem List - Problems (1) Hematuria Code(s): R31.9 - HEMATURIA, UNSPECIFIED Qualifiers: Hematuria type: gross Qualified Code(s): R31.0 - Gross hematuria (2) Ureteritis Code(s): N28.89 - OTHER SPECIFIED DISORDERS OF KIDNEY AND URETER Assessment/Plan Imp: bilateral ureteritis, r/o L distal ureteral stricture, bladder wall thickening, resolved gross hematuria Rec: OK for disch from standpoint, F/U in my office next week, consider cystoscopy, L ureteroscopy, ballon dilation of stricture andL JJ stent insertion..
[2017-12-02] MEDS: SODIUM CHLORIDE 1,000 ML IV SCH (17:35)
[2017-12-02] MEDS ORDERED: PT OWN MED DRAWER 7, Y5N ONE (20:43)
[2017-12-02] MEDS ORDERED: INSULIN (NOVOLOG) ASPART 100 UNITS/ML 10ML VIAL ONE (21:26)
[2017-12-03] MEDS: MESALAMINE 800 MG TABLET.DR PO SCH ×2 (06:10→13:53)
[2017-12-03] MEDS: INSULIN SLIDING SCALE (NOVOLOG) 1 VIAL SQ SCH ×4 (06:10→23:48)
[2017-12-03 08:21] LABS: BASO % 0.4 % (0-2.0); EOS % 2.1 % (0-4.5); HEMATOCRIT 25.5 % (32.4-45.2); HEMOGLOBIN 8.5 GM/dL (10.7-15.3); LYMPH % 21.5 % (8-40); MCH 26.9 pg (25.7-33.7); MCHC 33.3 g/dl (32.0-36.0); MEAN CELL VOLUME 80.7 fl (80-96); MEAN PLT VOLUME 7.8 fl (7.5-11.1); MONO % 9.6 % (3.8-10.2); NEUT % 66.4 % (42.8-82.8); PLATELET COUNT 173 K/MM3 (134-434); RBC 3.16 M/mm3 (3.60-5.2); WHITE BLOOD COUNT 4.1 K/mm3 (4.0-10.0)
[2017-12-03 08:49] LABS: ALBUMIN 2.7 g/dl (3.4-5.0); CALCIUM 8.2 mg/dL (8.5-10.1); CHLORIDE 109 mmol/L (98-107); POTASSIUM 4.1 mmol/L (3.5-5.1); SODIUM 142 mmol/L (136-145)
[2017-12-03 08:55] LABS: ALK PHOS 73 U/L (45-117); ANION GAP 7 (8-16); BILIRUBIN,TOTAL 0.4 mg/dL (0.2-1.0); BLOOD UREA NITROGEN 17 mg/dL (7-18); CO2 26 mmol/L (21-32); CREATININE 0.9 mg/dL (0.55-1.02); GLUCOSE,RANDOM 112 mg/dL (74-106); MAGNESIUM 1.7 mg/dL (1.8-2.4); SGOT/AST 19 U/L (15-37); SGPT/ALT 22 U/L (12-78); TOT PROT 5.8 g/dl (6.4-8.2)
[2017-12-03] MEDS: PANTOPRAZOLE 40 MG TABLET (FP) PO SCH (09:53)
[2017-12-03] MEDS: RAMIPRIL 2.5 MG CAPSULE (FP) PO SCH (09:53)
[2017-12-03] MEDS: HYDROCHLOROTHIAZIDE 12.5 MG CAPSULE (FP) PO SCH (09:54)
[2017-12-03] MEDS: amLODIPine BESYLATE 5 MG TABLET (FP) PO SCH (09:54)
[2017-12-03] MEDS: FERROUS SO4 300 MG/5 ML ORAL SOLN UNIT DOSE CUPS PO SCH (09:54)
[2017-12-03] MEDS: CHOLECALCIFEROL (VITAMIN D3) 1,000 UNIT TABLET (FP) PO SCH (09:54)
[2017-12-03] MEDS ORDERED: CEFTRIAXONE 1 GM in DEXTROSE 5%-WATER - 50 ML IVPB SCH (11:00)
[2017-12-03] MEDS ORDERED: PT OWN MED DRAWER 7, Y5N ONE (13:35)
[2017-12-03] MEDS: CEFTRIAXONE 1 G/50 ML PREMIX 50 ML IVPB SCH (13:50)
[2017-12-03] MEDS ORDERED: BISACODYL 10 MG SUPP.RECT PR ONE (15:18)
--- NOTE | 2017-12-03 15:21 | PN ---
Physical Exam: SUBJECTIVE: Patient seen and examined. Complaining of gas pains, feels she is constipated. Last BM was 5 days ago. OBJECTIVE: Vital Signs Period Temp Pulse Resp BP Sys/Pollack Pulse Ox Last 24 Hr 97.9 F-98.6 F 81-83 18-18 137-154/73-79 GENERAL: The patient is awake, alert, and fully oriented, in no acute distress. LUNGS: Breath sounds CTA HEART: RRR, S1, S2 ABDOMEN: Soft, nontender, nondistended, normoactive bowel sounds, no guarding, no rebound EXTREMITIES: 2+ pulses, warm, well-perfused, no edema. NEUROLOGICAL: Cranial nerves II through XII grossly intact. Normal speech, gait not observed. Laboratory Results - last 24 hr 11/29/17 12/02/17 12/02/17 13:30 16:38 21:13 WBC RBC Hgb Hct MCV MCH MCHC RDW Plt Count MPV Neutrophils % Lymphocytes % Monocytes % Eosinophils % Basophils % Sodium Potassium Chloride Carbon Dioxide Anion Gap BUN Creatinine Creat Clearance w eGFR POC Glucometer 125 218 Random Glucose Calcium Magnesium Total Bilirubin AST ALT Alkaline Phosphatase C-Reactive Protein Total Protein Albumin HIV 1&2 Antibody Screen HIV P24 Antigen Blood Type O POSITIVE Antibody Screen Negative Crossmatch See Detail 12/03/17 12/03/17 12/03/17 06:09 07:30 07:30 WBC 4.1 D RBC 3.16 L Hgb 8.5 L D Hct 25.5 L MCV 80.7 MCH 26.9 MCHC 33.3 RDW 15.0 Plt Count 173 MPV 7.8 Neutrophils % 66.4 Lymphocytes % 21.5 D Monocytes % 9.6 Eosinophils % 2.1 D Basophils % 0.4 D Sodium 142 Potassium 4.1 Chloride 109 H Carbon Dioxide 26 Anion Gap 7 L BUN 17 Creatinine 0.9 Creat Clearance w eGFR > 60 POC Glucometer 114 Random Glucose 112 H D Calcium 8.2 L Magnesium 1.7 L Total Bilirubin 0.4 D AST 19 D ALT 22 Alkaline Phosphatase 73 C-Reactive Protein 2.9 H Total Protein 5.8 L Albumin 2.7 L HIV 1&2 Antibody Screen HIV P24 Antigen Blood Type Antibody Screen Crossmatch 12/03/17 12/03/17 07:30 11:52 WBC RBC Hgb Hct MCV MCH MCHC RDW Plt Count MPV Neutrophils % Lymphocytes % Monocytes % Eosinophils % Basophils % Sodium Potassium Chloride Carbon Dioxide Anion Gap BUN Creatinine Creat Clearance w eGFR POC Glucometer 228 Random Glucose Calcium Magnesium Total Bilirubin AST ALT Alkaline Phosphatase C-Reactive Protein Total Protein Albumin HIV 1&2 Antibody Screen Negative HIV P24 Antigen Negative Blood Type Antibody Screen Crossmatch Active Medications Generic Name Dose Route Start Last Admin Trade Name Sunnyq PRN Reason Stop Dose Admin Amlodipine Besylate 5 mg 11/30/17 10:00 12/03/17 09:54 Norvasc - PO 5 mg DAILY LUIS MIGUEL Administration Bisacodyl 10 mg 12/03/17 15:18 Dulcolax Suppository - MS 12/03/17 15:19 ONCE ONE Cholecalciferol 5,000 unit 11/30/17 10:00 12/03/17 09:54 Vitamin D3 - PO 5,000 unit DAILY LUIS MIGUEL Administration Docusate Sodium 300 mg 12/03/17 22:00 Colace - PO HS LUIS MIGUEL Ferrous Sulfate 300 mg 11/30/17 10:00 12/03/17 09:54 Feosol PO 300 mg DAILY LUIS MIGUEL Administration Hydrochlorothiazide 12.5 mg 11/30/17 10:00 12/03/17 09:54 Hctz - PO 12.5 mg DAILY LUIS MIGUEL Administration Sodium Chloride 1,000 mls @ 100 mls/hr 11/30/17 18:30 12/02/17 17:35 Normal Saline - IV 100 mls/hr ASDIR LUIS MIGUEL Administration CEFTRIAXONE 1 G/50 ML PREMIX 50 mls @ 100 mls/hr 12/03/17 12:30 12/03/17 13: 50 Ceftriaxone 1 Gm-D5w Bag IVPB 100 mls/hr DAILY LUIS MIGUEL Administration Insulin Aspart 1 vial 11/30/17 11:00 12/03/17 11:52 Novolog Vial Sliding Scale - SQ 4 units ACHS LUIS MIGUEL Administration Protocol Mesalamine 800 mg 11/30/17 14:00 12/03/17 13:53 Asacol Hd - PO 800 mg TID LUIS MIGUEL Administration Pantoprazole Sodium 40 mg 11/30/17 10:00 12/03/17 09:53 Protonix - PO 40 mg DAILY LUIS MIGUEL Administration Polyethylene Glycol 17 gm 12/03/17 22:00 Miralax (For Daily Use) - PO BID LUIS MIGUEL Ramipril 2.5 mg 11/30/17 10:00 12/03/17 09:53 Altace - PO 2.5 mg DAILY LUIS MIGUEL Administration ASSESSMENT/PLAN 67 year-old female with a PMH significant for HTN, HLD, IDDM, and remote history of uterine cancer. Admitted for rodolfo hematuria. Rodolfo hematuria Acute blood loss anemia --hematuria has resolved, h/h stable, hemodynamically stable --has not required transfusion Bilateral hydronephrosis Bilateral hydroureter Left ureteral stricture Bilateral uretritis --12/01 CT: mild bilateral hydronephrosis and hydroureter R>L; thickening and enhancementn of ureteral millan bilaterally down to the UV junction; significant narrowing of distal left ureter; suggestive of bilateral uretritis; possible thickening of urinary bladder --renal function remains stable --per urology, patient can be followed as outpatient Fecal retention --KUB shows retained stool --Go Litely --hold Asacol DVT prophylaxis: SCDs Dispo: requires inpatient care Visit type - Emergency Visit Emergency Visit: Yes ED Registration Date: 11/29/17 Care time: The patient presented to the Emergency Department on the above date and was hospitalized for further evaluation of their emergent condition. - New Patient This patient is new to me today: No - Critical Care Critical Care patient: No
[2017-12-03] MEDS: SODIUM CHLORIDE 1,000 ML IV SCH (18:30)
[2017-12-03] MEDS ORDERED: PEG3350/SOD SULF,BICARB,CL/KCL 4,000 ML SOLN.RECON PO ONE (19:00)
[2017-12-03] MEDS ORDERED: DOCUSATE SODIUM 100 MG CAPSULE (FP) PO SCH (22:00)
[2017-12-03] MEDS: POLYETHYLENE GLYCOL 3350 119 GM BTL PO SCH (23:42)
[2017-12-04] MEDS: INSULIN SLIDING SCALE (NOVOLOG) 1 VIAL SQ SCH ×2 (06:21→12:02)
[2017-12-04 08:36] LABS: BASO % 0.3 % (0-2.0); HEMATOCRIT 30.6 % (32.4-45.2); LYMPH % 14.8 % (8-40); MCH 26.2 pg (25.7-33.7); MCHC 32.6 g/dl (32.0-36.0); MEAN CELL VOLUME 80.4 fl (80-96); MEAN PLT VOLUME 7.7 fl (7.5-11.1); MONO % 9.2 % (3.8-10.2); NEUT % 74.7 % (42.8-82.8); PLATELET COUNT 245 K/MM3 (134-434); RBC 3.81 M/mm3 (3.60-5.2); RDW 15.1 % (11.6-15.6); WHITE BLOOD COUNT 5.1 K/mm3 (4.0-10.0)
[2017-12-04 09:02] LABS: CHLORIDE 104 mmol/L (98-107); POTASSIUM 3.4 mmol/L (3.5-5.1); SODIUM 141 mmol/L (136-145)
[2017-12-04 09:09] LABS: ALBUMIN 3.2 g/dl (3.4-5.0); ALK PHOS 97 U/L (45-117); ANION GAP 11 (8-16); BILIRUBIN,TOTAL 0.8 mg/dL (0.2-1.0); BLOOD UREA NITROGEN 11 mg/dL (7-18); CALCIUM 8.5 mg/dL (8.5-10.1); CO2 26 mmol/L (21-32); CREATININE 0.9 mg/dL (0.55-1.02); GLUCOSE,RANDOM 145 mg/dL (74-106); MAGNESIUM 1.9 mg/dL (1.8-2.4); SGOT/AST 15 U/L (15-37); SGPT/ALT 26 U/L (12-78); TOT PROT 7.2 g/dl (6.4-8.2)
[2017-12-04] MEDS: CEFTRIAXONE 1 G/50 ML PREMIX 50 ML IVPB SCH (10:49)
[2017-12-04] MEDS: amLODIPine BESYLATE 5 MG TABLET (FP) PO SCH (10:49)
[2017-12-04] MEDS: CHOLECALCIFEROL (VITAMIN D3) 1,000 UNIT TABLET (FP) PO SCH (10:49)
[2017-12-04] MEDS: HYDROCHLOROTHIAZIDE 12.5 MG CAPSULE (FP) PO SCH (10:50)
[2017-12-04] MEDS: PANTOPRAZOLE 40 MG TABLET (FP) PO SCH (10:50)
[2017-12-04] MEDS: RAMIPRIL 2.5 MG CAPSULE (FP) PO SCH (10:50)
[2017-12-04] MEDS: POLYETHYLENE GLYCOL 3350 119 GM BTL PO SCH (10:50)
[2017-12-04] MEDS ORDERED: POTASSIUM CHLORIDE TABS 20 MEQ TABLET.ER (FP) PO ONE (11:04)
--- NOTE | 2017-12-04 11:42 | DS ---
Physical Examination Vital Signs: Vital Signs Temperature 98.9 F 12/04/17 10:34 Pulse Rate 85 12/04/17 10:34 Respiratory Rate 20 12/04/17 10:34 Blood Pressure 142/76 12/04/17 10:34 O2 Sat by Pulse Oximetry (%) 99 12/03/17 21:00 Labs: CBC, BMP 12/04/17 07:00 12/04/17 07:00 Discharge Summary Reason For Visit: HEMATURIA Current Active Problems Anemia (Acute) Hematuria (Acute) Ureteritis (Acute) Hospital Course: The patient has had multiple bowel movements today and is not longer constipated Condition: Improved - Instructions Diet, Activity, Other Instructions: Please return to the ED with new, persistent, or worsening symptoms. Please follow-up with providers as indicated. Referrals: Benjamin Coyne MD [Staff Physician] - 1 Week Andrade Jacinto MD [Staff Physician] - (Please follow-up with Dr. Jacinto within 2- 3 days for further urological evaluation ) Disposition: HOME - Home Medications Comprehensive Discharge Medication List: Ambulatory Orders Cholecalciferol (Vitamin D3) [Vitamin D3] 5,000 unit PO DAILY 07/10/17 Ferrous Sulfate [Ferosul] 300 mg PO DAILY 07/10/17 Linagliptin [Tradjenta] 5 mg PO DAILY 07/10/17 Mesalamine [Asacol HD -] 800 mg PO TID 07/10/17 Pantoprazole Sodium 40 mg PO DAILY 07/10/17 Amlodipine Besylate 5 mg PO DAILY 09/18/17 Aspirin [ASA -] 81 mg PO DAILY 09/18/17 Hydrochlorothiazide [Hctz -] 12.5 mg PO DAILY 09/18/17 Insulin Degludec [Tresiba Flextouch U-100] 55 unit SQ DAILY 09/18/17 Metformin HCl 500 mg PO DAILY 09/18/17 Oxybutynin Chloride [Ditropan Xl] 10 mg PO DAILY 09/18/17 Psyllium Husk [Metamucil] 425 gm PO DAILY 09/18/17 Ramipril 2.5 mg PO DAILY 09/18/17 Sulfamethoxazole/Trimethoprim [Bactrim DS -] 1 each PO BID #14 tablet 09/26/17 Ciprofloxacin [Cipro -] 500 mg PO Q12H #14 tablet 12/04/17 - Discharge Referral Referred to [facility] No
[2017-12-04] MEDS ORDERED: INSULIN (NOVOLOG) ASPART 100 UNITS/ML 10ML VIAL ONE (12:01)
[2017-12-04 15:11] VITALS: BP 155/85; PULSE 99; TEMP 98.2
--- NOTE | 2017-12-05 15:18 | EKG ---
Test Reason : Blood Pressure : / mmHG Vent. Rate : 084 BPM Atrial Rate : 084 BPM P-R Int : 156 ms QRS Dur : 072 ms QT Int : 388 ms P-R-T Axes : 048 014 025 degrees QTc Int : 458 ms NORMAL SINUS RHYTHM MODERATE VOLTAGE CRITERIA FOR LVH, MAY BE NORMAL VARIANT BORDERLINE ECG WHEN COMPARED WITH ECG OF 29-NOV-2017 14:13, ABERRANT CONDUCTION IS NO LONGER PRESENT T WAVE AMPLITUDE HAS DECREASED IN ANTERIOR LEADS Confirmed by Hunter Odonnell MD ([id number]) on 12/05/2017 3:17:50 PM Referred By: Confirmed By:Hunter Odonnell MD
== END 2017-12-04 16:12 | disposition home or self-care (01) | DRG 812 ==
LOC: JER 12:04 → JERBED 17:04 → J5S 12-01 14:04
PROVIDERS: ADMIT Internal Medicine; ATTEND Registered Nurse
PROC: 30233N1 Transfusion of Nonautologous Red Blood Cells into Peripheral Vein, Percutaneous Approach (ICD-10-PCS; principal; 2017-11-29)
DX: D62 Acute posthemorrhagic anemia (principal); N13.1 Hydronephrosis with ureteral stricture, not elsewhere classified; R31.9 Hematuria, unspecified; I10 Essential (primary) hypertension; E78.5 Hyperlipidemia, unspecified; E11.9 Type 2 diabetes mellitus without complications; Z79.4 Long term (current) use of insulin; K59.00 Constipation, unspecified; Z85.42 Personal history of malignant neoplasm of other parts of uterus
CPT/HCPCS: 36415; 36430; 71045-TC; 74019-TC; 74177-TC; 76830-TC; 76856-TC; 80053; 81003; 81015; 82962; 83735; 84100; 85025; 85027; 85610; 85730; 86140; 86850; 86900; 86901; 86922; 87086; 87186; 87389; 93005; 93010; 97161-GP; 99285-25; P9038; P9058

== ENCOUNTER 2022-04-11 09:40 | Day surgery (SDC) | payer MEDICARE, OTHER ==
[~2022-04-11 09:40] MED LIST: FERRIC CARBOXYMALTOSE 750 MG in SODIUM CHLORIDE 250 ML IVPB ONE
[2022-04-11] MEDS ORDERED: FERRIC CARBOXYMALTOSE 750 MG in SODIUM CHLORIDE 250 ML IVPB ONE (10:00)
[2022-04-11 14:53] VITALS: BP 156/63; PULSE 78; TEMP 98.3
== END 2022-04-11 12:00 | disposition home or self-care (01) ==
LOC: JINFUSION 09:40 → J7W 09:42 → JINFUSION 12:00
PROVIDERS: ATTEND Internal Medicine Hematology & Oncology
PROC: 3E033GC Introduction of Other Therapeutic Substance into Peripheral Vein, Percutaneous Approach (ICD-10-PCS; principal; 2022-04-11)
DX: D64.9 Anemia, unspecified (principal)
CPT/HCPCS: 96365; J1439

== ENCOUNTER 2022-04-18 09:24 | Day surgery (SDC) | payer MEDICARE, OTHER ==
[2022-04-18] MEDS ORDERED: FERRIC CARBOXYMALTOSE 750 MG in SODIUM CHLORIDE 250 ML IVPB ONE (10:00)
[2022-04-18 10:01] VITALS: TEMP 97.7
[2022-04-18 10:48] VITALS: BP 164/65; PULSE 66
== END 2022-04-18 10:30 | disposition home or self-care (01) ==
LOC: JINFUSION 09:24 → J7W 09:25 → JINFUSION 10:30
PROVIDERS: ATTEND Internal Medicine Hematology & Oncology
PROC: 3E033GC Introduction of Other Therapeutic Substance into Peripheral Vein, Percutaneous Approach (ICD-10-PCS; principal; 2022-04-18)
DX: D50.9 Iron deficiency anemia, unspecified (principal); I10 Essential (primary) hypertension; E11.9 Type 2 diabetes mellitus without complications; Z79.84 Long term (current) use of oral hypoglycemic drugs
CPT/HCPCS: 96365; J1439

== ENCOUNTER 2024-05-03 11:10 | Inpatient (IN) | payer MEDICARE, OTHER ==
[2024-05-03 12:24] LABS: BASO % 0.3 % (0-2.0); EOS % 0.4 % (0-4.5); HEMATOCRIT 34.2 % (32.4-45.2); HEMOGLOBIN 11.3 GM/dL (10.7-15.3); LYMPH % 17.4 % (8-40); MCH 27.7 pg (25.7-33.7); MEAN CELL VOLUME 83.9 fl (80-96); MEAN PLT VOLUME 7.9 fl (7.5-11.1); MONO % 8.7 % (3.8-10.2); NEUT % 73.2 % (42.8-82.8); PLATELET COUNT 205 10^3/uL (134-434); RBC 4.08 M/mm3 (3.60-5.2); RDW 15.2 % (11.6-15.6); WHITE BLOOD COUNT 4.5 K/mm3 (4.0-10.0)
[2024-05-03 12:31] LABS: INR 1.05 (0.83-1.09); PROTHROMBIN TIME (PATIENT) 11.8 SEC (9.7-13.0)
[2024-05-03 12:34] LABS: ACTIVATED PTT 33.6 SECONDS (25.2-36.5)
[2024-05-03] MEDS ORDERED: ACETAMINOPHEN INJECTION 100 ML IVPB ONE (12:40)
[2024-05-03] MEDS: ACETAMINOPHEN 1000 MG/100 ML BAG IVPB ONE (12:43)
[2024-05-03 12:57] LABS: POTASSIUM 4.8 mmol/L (3.5-5.1)
[2024-05-03 13:00] LABS: ALBUMIN 3.6 g/dl (3.4-5.0); BLOOD UREA NITROGEN 34.3 mg/dL (7-18); CALCIUM 9.4 mg/dL (8.5-10.1); MAGNESIUM 2.2 mg/dL (1.8-2.4)
[2024-05-03 13:03] LABS: CREATININE 1.3 mg/dL (0.55-1.3)
[2024-05-03 13:05] LABS: BILIRUBIN,TOTAL 0.6 mg/dL (0.2-1); TOT PROT 7.6 g/dl (6.4-8.2)
[2024-05-03] MEDS ORDERED: PIPERACILLIN/TAZOB 4.5 GM 4.5 GM/100 ML BAG IVPB ONE (13:19)
[2024-05-03 13:21] LABS: ERYTHROCYTE SEDIMENTATION RATE 53 mm/hr (0-30)
[2024-05-03] MEDS: PIPERACILLIN/TAZOB 4.5 GM 4.5 GM in DEXTROSE 5%-WATER 100 ML IVPB ONE (13:25)
[2024-05-03] MEDS ORDERED: VANCOMYCIN 1 GRAM (PRE-DOCKED) 1,000 MG/250 ML BAG IVPB ONE (13:48)
[2024-05-03] MEDS: VANCOMYCIN 1,000 MG in DEXTROSE 5%-WATER - 250 ML IVPB ONE (14:02)
[2024-05-03] MEDS ORDERED: ACETAMINOPHEN 1000 MG/100 ML BAG IVPB PRN (17:52)
[2024-05-03] MEDS ORDERED: INSULIN (NOVOLOG) ASPART 100 UNITS/ML 10ML VIAL SQ SCH (18:00)
[2024-05-03 18:08] VITALS: BMI 24.5
[2024-05-03] MEDS: VANCOMYCIN 1,000 MG in DEXTROSE 5%-WATER - 250 ML IVPB SCH (19:39)
[2024-05-03] MEDS: PIPERACILLIN/TAZOB 3.375 GM 3.375 GM in DEXTROSE 5%-WATER - 50 ML IVPB SCH (20:47)
[2024-05-03] MEDS: POLYETHYLENE GLYCOL (HEALTHYLAX) 3350 17 GM PACKET PO SCH (21:53)
[2024-05-03] MEDS: INSULIN ASPART SLIDING SCALE (NOVOLOG) 1 VIAL SQ SCH (22:01)
[2024-05-04] MEDS: metFORMIN HCL 500 MG TABLET (FP) PO SCH (06:08)
[2024-05-04 09:33] LABS: BASO % 0.2 % (0-2.0); EOS % 0.7 % (0-4.5); HEMOGLOBIN 11.6 GM/dL (10.7-15.3); MCH 28.2 pg (25.7-33.7); MONO % 7.2 % (3.8-10.2); NEUT % 76.9 % (42.8-82.8); PLATELET COUNT 212 10^3/uL (134-434); RDW 15.4 % (11.6-15.6); WHITE BLOOD COUNT 5.6 K/mm3 (4.0-10.0)
[2024-05-04 09:57] LABS: POTASSIUM 4.3 mmol/L (3.5-5.1)
[2024-05-04 09:58] LABS: CALCIUM 9.5 mg/dL (8.5-10.1)
[2024-05-04 09:59] LABS: ALBUMIN 3.5 g/dl (3.4-5.0); BLOOD UREA NITROGEN 37.1 mg/dL (7-18)
[2024-05-04 10:02] LABS: CREATININE 1.7 mg/dL (0.55-1.3)
[2024-05-04 10:04] LABS: TOT PROT 7.4 g/dl (6.4-8.2)
[2024-05-04] MEDS: ENOXAPARIN NA (PORCINE) 40 MG/0.4 ML DISP.SYRIN SQ SCH (10:04)
[2024-05-04] MEDS: FERROUS SO4 300 MG/5 ML ORAL SOLN UNIT DOSE CUPS PO SCH (10:05)
[2024-05-04 10:06] LABS: BILIRUBIN,TOTAL 0.5 mg/dL (0.2-1)
[2024-05-04] MEDS: HYDROCHLOROTHIAZIDE 12.5 MG CAPSULE (FP) PO SCH (10:06)
[2024-05-04] MEDS: amLODIPine BESYLATE 5 MG TABLET (FP) PO SCH (10:06)
[2024-05-04] MEDS: ASPIRIN 81 MG CHEWABLE TABLETS PO SCH (10:06)
[2024-05-04] MEDS: PANTOPRAZOLE 40 MG TABLET PO SCH (10:06)
[2024-05-04] MEDS: RAMIPRIL 2.5 MG CAPSULE PO SCH (10:07)
[2024-05-06 14:59] VITALS: RESP 18
[2024-05-06] MEDS: COLLAGENASE CLOSTRIDIUM HIST. 30 GRAMS TUBE TP SCH (21:47)
[2024-05-07 08:16] LABS: BASO % 0.2 % (0-2.0); EOS % 0.5 % (0-4.5); HEMATOCRIT 33.3 % (32.4-45.2); HEMOGLOBIN 11.1 GM/dL (10.7-15.3); LYMPH % 14.2 % (8-40); MCH 27.7 pg (25.7-33.7); MCHC 33.3 g/dl (32.0-36.0); MEAN CELL VOLUME 83.1 fl (80-96); MEAN PLT VOLUME 8.3 fl (7.5-11.1); MONO % 8.8 % (3.8-10.2); NEUT % 76.3 % (42.8-82.8); PLATELET COUNT 248 10^3/uL (134-434); RBC 4.02 M/mm3 (3.60-5.2); RDW 15.3 % (11.6-15.6); WHITE BLOOD COUNT 5.1 K/mm3 (4.0-10.0)
[2024-05-07 08:22] LABS: POTASSIUM 4.2 mmol/L (3.5-5.1)
[2024-05-07 08:24] LABS: CALCIUM 9.1 mg/dL (8.5-10.1)
[2024-05-07 08:25] LABS: ALBUMIN 3.3 g/dl (3.4-5.0); BLOOD UREA NITROGEN 31.7 mg/dL (7-18)
[2024-05-07 08:28] LABS: CREATININE 1.5 mg/dL (0.55-1.3)
[2024-05-07 08:29] LABS: BILIRUBIN,TOTAL 0.7 mg/dL (0.2-1); TOT PROT 7.4 g/dl (6.4-8.2)
[2024-05-07] MEDS: metFORMIN HCL 500 MG TABLET (FP) PO SCH (17:05)
[2024-05-07] MEDS: INSULIN (LEVEMIR) 100 UNITS/ML UNITS SQ SCH (22:45)
[2024-05-08] MEDS: INSULIN (LEVEMIR) 100 UNITS/ML UNITS SQ SCH ×2 (06:22→21:47)
[2024-05-08 09:39] LABS: POTASSIUM 4.1 mmol/L (3.5-5.1)
[2024-05-08 09:43] LABS: BLOOD UREA NITROGEN 34.6 mg/dL (7-18)
[2024-05-08 09:46] LABS: ALBUMIN 3.3 g/dl (3.4-5.0); CREATININE 1.6 mg/dL (0.55-1.3)
[2024-05-08 09:47] LABS: BILIRUBIN,TOTAL 0.6 mg/dL (0.2-1)
[2024-05-08 09:48] LABS: TOT PROT 7.5 g/dl (6.4-8.2)
[2024-05-08] MEDS: SODIUM CHLORIDE 0.45% 1,000 ML IV SCH (13:00)
[2024-05-08] MEDS: INSULIN ASPART SLIDING SCALE (NOVOLOG) 1 VIAL SQ SCH (21:49)
[2024-05-09 11:06] LABS: CHOLESTEROL 173 mg/dL (50-200); LDL CHOLESTEROL (ONLY SJRH) 117 mg/dL (5-100)
[2024-05-09 11:08] LABS: HDL CHOLESTEROL 31 mg/dL (40-60)
[2024-05-09 14:27] VITALS: BP 149/71; PULSE 92; TEMP 98.6
[2024-05-09] MEDS: AMOX TR/POT CLAV 500MG/125MG TABLETS (FP) PO SCH (17:00)
== END 2024-05-09 19:23 | disposition home or self-care (01) | DRG 603 ==
LOC: JER 11:10 → JERBED 14:09 → J5S 17:03
PROVIDERS: ADMIT Internal Medicine; ATTEND Internal Medicine
DX: L03.116 Cellulitis of left lower limb (principal); L02.612 Cutaneous abscess of left foot; N17.9 Acute kidney failure, unspecified; E11.621 Type 2 diabetes mellitus with foot ulcer; E11.40 Type 2 diabetes mellitus with diabetic neuropathy, unspecified; I10 Essential (primary) hypertension; D64.9 Anemia, unspecified; E78.5 Hyperlipidemia, unspecified; Z85.42 Personal history of malignant neoplasm of other parts of uterus
CPT/HCPCS: 36415; 73630-TC-LT; 80048; 80053; 80061; 82962; 83036; 83735; 85025; 85610; 85651; 85730; 86140; 86850; 86900; 86901; 87040; 87045; 87046; 87070; 87205; 87324; 87449; 93005; 93010; 97116-GP; 97161-GP; 99285-25; G0480; J0131